=== PATIENT | female | born 1935 | race African-American/Black ===

== ENCOUNTER 2017-01-25 13:21 | Inpatient (IN) | payer MEDICARE ==
[2017-01-25 14:05] LABS: Hematocrit 45 % (35-47); Hemoglobin 14.3 g/dl (12.0-16.0); Mean Corpuscular HGB Conc 32 g/dl (31-36); Mean Corpuscular Hemoglobin 29 pg (27-31); Mean Corpuscular Volume 92 fL (80-97); Mean Platelet Volume 10 um3 (7.4-10.4); Red Cell Distribution Width 17 % (10.5-15); White Blood Count 5.5 10^3/ul (3.5-10.8)
[2017-01-25 14:07] LABS: Add Diff/Slide Review? Slide Review Added; Comments Flag Yes
[2017-01-25 14:33] LABS: Troponin I 0.03 ng/mL (<0.04)
[2017-01-25 14:42] LABS: Albumin 3.3 g/dL (3.2-5.2); BUN/Creatinine Ratio 32.6 (8-20); C Reactive Protein 17.41 mg/L (< 5.00); Calcium 8.9 mg/dL (8.6-10.3); EGFR African American 78.7 (>60); EGFR Non-African American 61.2 (>60); Potassium 4.2 mmol/L (3.5-5.0); Total Bilirubin 0.4 mg/dL (0.2-1.0); Total Protein 7.3 g/dL (6.4-8.9)
--- NOTE | 2017-01-25 18:02 | RAD ---
INDICATION: Right elbow injury COMPARISON: March 06, 2015 TECHNIQUE: AP, lateral, and oblique views were obtained. The examination is mildly limited due to positioning. FINDINGS: There is underlying osteopenia. There is no acute bony change. There is a healed distal humeral fracture. There is osteoarthritic change with sclerosis and bony hypertrophy about the articulating surfaces. There is no definite effusion. IMPRESSION: OLD, HEALED, TRANSCONDYLAR HUMERAL FRACTURE. OSTEOARTHRITIS. NO ACUTE FINDINGS
[2017-01-25] MEDS ORDERED: Insulin LISPRO* 1 UNITS UNIT SUBCUT ONE (18:04)
[2017-01-25] MEDS ORDERED: NS 0.9% 1000 ML* 1,000 ML IV ONE (18:05)
[2017-01-25] MEDS ORDERED: Insulin GLARGINE(*) 1 UNITS UNIT SUBCUT ONE (18:05)
--- NOTE | 2017-01-25 18:09 | ED ---
Rita Lai Edward, scribed for Zainab Javier MD on 01/25/17 at 1725 . HPI Diabetic - HPI Summary HPI Summary: 81 y/o female with Type I DM presents to ED c/o high blood sugar. Pt's blood glucose was 570 at triage. Patient denies diarrhea and vomiting. She states she may have missed a couple of doses of her medication but is unsure. Pt also fell yesterday and now has L elbow pain. PMHx DM type 1. - History Of Current Complaint Chief Complaint: EDDiabeticProb Hx Obtained From: Patient Onset/Duration: Sudden Onset, Still Present Timing: Constant - Allergies/Home Medications Allergies/Adverse Reactions: Allergies Allergy/AdvReac Type Severity Reaction Status Date / Time Aspirin Allergy Intermediate Bleeding Verified 05/29/16 10:03 Hydroxychloroquine Allergy Intermediate Rash Verified 05/29/16 10:03 Latex Allergy Mild Rash Verified 05/29/16 10:03 Amitriptyline Allergy Unknown Unknown Verified 05/29/16 10:03 Reaction Details Penicillins Allergy Unknown Unknown Verified 05/29/16 10:03 Reaction Details PMH/Surg Hx/FS Hx/Imm Hx Previously Healthy: No Endocrine/Hematology History: Reports: Hx Diabetes - TYPE 1 Denies: Hx Anemia Cardiovascular History: Reports: Hx Hypertension, Other Cardiovascular Problems/ Disorders - MYXOMA HEART Denies: Hx Pacemaker/ICD Respiratory History: Reports: Hx Chronic Obstructive Pulmonary Disease (COPD), Other Respiratory Problems/Disorders - COPD GI History: Denies: Hx Jaundice Musculoskeletal History: Reports: Hx Arthritis - RA, Other Musculoskeletal History - OSTEOPOROSIS Sensory History: Reports: Hx Cataracts - BILATERAL, Hx Contacts or Glasses - GLASSES Denies: Hx Hearing Aid Opthamlomology History: Reports: Hx Cataracts - BILATERAL, Hx Contacts or Glasses - GLASSES Neurological History: Reports: Hx Migraine - OCCASIONAL Denies: Hx Headaches Psychiatric History: Denies: Hx Panic Disorder - Cancer History Hx Chemotherapy: No Hx Radiation Therapy: No - Surgical History Surgery Procedure, Year, and Place: Left hip surgery 09/2011, unknown date. cataracts , right hip hemiarthroplasty 2013 Hx Anesthesia Reactions: No - Immunization History Date of Tetanus Vaccine: Unknown Infectious Disease History: Denies: Traveled Outside the [place] in Last 30 Days - Social History Lives: Alone Alcohol Use: None Hx Substance Use: No Substance Use Type: Reports: None Hx Tobacco Use: No Smoking Status (MU): Former Smoker Type: Cigarettes Amount Used/How Often: 1 PPD Have You Smoked in the Last Year: No Review of Systems Constitutional: Negative Eyes: Negative ENT: Negative Cardiovascular: Negative Respiratory: Negative Gastrointestinal: Negative Negative: Vomiting, Diarrhea, Nausea Genitourinary: Negative Positive: Arthralgia - L elbow pain Skin: Negative Neurological: Negative Psychological: Normal All Other Systems Reviewed And Are Negative: Yes Physical Exam Triage Information Reviewed: Yes Vital Signs On Initial Exam: Initial Vitals Temp Pulse Resp BP Pulse Ox 99.6 F 103 18 142/81 95 01/25/17 13:22 01/25/17 13:22 01/25/17 13:22 01/25/17 13:22 01/25/17 13:22 Vital Signs Reviewed: Yes Appearance: Positive: Well-Appearing, No Pain Distress Skin: Positive: Warm, Skin Color Reflects Adequate Perfusion, Dry Eyes: Positive: EOMI, MARINA ENT: Positive: Pharynx normal, TMs normal Neck: Positive: Supple, Nontender Respiratory/Lung Sounds: Positive: Clear to Auscultation, Breath Sounds Present. Negative: Rales, Rhonchi, Wheezes Cardiovascular: Positive: RRR. Negative: Murmur, Rub, Other - No gallop Abdomen Description: Positive: Nontender, Soft. Negative: Distended, Guarding, Other: - No rebound Bowel Sounds: Positive: Present Musculoskeletal: Positive: Strength/ROM Intact, Pain @ - L elbow. Negative: Edema Left, Edema Right Neurological: Positive: Sensory/Motor Intact, Alert, Oriented to Person Place, Time, CN Intact II-III Psychiatric: Positive: Affect/Mood Appropriate Diagnostics - Vital Signs Vital Signs Temp Pulse Resp BP Pulse Ox 01/25/17 13:22 99.6 F 103 18 142/81 95 - Laboratory Lab Results: Lab Results 01/25/17 01/25/17 Range/Units 13:48 13:48 WBC 5.5 (3.5-10.8) 10^3/ul RBC 4.90 (4.0-5.4) 10^6/ul Hgb 14.3 (12.0-16.0) g/dl Hct 45 (35-47) % MCV 92 (80-97) fL MCH 29 (27-31) pg MCHC 32 (31-36) g/dl RDW 17 H (10.5-15) % Plt Count 167 (150-450) 10^3/ul MPV 10 (7.4-10.4) um3 Neut % (Auto) 69.5 (38-83) % Lymph % (Auto) 19.9 L (25-47) % Angelina % (Auto) 7.2 (1-9) % Eos % (Auto) 2.8 (0-6) % Baso % (Auto) 0.6 (0-2) % Absolute Neuts (auto) 3.9 (1.5-7.7) 10^3/ul Absolute Lymphs (auto) 1.1 (1.0-4.8) 10^3/ul Absolute Monos (auto) 0.4 (0-0.8) 10^3/ul Absolute Eos (auto) 0.2 (0-0.6) 10^3/ul Absolute Basos (auto) 0 (0-0.2) 10^3/ul Absolute Nucleated RBC 0.01 10^3/ul Nucleated RBC % 0.2 Sodium 132 L (133-145) mmol/L Potassium 4.2 (3.5-5.0) mmol/L Chloride 103 (101-111) mmol/L Carbon Dioxide 22 (22-32) mmol/L Anion Gap 7 (2-11) mmol/L BUN 29 H (6-24) mg/dL Creatinine 0.89 (0.51-0.95) mg/dL Est GFR ( Amer) 78.7 (>60) Est GFR (Non-Af Amer) 61.2 (>60) BUN/Creatinine Ratio 32.6 H (8-20) Glucose 571 H* (70-100) mg/dL Calcium 8.9 (8.6-10.3) mg/dL Total Bilirubin 0.40 (0.2-1.0) mg/dL AST 15 (13-39) U/L ALT 12 (7-52) U/L Alkaline Phosphatase 59 (34-104) U/L Troponin I 0.03 (<0.04) ng/mL C-Reactive Protein 17.41 H (< 5.00) mg/L Total Protein 7.3 (6.4-8.9) g/dL Albumin 3.3 (3.2-5.2) g/dL Globulin 4.0 (2-4) g/dL Albumin/Globulin Ratio 0.8 L (1-3) Result Diagrams: 01/25/17 13:48 01/25/17 13:48 Lab Statement: Any lab studies that have been ordered have been reviewed, and results considered in the medical decision making process. - Radiology ELBOW XR Xray Interpretation: No Acute Changes - OLD, HEALED, TRANSCONDYLAR HUMERAL FRACTURE. OSTEOARTHRITIS. NO ACUTE FINDINGS Radiology Interpretation Completed By: Radiologist Diabetic Course/Dx - Course Course Of Treatment: 81 yo female with high blood sugars, admitted to hospitalists - Diagnoses Provider Diagnoses: Type 1 diabetes mellitus, uncontrolled, Elbow contusion Discharge - Discharge Plan Condition: Stable Disposition: HOME The documentation as recorded by the Rita rodriguez Edward accurately reflects the service I personally performed and the decisions made by , Zainab Javier MD.
[2017-01-25] MEDS ORDERED: NS 0.9% 1000 ML* 1,000 ML IV SCH ×2 (18:15→20:00)
[2017-01-25] MEDS ORDERED: Dextrose 50% Syringe 50 ML* 25 GM/50 ML SYRINGE IV PUSH PRN (19:58)
[2017-01-25] MEDS ORDERED: Naproxen TAB* 250 MG PO PRN (20:08)
--- NOTE | 2017-01-25 20:50 | RAD ---
INDICATION: Fall. Intracranial injury. COMPARISON: September 15, 2014 TECHNIQUE: Noncontrast axial source images were acquired from the skull base to the vertex. FINDINGS: Ventricles/sulci: There is advanced cortical atrophy with compensatory dilatation of the CSF spaces. Brain parenchyma: There is extensive periventricular and subcortical white matter change compatible with chronic ischemia. Intracranial hemorrhage:None. Extra-axial spaces: There are no abnormal extra axial fluid collections or evidence of extra-axial mass. Calvarium: There is no calvarial fracture or other calvarial abnormality. Scalp: There is no evidence of scalp or extracalvarial soft tissue abnormality. Paranasal sinuses/mastoid: The paranasal sinuses and mastoid air cells are clear. Other: None. IMPRESSION: ADVANCED CORTICAL ATROPHY AND CHRONIC MICROVASCULAR ISCHEMIC CHANGE. NO ACUTE FINDINGS
[2017-01-25] MEDS: Propranolol TAB* 20 MG PO SCH (22:14)
[2017-01-25] MEDS: Heparin VIAL(*) 5000 UNITS/ML VIAL (FIVE THOUSAND) SUBCUT SCH (22:16)
[2017-01-26] MEDS: Heparin VIAL(*) 5000 UNITS/ML VIAL (FIVE THOUSAND) SUBCUT SCH ×3 (05:37→21:12)
--- NOTE | 2017-01-26 08:13 | HP ---
CC: Dr. Bates * HISTORY AND PHYSICAL: DATE OF ADMISSION: 01/25/17 PRIMARY CARE PHYSICIAN: Dr. Bates. CHIEF COMPLAINT: Status post fall and high sugar. HISTORY OF PRESENT ILLNESS: Patient is a 81-year-old female with history of insulin-dependent diabetes and rheumatoid arthritis, who has had problems with recent weight loss and had been evaluated by Dr. Bates for that. She presents to the hospital with her sister. Patient lives alone and she ambulates with a cane. Yesterday, she called her sister when she was lying on the floor after a fall and could not get up. She hit her right elbow. She also stated that she hit her head, but she did not lose consciousness. She stated that when she was waking she felt of a sudden dizzy and she fell down. She denies any chest pain or shortness of breath. She came in to the ED today for evaluation of right elbow that felt "sore" after the fall. She also noted that she did not take her insulin last night and no insulin today in the morning and she took her dose at 11 a.m. just before she presented to the emergency department. In the emergency department, her sugars were initially reported as 571, but without any intervention several hours later, her glucose was noted at 183 and currently is 165 at the time of admission. Patient also had slight of lactic acid at 2.3. She is hyponatremia and appears dehydrated. She is going to be placed on overnight observation with diagnosis of hyperglycemia. PAST MEDICAL HISTORY: 1. Insulin-dependent diabetes. 2. History of benign breast mass resection. 3. History of "impairment cognitive function." 4. History of rheumatoid arthritis mostly in bilateral hands. 5. History of COPD and pulmonary fibrosis, idiopathic. Patient is on oxygen at 3 L at night only. 6. Hypertension. 7. History of fracture of the left hip. 8. Hypercholesterolemia. 9. History of migraines. MEDICATIONS AT HOME: Include: 1. Lantus insulin 6 units b.i.d. and insulin lispro with sliding scale with meals. 2. Patient also uses Ditropan 5 mg daily. 3. Propranolol 20 mg b.i.d. 4. Vitamin D2, 50,000 units weekly. 5. Oyster shell calcium 500 mg b.i.d. 6. Fioricet one tablet every 4 hours p.r.n. 7. Megace 40 mg daily. 8. Prednisone 3 mg daily. 9. Amlodipine 5 mg daily. 10. Potassium chloride 20 mEq daily. 11. Naproxen 500 mg b.i.d. p.r.n. ALLERGIES: Include ASPIRIN causes "bleeding"; HYDROXYCHLOROQUINE causes rash; LATEX, rash; AMITRIPTYLINE and PENICILLIN are also on patient's allergy list. FAMILY HISTORY: Positive for mother with history of colon cancer, who at age of 84 and father with history of "groin aneurysm" who in his 70s secondary to that. SOCIAL HISTORY: Patient has history of 50-pack year smoking, currently does not smoke anymore. She denies any alcohol or drug use. She lives by herself. Her sister, Lana Sanchez, is her surrogate. Patient ambulates with a cane. REVIEW OF SYSTEMS: Please see history of present illness. In addition to the above mentioned, the patient complains of right elbow pain. She stated that she had history of fracture of the right elbow in the past that is healed. She has no problems with range of motion. She did state that she hit her head yesterday when she fell. She denies any chest pain. She states that she usually does get short of breath with minimal exertion and that is chronic due to pulmonary fibrosis and COPD. Patient denies chest pain. Patient has history of chronic bilateral lower extremity edema that is worse when she is standing for a prolonged period of times. Her appetite had been very poor, and the patient's sister is very concern in regards to that. She is to wear oxygen at night at 3 L, but had been refusing in the past. All the remaining 14 systems were reviewed with the patient and patient's sister and were otherwise negative. PHYSICAL EXAMINATION GENERAL: This is a very pleasant 81-year-old female who is in no acute distress. The patient is alert, awake, oriented x3. Rather is a poor historian. VITAL SIGNS: Blood pressure of 165/98, heart rate of 75 and regular, respiratory rate 16, oxygen saturation 91% on room air, temperature 97.7. HEENT: Head, atraumatic, normocephalic. Eyes: Pupils equal and reactive to light and accommodation. Oropharynx clear. Mucosa dry. NECK: Supple. No JVD, no bruit bilaterally. RESPIRATORY: Clear to auscultation bilaterally. CARDIOVASCULAR: Regular rate and rhythm. No murmur. ABDOMEN: Soft, nontender. Bowel sounds present in all 4 quadrants. Slightly distended and tympanitic to percussion. EXTREMITIES: There is +1 pitting pedal edema. Pulses are +2 bilaterally. There is no clubbing or cyanosis. NEUROLOGIC: Speech clear. Cranial nerves II through XII grossly intact. Motor strength is 5/5 bilaterally. On evaluation of the extremities, the patient has right elbow slight contusion and edema, but no problems with range of motion. LABORATORY DATA AND STUDIES: Obtained in the ED are as below: Elbow x-ray on the right side obtained at admission, impression: "Old healed transcondylar humeral fracture and osteoarthritis. No acute findings". CT of brain is pending at the time of dictation. Laboratory values: Sodium of 132, potassium 4.2, chloride 103, carbon dioxide 22, BUN 29, creatinine 0.89. Liver function tests were unremarkable. C- reactive protein of 17, glucose of 571. CBC: White blood cell count of 5.5, hemoglobin of 14.3, hematocrit of 45, and platelets of 167. Patient's urinalysis is pending at the time of dictation. ASSESSMENT AND PLAN: 1. Mariajose Palacios is a 81-year-old female with history of diabetes type 1, insulin controlled but appears brittle, who presented to the hospital after a fall. Patient appears to have a fall, noncompliant with her medications. Apparently, she forgot to take her insulin in the recent past and she has not been taking it routinely since her fall yesterday. It appears that her sugars improved with one dose of her insulin Lantus at 6 units that she administered at home prior to her arrival to the ED. At this point, I will continue her Lantus insulin at 6 units twice a day with insulin lispro sliding scale. 2. Fall. Patient appears mildly dehydrated. I will place the patient on gentle intravenous hydration with normal saline at 75 mL an hour having in mind that the patient's total body weight is 98 pounds. I will also obtain physical therapy, occupational therapy evaluation for safety of patient's discharge home. Patient is going to be placed on observation. 3. In regards to patient's rheumatoid arthritis, patient is going to be continued on prednisone and her remaining medications as previously prescribed at home. 4. For deep venous thrombosis prophylaxis, patient is going to be placed on heparin subcutaneously. 5. Patient's code status is full and her surrogate is her sister, Lana. TIME SPENT: Approximately 70 minutes were spent on admission of this patient, more than half that time was spent [id number] with the patient doing the interview, physical exam. [id number]/CPS #: [id number] MTDD
--- NOTE | 2017-01-26 08:51 | PN ---
Subjective - Subjective Reason for Note: Progress Note History: I reviewed her presentation with the patient, and Dr. Hubbard's H and P. 2 days ago - sister Janet Sanchez she was there in the morning. She called Janet - was on the floor and helped her up. Gave her something to eat. Cleaned her up - incontinent of urine. She was sitting in a chair watching TV when she left. Went back y'day morning - had sat in that chair all night - as though she was afraid to get up/fall. She wouldn't get out of the chair. Gave her b' fast - hungry. Nephew lifted her to her feet to stand up to get her ready to go to the hospital. her right arm was hurting and slightly swollen. FS machine didn't work - battery were low. Had to belt picker new batteries. FS 400s. She took her insulin - she had not taken her lantus. She has been more confused - states she takes her lantus usually. She was hyperglycemic at the hospital. Her sister is becoming more and more concerned - she has become incontinent of urine. Her sister states the walker/cane was not near her when she fell - doesn't use them at home. SH: She lives independently in her home - but is precarious. Her sister sees her on a daily basis - in the mornings. Most of the times she has already taken her insulin. She will fix her breakfast. Main hazards - walking. She is unsteady - refuses O2 most of the time. Worry about falling - has a walker and cane. She uses her walker at night to go to bed. This morning she has pain in her right elbow. She is hungry and has no other pain. She has no other focal symptoms. Active Problems: Active Problems Breast cancer, left (Acute) C50.912 DVT prophylaxis (Acute 09/15/14) [id number] Fall (Acute) Fracture of femoral neck, right (Acute 09/15/14) S72.001A Full code status (Acute 09/15/14) Z78.9 Hyperglycemia (Acute) R73.9 Weight loss (Acute) Chronic obstructive lung disease (Chronic) J44.9 Essential hypertension (Chronic) I10 Fibrosis of lung (Chronic) J84.10 History of fracture of left hip (Chronic) Z87.81 History of right hip hemiarthroplasty (Chronic) Z96.641 Hypercholesteremia (Chronic) E78.0 Migraine (Chronic) G43.909 Osteoporosis (Chronic) M81.0 Rheumatoid arthritis (Chronic) M06.9 Type 1 diabetes mellitus, uncontrolled (Chronic) E10.65 Current Medications: Current Medications Acetaminophen/Butalbital/Caffeine (Fioricet Tab*) 1 tab PO Q4HR PRN PRN Reason: MIGRAINE HEADACHE Amlodipine Besylate (Norvasc Tab*) 5 mg PO DAILY [facility] Dextrose (D50w Syringe 50 Ml*) 12.5 gm IV PUSH .FOR FS < 60 - SS PRN PRN Reason: FS < 60 Heparin Sodium (Porcine) (Heparin Vial(*)) 5,000 units SUBCUT Q8HR [facility] Last Admin: 01/26/17 05:37 Dose: 5,000 units Sodium Chloride (Ns 0.9% 1000 Ml*) 1,000 mls @ 75 mls/hr IV PER RATE [facility] Last Admin: 01/25/17 21:21 Dose: 75 mls/hr Insulin Glargine (Lantus(*)) 6 units SUBCUT BID [facility] Insulin Human Lispro (Humalog*) 0 units SUBCUT AC LAM PRN Reason: Protocol Megestrol Acetate (Megace Susp*) 40 mg PO DAILY [facility] Naproxen (Naprosyn Tab*) 250 mg PO Q8H PRN PRN Reason: PAIN Oxybutynin Chloride (Ditropan Xl Tab*) 5 mg PO DAILY [facility] Potassium Chloride (Klor Con Er Tab*) 20 meq PO DAILY WITH MEAL [facility] Prednisone (Deltasone Tab*) 3 mg PO DAILY [facility] Propranolol HCl (Inderal Tab*) 20 mg PO BID [facility] Last Admin: 01/25/17 22:14 Dose: 20 mg Home Medications: Home Medications Medication Instructions Recorded Confirmed Type Propranolol TAB* [Inderal TAB*] 20 mg PO BID 09/26/12 01/25/17 History amLODIPine TAB* [Norvasc 5 mg TAB*] 5 mg PO DAILY 04/03/14 01/25/17 History Lrrqxnathk-Ajjhvmwxhrkmp-Lthde 1 tab PO Q4HR PRN MDD 6 tabs 04/23/14 01/25/17 History [Butalbital/Acetaminophen/ 50-325-40 mg] Ergocalciferol [Vitamin D2] 50,000 unit PO WEEKLY 04/23/14 01/25/17 History Oyster Shell [Oyster Shell Calcium] 500 mg PO BID 04/23/14 01/25/17 History predniSONE TAB* [Deltasone TAB*] 3 mg PO DAILY 04/23/14 01/25/17 History Insulin Lispro [Humalog Kwikpen] 2 unit SUBCUT BID 01/25/17 01/25/17 History Megestrol SUSP* [Megace SUSP*] 40 mg PO DAILY 01/25/17 01/25/17 History Naproxen [Naproxen 500 mg] 500 mg PO BID PRN 01/25/17 01/25/17 History Oxybutynin XL TAB* [Ditropan Xl 5 mg PO DAILY 01/25/17 01/25/17 History TAB*] Potassium Chlor TAB* [Klor Con ER 20 meq PO DAILY WITH MEAL 01/25/17 01/25/17 History TAB*] Allergies: Allergies Allergy/AdvReac Type Severity Reaction Status Date / Time Aspirin Allergy Intermediate Bleeding Verified 01/25/17 19:44 Hydroxychloroquine Allergy Intermediate Rash Verified 01/25/17 19:44 Latex Allergy Mild Rash Verified 01/25/17 19:44 Amitriptyline Allergy Unknown Unknown Verified 01/25/17 19:44 Reaction Details Penicillins Allergy Unknown Unknown Verified 01/25/17 19:44 Reaction Details Objective - Vital Signs Vital Signs: Vital Signs 01/25/17 01/25/17 01/25/17 19:11 20:09 20:36 Temperature 97.7 F 99.2 F 98.1 F Pulse Rate 75 105 Respiratory 16 20 Rate Blood Pressure 165/98 140/72 (mmHg) O2 Sat by Pulse 91 94 Oximetry 01/25/17 01/26/17 01/26/17 23:22 03:28 07:21 Temperature 98.5 F 98.8 F Pulse Rate 105 93 91 Respiratory 16 15 18 Rate Blood Pressure 154/100 153/94 141/97 (mmHg) O2 Sat by Pulse 86 100 Oximetry - Intake and Output Intake and Output: Intake & Output 01/23/17 01/24/17 01/25/17 01/26/17 11:59 11:59 11:59 11:59 Intake Total 860 Balance 860 Weight 86 lb 9.6 oz Intake: IV Fluids 660 NS (0.9%) 660 Oral 200 Other: Estimated Void Large # Bowel Movements 0 # Voids 2 Intake and Output Start: 01/25/17 19: 13 Freq: DAILY@0600,1400,2200 Status: Active Document 01/26/17 03:49 [id number] (Rec: 01/26/17 03:49 [id number]) - Physical Exam General Physical Exam Comment: She is frail and very thin. Right elbow has no deformity and full ROM General: No Cyanosis, No Anemia, No Jaundice, No Clubbing Skin: Normal: Rash Lungs and Chest: Yes: Chest Expansion Full, Chest Expansion Symetrica, Percussion Note Resonant, Vessicular Breath Sounds. No: Crackles, Wheezes Heart Rate and Rhythm: Regular JVP: Not Elevated Additional Cardiovascular: Yes: Normal Heart Sounds. No: [place] Beat not Displaced - She has a prominent apex beat/Left ventricular heave, Heart Murmur, Pedal Edema Abdominal Exam: Yes: Soft, Bowel Sounds Present. No: Distention, Abdominal Mass , Abdominal Tenderness - Extremities Cranial Nerves II-XII Intact: Yes Limbs: Normal Tone, Normal Coordination, Abnormal Power - generally weak - not focal - Neuro Orientation: A/O x3 Speech: Normal Results - Results Lab Results: Laboratory Results - last 24 hr 01/25/17 01/25/17 18:48 18:52 POC Glucose (mg/dL) 183 H 165 H Radiology Results: Patient Name: MARIAJOSE MAURICIO Medical Record#: [id number] Ordering Physician: Lupe Hubbard MD Acct.#: [id number] : 1935 Age: 81 Sex: F Location: [address] [place] [address] - MEDICAL Exam Date: 01/25/172009 ADM Status: ADM Micheal Order Information: CT BRAIN WO Accession Number: [id number] CPT: 62072 INDICATION: Fall. Intracranial injury. COMPARISON: September 15, 2014 TECHNIQUE: Noncontrast axial source images were acquired from the skull base to the vertex. FINDINGS: Ventricles/sulci: There is advanced cortical atrophy with compensatory dilatation of the CSF spaces. Brain parenchyma: There is extensive periventricular and subcortical white matter change compatible with chronic ischemia. Intracranial hemorrhage:None. Extra-axial spaces: There are no abnormal extra axial fluid collections or evidence of extra-axial mass. Calvarium: There is no calvarial fracture or other calvarial abnormality. Scalp: There is no evidence of scalp or extracalvarial soft tissue abnormality. Paranasal sinuses/mastoid: The paranasal sinuses and mastoid air cells are clear. Other: None. IMPRESSION: ADVANCED CORTICAL ATROPHY AND CHRONIC MICROVASCULAR ISCHEMIC CHANGE. NO ACUTE FINDINGS <Electronically signed by Damian Lewis MD in OV> 01/25/172046 Dictated By: Damian Lewis MD Dictated Date/Time: 01/25/172046 Transcribed Date/Time: 01/25/172042 Copy to: CC:Toni Bates MD; Lupe Hubbard MD Imaging - [facility] Imaging [facility] [address] 1 of Patient Name: MARIAJOSE MAURICIO Medical Record#: [id number] Ordering Physician: Zainab Javier MD Acct.#: [id number] : 1935 Age: 81 Sex: F Location: EMERGENCY DEPARTMENT Exam Date: 01/25/171712 ADM Status: REG ER Order Information: ELBOW RIGHT 3+ VWS Accession Number: [id number] CPT: 30160 INDICATION: Right elbow injury COMPARISON: March 06, 2015 TECHNIQUE: AP, lateral, and oblique views were obtained. The examination is mildly limited due to positioning. FINDINGS: There is underlying osteopenia. There is no acute bony change. There is a healed distal humeral fracture. There is osteoarthritic change with sclerosis and bony hypertrophy about the articulating surfaces. There is no definite effusion. IMPRESSION: OLD, HEALED, TRANSCONDYLAR HUMERAL FRACTURE. OSTEOARTHRITIS. NO ACUTE FINDINGS <Electronically signed by Damian Lewis MD in OV> 01/25/171758 Dictated By: Damian Lewis MD Dictated Date/Time: 01/25/171758 Transcribed Date/Time: 01/25/171755 Copy to: CC:Toni Bates MD; [facility]; Zainab Javier MD Imaging - [facility] Imaging - [facility] Imaging - [facility] [address] [place], [place] [id number] [place] [id number] [place] [id number] ph [phone] ph [phone] ph [phone]) 1 of 1 Assessment - Problem List Assessment: Patient Problems Breast cancer, left (Acute) DVT prophylaxis (Acute 09/15/14) Fall (Acute) Fracture of femoral neck, right (Acute 09/15/14) Full code status (Acute 09/15/14) Hyperglycemia (Acute) Weight loss (Acute) Chronic obstructive lung disease (Chronic) Essential hypertension (Chronic) Fibrosis of lung (Chronic) History of fracture of left hip (Chronic) History of right hip hemiarthroplasty (Chronic) Hypercholesteremia (Chronic) Migraine (Chronic) Osteoporosis (Chronic) Rheumatoid arthritis (Chronic) Type 1 diabetes mellitus, uncontrolled (Chronic) Myxoma of heart (Chronic) Plan: Fall (Acute) Mariajose Mauricio doesn't remember why she fell. She is unsteady and weak. She doesn't use her cane/walker at home and often is not wearing her O2. She injured her right elbow - but she has a normal range of motion and no fracture on radiology. She is frail and her home situation is precarious at the best of times - something her family acknowledges. However, she is fiercely independent. She is able to stand independently from bed walk with a cane this morning with an RN on one side and myself on the other. She looks weak. I see no acute cause for this fall aside from her weakness, refusal to use walker/ cane and history of multiple previous falls over the past few years. It is possible she has had another small CVA - but she shows no focal abnormalities. She is losing weight and is likely failing to thrive. We checked a CT scan abdo /pelvis - this was a limited study as she didn't complete the oral contrast - but there were no signs of any malignancy. I discussed the management plan with the patient, sister and land planner: we will have an OT/PT consultation. If they feel she is safe for discharge, she can go home and we will continue outpatient evaluation. If she is unsafe, we will consider rehabilitation and I will look further at underlying cause for her weight loss - though out of control T1D is quite likely. Breast cancer, left (Acute) No evidence of any further spread DVT prophylaxis (Acute 09/15/14) ongoing Fracture of femoral neck, right (Acute 09/15/14) Hyperglycemia (Acute) This came under rapid control with usual insulin Weight loss (Acute) Her weight is dropping rapidly - on 01/12/2017 she was 95 lbs in my office. She was clothed, and in the hospital she was likely in a gown. However, she has continued weigh loss. I will consider metabolic, endocrine and neoplastic processes. However, most likely she is not coping with living independently Chronic obstructive lung disease (Chronic) I will check a CXR Essential hypertension (Chronic) Running a little high Fibrosis of lung (Chronic) secondary diagnosis History of fracture of left hip (Chronic) History of right hip hemiarthroplasty (Chronic) Hypercholesteremia (Chronic) secondary diagnosis Migraine (Chronic) secondary diagnosis Osteoporosis (Chronic) High risk of significant fractures Rheumatoid arthritis (Chronic) secondary diagnnosis Type 1 diabetes mellitus, uncontrolled (Chronic) major problem with compliance and highly labile diabetes I discussed the above with the patient and she agrees with the plan.
[2017-01-26] MEDS ORDERED: MEGESTROL 40 MG/ML PO SCH (09:00)
[2017-01-26] MEDS: Propranolol TAB* 20 MG PO SCH ×2 (09:36→21:12)
[2017-01-26] MEDS: predniSONE TAB* 1 MG PO SCH (09:36)
[2017-01-26] MEDS: Insulin LISPRO* 1 UNITS UNIT SUBCUT SCH ×3 (09:36→17:26)
[2017-01-26] MEDS: amLODIPine TAB* 5 MG PO SCH (09:36)
[2017-01-26] MEDS: Potassium Chlor TAB* 10 MEQ TAB.ER PO SCH (09:36)
[2017-01-26] MEDS: Oxybutynin XL TAB* 5 MG PO SCH (09:36)
[2017-01-26] MEDS: Insulin GLARGINE(*) 1 UNITS UNIT SUBCUT SCH ×2 (09:37→21:12)
--- NOTE | 2017-01-26 10:47 | RAD ---
INDICATION: Weight loss. COMPARISON: Comparison is made with prior chest x-ray studies from November 10, 2012 and March 02, 2014. TECHNIQUE: Dual-energy PA and lateral views of the chest were obtained. FINDINGS: The heart is within normal limits in size. There is prominence of the central pulmonary vessels suggesting the possibility of pulmonary artery hypertension which appears unchanged. The interstitial markings are increased which are most prominent at the lung bases and have progressed slightly from the prior exam most consistent with chronic interstitial lung disease. No focal infiltrate is seen. No pleural effusion is present. IMPRESSION: FINDINGS MOST CONSISTENT WITH CHRONIC INTERSTITIAL LUNG DISEASE, NO EVIDENCE FOR ACUTE FINDING.
[2017-01-27] MEDS: Heparin VIAL(*) 5000 UNITS/ML VIAL (FIVE THOUSAND) SUBCUT SCH ×3 (05:32→22:34)
[2017-01-27 05:57] LABS: Hematocrit 40 % (35-47); Hemoglobin 12.8 g/dl (12.0-16.0); Mean Corpuscular HGB Conc 32 g/dl (31-36); Mean Corpuscular Hemoglobin 30 pg (27-31); Mean Corpuscular Volume 94 fL (80-97); Mean Platelet Volume 10 um3 (7.4-10.4); Red Blood Count 4.28 10^6/ul (4.0-5.4); Red Cell Distribution Width 17 % (10.5-15); White Blood Count 4.8 10^3/ul (3.5-10.8)
[2017-01-27 06:14] LABS: BUN/Creatinine Ratio 21.9 (8-20); C Reactive Protein 19.71 mg/L (< 5.00); Calcium 8.3 mg/dL (8.6-10.3); EGFR African American 115.1 (>60); EGFR Non-African American 89.5 (>60); Potassium 3.6 mmol/L (3.5-5.0)
--- NOTE | 2017-01-27 08:51 | PN ---
Subjective - Subjective Reason for Note: Progress Note History: She continues to have pain in her right elbow. I have reviewed the PT report - recommends skilled rehab. She has no insight into why she is losing weight. She states sometimes she is hungry, but likely doesn't eat enough. She is hyperglycemic in the hospital on her usual insulin. She is fully oriented x 3 and aware of why she is in the hospital. She denies any new focal symptoms. Active Problems: Active Problems Fall (Acute) Hyperglycemia (Acute) R73.9 Injury of right elbow (Acute) S59.901A Weight loss (Acute) Chronic obstructive lung disease (Chronic) J44.9 DVT prophylaxis (Chronic 09/15/14) [id number] Essential hypertension (Chronic) I10 Fibrosis of lung (Chronic) J84.10 Fracture of femoral neck, right (Chronic 09/15/14) S72.001A Full code status (Chronic 09/15/14) Z78.9 History of fracture of left hip (Chronic) Z87.81 History of right hip hemiarthroplasty (Chronic) Z96.641 Hypercholesteremia (Chronic) E78.0 Migraine (Chronic) G43.909 Osteoporosis (Chronic) M81.0 Rheumatoid arthritis (Chronic) M06.9 Type 1 diabetes mellitus, uncontrolled (Chronic) E10.65 Current Medications: Current Medications Acetaminophen/Butalbital/Caffeine (Fioricet Tab*) 1 tab PO Q4HR PRN PRN Reason: MIGRAINE HEADACHE Amlodipine Besylate (Norvasc Tab*) 5 mg PO DAILY [facility] Last Admin: 01/26/17 09:36 Dose: 5 mg Dextrose (D50w Syringe 50 Ml*) 12.5 gm IV PUSH .FOR FS < 60 - SS PRN PRN Reason: FS < 60 Heparin Sodium (Porcine) (Heparin Vial(*)) 5,000 units SUBCUT Q8HR [facility] Last Admin: 01/27/17 05:32 Dose: 5,000 units Insulin Glargine (Lantus(*)) 6 units SUBCUT BID [facility] Last Admin: 01/26/17 21:12 Dose: 6 units Insulin Human Lispro (Humalog*) 0 units SUBCUT AC [facility] PRN Reason: Protocol Last Admin: 01/26/17 17:26 Dose: 3 units Megestrol Acetate (Megace Susp*) 40 mg PO DAILY [facility] Naproxen (Naprosyn Tab*) 250 mg PO Q8H PRN PRN Reason: PAIN Oxybutynin Chloride (Ditropan Xl Tab*) 5 mg PO DAILY [facility] Last Admin: 01/26/17 09:36 Dose: 5 mg Potassium Chloride (Klor Con Er Tab*) 20 meq PO DAILY WITH MEAL [facility] Last Admin: 01/26/17 09:36 Dose: 20 meq Prednisone (Deltasone Tab*) 3 mg PO DAILY [facility] Last Admin: 01/26/17 09:36 Dose: 3 mg Propranolol HCl (Inderal Tab*) 20 mg PO BID [facility] Last Admin: 01/26/17 21:12 Dose: 20 mg Home Medications: Home Medications Medication Instructions Recorded Confirmed Type Propranolol TAB* [Inderal TAB*] 20 mg PO BID 09/26/12 01/25/17 History amLODIPine TAB* [Norvasc 5 mg TAB*] 5 mg PO DAILY 04/03/14 01/25/17 History Hsenxvrcvk-Odghgdxthxhbc-Moscq 1 tab PO Q4HR PRN MDD 6 tabs 04/23/14 01/25/17 History [Butalbital/Acetaminophen/ 50-325-40 mg] Ergocalciferol [Vitamin D2] 50,000 unit PO WEEKLY 04/23/14 01/25/17 History Oyster Shell [Oyster Shell Calcium] 500 mg PO BID 04/23/14 01/25/17 History predniSONE TAB* [Deltasone TAB*] 3 mg PO DAILY 04/23/14 01/25/17 History Insulin Lispro [Humalog Kwikpen] 2 unit SUBCUT BID 01/25/17 01/25/17 History Megestrol SUSP* [Megace SUSP*] 40 mg PO DAILY 01/25/17 01/25/17 History Naproxen [Naproxen 500 mg] 500 mg PO BID PRN 01/25/17 01/25/17 History Oxybutynin XL TAB* [Ditropan Xl 5 mg PO DAILY 01/25/17 01/25/17 History TAB*] Potassium Chlor TAB* [Klor Con ER 20 meq PO DAILY WITH MEAL 01/25/17 01/25/17 History TAB*] Allergies: Allergies Allergy/AdvReac Type Severity Reaction Status Date / Time Aspirin Allergy Intermediate Bleeding Verified 01/25/17 19:44 Hydroxychloroquine Allergy Intermediate Rash Verified 01/25/17 19:44 Latex Allergy Mild Rash Verified 01/25/17 19:44 Amitriptyline Allergy Unknown Unknown Verified 01/25/17 19:44 Reaction Details Penicillins Allergy Unknown Unknown Verified 01/25/17 19:44 Reaction Details Objective - Vital Signs Vital Signs: Vital Signs 01/26/17 01/26/17 01/26/17 15:18 19:30 20:23 Temperature 98.5 F 97.4 F Pulse Rate 78 71 Respiratory 24 18 Rate Blood Pressure 143/88 141/77 (mmHg) O2 Sat by Pulse 100 94 92 Oximetry 01/26/17 01/26/17 01/27/17 20:47 23:17 05:24 Temperature 98.6 F 97.8 F Pulse Rate 71 68 Respiratory 12 16 16 Rate Blood Pressure 151/85 163/93 (mmHg) O2 Sat by Pulse 96 100 Oximetry - Intake and Output Intake and Output: Intake & Output 01/24/17 01/25/17 01/26/17 01/27/17 11:59 11:59 11:59 11:59 Intake Total 1430 Balance 1430 Intake: Oral 1430 Other: Estimated Void Large # Bowel Movements 0 # Voids 1 ADLs: Meal Record Start: 01/25/17 19: 13 Freq: DAILY@0900,1400,1800 Status: Active Document 01/26/17 09:00 [id number] (Rec: 01/26/17 13:53 [id number] MED-C11) Document 01/26/17 13:53 [id number] (Rec: 01/26/17 13:53 [id number] MED-C11) Document 01/26/17 18:00 [id number] (Rec: 01/26/17 19:06 [id number] MED-C11) ADLs: Meal Record Start: 01/26/17 15: 52 Freq: DAILY@0900,1400,1800 Status: Inactive Created 01/26/17 15:52 [id number] (Rec: 01/26/17 15:52 [id number] MED-M06) Intake and Output Start: 01/25/17 19: 13 Freq: DAILY@0600,1400,2200 Status: Active Document 01/26/17 03:49 [id number] (Rec: 01/26/17 03:49 [id number] MEDL-C01) Document 01/26/17 14:00 [id number] (Rec: 01/26/17 14:58 [id number] MED-C11) Document 01/26/17 22:00 [id number] (Rec: 01/26/17 22:10 [id number] MED-C11) Document 01/26/17 23:49 [id number] (Rec: 01/26/17 23:49 [id number] MEDL-C01) Document 01/27/17 06:00 [id number] (Rec: 01/27/17 06:42 [id number] MED-C09) Intake and Output Start: 01/26/17 15: 52 Freq: DAILY@0600,1400,2200 Status: Inactive Created 01/26/17 15:52 [id number] (Rec: 01/26/17 15:52 [id number] MED-M06) - Physical Exam General Physical Exam Comment: Signs of advanced rheumatoid arthritis. Cachectic General: No Cyanosis, No Anemia, No Jaundice, No Clubbing Heart Rate and Rhythm: Normal JVP: Not Elevated Additional Cardiovascular: Yes: [place] Beat not Displaced - prominent, Normal Heart Sounds, Present Pedal Pulse. No: Heart Murmur, Pedal Edema Breast: Normal Abdominal Exam: Yes: Soft, Bowel Sounds Present. No: Distention, Abdominal Mass , Hepatomegaly, Abdominal Tenderness - Extremities Cranial Nerves II-XII Intact: Yes Limbs: Normal Power, Normal Tone, Normal Coordination - Neuro Orientation: Person Psychiatric: Depressed Speech: Normal Results - Results Lab Results: Laboratory Results - last 24 hr 01/26/17 01/26/17 01/27/17 16:26 17:25 05:29 WBC 4.8 RBC 4.28 Hgb 12.8 Hct 40 MCV 94 MCH 30 MCHC 32 RDW 17 H Plt Count 142 L MPV 10 Neut % (Auto) 38.3 Lymph % (Auto) 48.2 H [place] % (Auto) 9.8 H Eos % (Auto) 2.9 Baso % (Auto) 0.8 Absolute Neuts (auto) 1.8 Absolute Lymphs (auto) 2.3 Absolute Monos (auto) 0.5 Absolute Eos (auto) 0.1 Absolute Basos (auto) 0 Absolute Nucleated RBC 0.01 Nucleated RBC % 0.2 Sodium Potassium Chloride Carbon Dioxide Anion Gap BUN Creatinine Est GFR ( Amer) Est GFR (Non-Af Amer) BUN/Creatinine Ratio Glucose POC Glucose (mg/dL) 259 H Calcium C-Reactive Protein Cortisol 6.05 01/27/17 01/27/17 05:29 07:52 WBC RBC Hgb Hct MCV MCH MCHC RDW Plt Count MPV Neut % (Auto) Lymph % (Auto) [place] % (Auto) Eos % (Auto) Baso % (Auto) Absolute Neuts (auto) Absolute Lymphs (auto) Absolute Monos (auto) Absolute Eos (auto) Absolute Basos (auto) Absolute Nucleated RBC Nucleated RBC % Sodium 136 Potassium 3.6 Chloride 108 Carbon Dioxide 22 Anion Gap 6 BUN 14 Creatinine 0.64 Est GFR ( Amer) 115.1 Est GFR (Non-Af Amer) 89.5 BUN/Creatinine Ratio 21.9 H Glucose 317 H POC Glucose (mg/dL) 335 H Calcium 8.3 L C-Reactive Protein 19.71 H Cortisol Assessment - Problem List Assessment: Patient Problems Fall (Acute) Hyperglycemia (Acute) Injury of right elbow (Acute) Weight loss (Acute) Chronic obstructive lung disease (Chronic) DVT prophylaxis (Chronic 09/15/14) Essential hypertension (Chronic) Fibrosis of lung (Chronic) Fracture of femoral neck, right (Chronic 09/15/14) Full code status (Chronic 09/15/14) History of fracture of left hip (Chronic) History of right hip hemiarthroplasty (Chronic) Hypercholesteremia (Chronic) Migraine (Chronic) Osteoporosis (Chronic) Rheumatoid arthritis (Chronic) Type 1 diabetes mellitus, uncontrolled (Chronic) Plan: Fall (Acute) I reviewed the PT assessment - she would benefit frHyperglycemia ( Acute) Injury of right elbow (Acute) This remains tender Weight loss (Acute) She doesn't understand this and wants it investigated. I asked her about having an oncology referral, she agrees with this. I am also checking an MRI brain. I will have psychiatry see her to rule out a vegetative depression. I think she has capacity, but I want them to comment on this Chronic obstructive lung disease (Chronic) ongoing DVT prophylaxis (Chronic 09/15/14) Essential hypertension (Chronic) stable Fibrosis of lung (Chronic) Dr. Hernandez may check a CT scan of her chest Full code status (Chronic 09/15/14) I reviewed this - she wants to be full code History of fracture of left hip (Chronic) History of right hip hemiarthroplasty (Chronic) Hypercholesteremia (Chronic) ongoing Migraine (Chronic) secondary diagnosis Osteoporosis (Chronic) risk factor Rheumatoid arthritis (Chronic) ongoing Type 1 diabetes mellitus, uncontrolled (Chronic) Certainly, her chronic hyperglycemia could cause weight loss. I have increased her lantus insulin and have introduced carbohydrate counting. She has labile/brittle control and I want to avoid hypoglycemia. I discussed with her code status - she wishes to be full code. She would like to find out why she is losing weight and would like to be able to return to her home. I will therefore investigate further the failure to thrive. I will review my office notes about a mention of myxoma - I do not remember the basis for this.
[2017-01-27] MEDS: predniSONE TAB* 1 MG PO SCH (08:55)
[2017-01-27] MEDS: Potassium Chlor TAB* 10 MEQ TAB.ER PO SCH (08:55)
[2017-01-27] MEDS: amLODIPine TAB* 5 MG PO SCH (08:55)
[2017-01-27] MEDS: Insulin GLARGINE(*) 1 UNITS UNIT SUBCUT SCH (08:56)
[2017-01-27] MEDS ORDERED: Dextrose 50% Syringe 50 ML* 25 GM/50 ML SYRINGE IV PUSH PRN (08:56)
[2017-01-27] MEDS: Insulin LISPRO* 1 UNITS UNIT SUBCUT SCH ×5 (08:57→17:39)
[2017-01-27] MEDS: MEGESTROL 40 MG/ML PO SCH (09:01)
[2017-01-27] MEDS: Oxybutynin XL TAB* 5 MG PO SCH (09:05)
[2017-01-27] MEDS: Propranolol TAB* 20 MG PO SCH ×2 (09:05→22:34)
--- NOTE | 2017-01-27 11:01 | CONSULT ---
Consultation - Reason for Consultation Reason for Consultation: failure to thrive and weight loss Ordering Provider: Toni Bates Chief Complaint: fall History of Present Illness: 81 yo F w poorly controlled type 1 diabetes, rheumatoid arthritis and idiopathic pulmonary fibrosis admitted after an unwitnessed fall with unexplained weight loss and failure to thrive. Mariajose is a bit of a vague historian but reports that her baseline weight is around 108. Over an undefined period of time she has last 20 pounds, currently at 86 pounds. She reports that she has a good appetite and access to food and eats 2-3 meals per day. She denies early satiety or anorexia. She denies nausea or vomiting. She does have long standing constipation. She denies any increase in her baseline SOB and in fact admits to being noncompliant with her oxygen therapy. She denies any back pain, but does report right elbow pain after falling at home. She has no recollection of why she fell but denies being dizzy. She does not think she lost consciousness. She lives alone and her sister found her the next day and brought her in. She denies headaches, blurred vision or diplopia. She denies any known lymphadenopathy. She had a breast biopsy in May of last year for milky left nipple discharge, but it was benign. She denies rashes. She has rheumatoid arthritis in her hands but denies any exacerbation of this. She had a noncontrast scan of her abdomen in November, which was limited by lack of contrast. It did revealed marked pulmonary fibrosis and question of gastroparesis. Her labs are relatively unremarkable with the exception of a long standing protein gap. I do not see prior HIV or hepatitis testing. She did have an elevation of IgA in the past but no SPEP done. She had an echocardiogram in 2014 which showed some dilitation of the right atrium with possibility of a mass not being ruled out. She had a repeat echocardiogram this am. She was recently started on megace by Dr. Bates in attempts to improve her appetite and intake. Allergies/Medications Medication: Acetaminophen/Butalbital/Caffeine (Fioricet Tab*) 1 tab PO Q4HR PRN PRN Reason: MIGRAINE HEADACHE Amlodipine Besylate (Norvasc Tab*) 5 mg PO DAILY [facility] Last Admin: 01/27/17 08:55 Dose: 5 mg Dextrose (D50w Syringe 50 Ml*) 12.5 gm IV PUSH .FOR FS < 60 - SS PRN PRN Reason: FS < 60 Heparin Sodium (Porcine) (Heparin Vial(*)) 5,000 units SUBCUT Q8HR [facility] [place] Last Admin: 01/27/17 05:32 Dose: 5,000 units Insulin Glargine (Lantus(*)) 8 units SUBCUT BID [facility] [place] Insulin Human Lispro (Humalog*) 0 units SUBCUT AC [facility] [place] PRN Reason: Protocol Last Admin: 01/27/17 08:57 Dose: 4 units Insulin Human Lispro (Humalog*) 0 units SUBCUT AC [facility] [place] PRN Reason: Protocol Megestrol Acetate (Megace Susp*) 40 mg PO DAILY [facility] [place] Last Admin: 01/27/17 09:01 Dose: 40 mg Naproxen (Naprosyn Tab*) 250 mg PO Q8H PRN PRN Reason: PAIN Oxybutynin Chloride (Ditropan Xl Tab*) 5 mg PO DAILY [facility] [place] Last Admin: 01/27/17 09:05 Dose: 5 mg Potassium Chloride (Klor Con Er Tab*) 20 meq PO DAILY WITH MEAL [facility] [place] Last Admin: 01/27/17 08:55 Dose: 20 meq Prednisone (Deltasone Tab*) 3 mg PO DAILY [facility] [place] Last Admin: 01/27/17 08:55 Dose: 3 mg Propranolol HCl (Inderal Tab*) 20 mg PO BID [facility] [place] Last Admin: 01/27/17 09:05 Dose: 20 mg Allergies/Adverse Reactions: Allergies Allergy/AdvReac Type Severity Reaction Status Date / Time Aspirin Allergy Intermediate Bleeding Verified 01/25/17 19:44 Hydroxychloroquine Allergy Intermediate Rash Verified 01/25/17 19:44 Latex Allergy Mild Rash Verified 01/25/17 19:44 Amitriptyline Allergy Unknown Unknown Verified 01/25/17 19:44 Reaction Details Penicillins Allergy Unknown Unknown Verified 01/25/17 19:44 Reaction Details History - Past Medical History Other History: hyperlipidemia. breast biopsy, surgical. HTN. idiopathic pulmonary fibrosis. poorly controlled insulin dependant diabetes. rheumatoid arthritis. left hip ORIF - Family History Other Family History: mother colon CA in her 80s - Social History Other Social History: lives independantly, sister involved in care. smoked 50 pk yr but quit in the past. no etoh Review of Systems - Review of Systems General Comments: weight loss, fatigue, right elbow pain, baseline SOB. otherwise negative ROS Physical Exam - Physical Exam Physical Examination: Vital Signs Temp Pulse Resp BP Pulse Ox 98.7 F 69 18 156/79 98 01/27/17 07:24 01/27/17 07:24 01/27/17 07:24 01/27/17 07:24 01/27/17 07:24 frail elderly female lying flat in bed in NAD perr eomi op moist fine crackles S1 s2 nl soft nt +Bs trace le edema small, mobile, soft left axillary LN (6mm) A+0 x 3, grossly nonfocal neuro exam but did not ambulate right elbow: small amount of edema and escoriation Results - Lab Results Lab Results: 01/26/17 01/26/17 01/27/17 16:26 17:25 05:29 WBC 4.8 RBC 4.28 Hgb 12.8 Hct 40 MCV 94 MCH 30 MCHC 32 RDW 17 H Plt Count 142 L MPV 10 Neut % (Auto) 38.3 Lymph % (Auto) 48.2 H [place] % (Auto) 9.8 H Eos % (Auto) 2.9 Baso % (Auto) 0.8 Absolute Neuts (auto) 1.8 Absolute Lymphs (auto) 2.3 Absolute Monos (auto) 0.5 Absolute Eos (auto) 0.1 Absolute Basos (auto) 0 Absolute Nucleated RBC 0.01 Nucleated RBC % 0.2 Sodium Potassium Chloride Carbon Dioxide Anion Gap BUN Creatinine Est GFR ( Amer) Est GFR (Non-Af Amer) BUN/Creatinine Ratio Glucose POC Glucose (mg/dL) 259 H Calcium C-Reactive Protein Cortisol 6.05 01/27/17 01/27/17 05:29 07:52 WBC RBC Hgb Hct MCV MCH MCHC RDW Plt Count MPV Neut % (Auto) Lymph % (Auto) [place] % (Auto) Eos % (Auto) Baso % (Auto) Absolute Neuts (auto) Absolute Lymphs (auto) Absolute Monos (auto) Absolute Eos (auto) Absolute Basos (auto) Absolute Nucleated RBC Nucleated RBC % Sodium 136 Potassium 3.6 Chloride 108 Carbon Dioxide 22 Anion Gap 6 BUN 14 Creatinine 0.64 Est GFR ( Amer) 115.1 Est GFR (Non-Af Amer) 89.5 BUN/Creatinine Ratio 21.9 H Glucose 317 H POC Glucose (mg/dL) 335 H Calcium 8.3 L C-Reactive Protein 19.71 H Cortisol Laboratory Tests 01/25/17 13:48 AST 15 ALT 12 Alkaline Phosphatase 59 Total Protein 7.3 Albumin 3.3 Assessment and Plan Impression: 81 yo F w poorly controlled diabetes, marked idiopathic pulmonary fibrosis, COPD presenting with unexplained 20 lb weight loss and failure to thrive. Her laboratory evaluation is relatively unremarkable with the exception of an elevated protein gap, which might very well be explained by her rheumatoid arthritis and a polyclonal gammopathy. I do think it is reasonable with her long standing tobacco use history, to get a CT of her chest, and would repeat contrast enhanced imaging of her abdomen at that time. She has a very small left axillary node that felt benign on exam, but special attention will be give on the CT. I would also like to check hepatitis C, HIV, and a serum protein electrophoresis. I will follow up on her echocardiogram later today. Her failure to thrive might very well be related to her multiple underlying comorbidities. If this work up is unrevealing she may need more of an assisted living situation to observe caloric intake. Thank you for this consult and we will continue to follow with you.
[2017-01-27] MEDS ORDERED: Iodixanol* (CONTRAST) 320 MG/ML 100 ML SDV IV ONE (11:05)
[2017-01-27] MEDS ORDERED: Insulin LISPRO* 1 UNITS UNIT SUBCUT SCH (11:30)
--- NOTE | 2017-01-27 12:44 | RAD ---
Indication: Fell and hit head a few days ago. Generalized weakness. Failure to thrive. Comparison: January 25, 2017 CT brain. April 25, 2014 MRI brain. Technique: MeFeediaa 1.5 Erin LV618O with GEM suite. MRI brain without contrast. Report: Diffusion series is negative for acute or subacute ischemia. On the susceptibility series there are small foci of artifact consistent with hemosiderin deposition including at the LEFT inferior cerebellar hemisphere and the RIGHT cerebral hemisphere including the parietal lobe white matter, thalamus, and basal ganglia. The supratentorial foci of hemosiderin deposition are new compared with the 2014 exam. Moderate prominence of the cerebral sulci and mild prominence of the cerebellar fissures reflecting atrophy. Proportional enlargement of the ventricles. Chronic finding of extensive symmetric increased signal in the periventricular and subcortical white matter of the cerebral hemispheres most consistent with chronic small vessel ischemic disease. Negative for mass effect. No suspicious interval or extra-axial lesion evident. Preserved major intracranial flow-voids. Unremarkable orbital contents. No suspicious calvarial or skull base lesion evident. Clear paranasal sinuses and mastoid air spaces. Unremarkable scalp. IMPRESSION: 1. Involutional change and stigmata of chronic small vessel ischemic disease similar to the 2014 exam. 2. 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 3. No evidence for acute or subacute ischemia. 4. Negative for mass effect.
--- NOTE | 2017-01-27 13:58 | ECHO ---
Patient: ADEOLA MAURICIO [facility] Rec#: [id number] : 1935 Date: 01/27/2017 Age: 81y Height: 157.48 cm / 62.0 in Weight: 39.01 kg / 86.0 lbs Sex: F BSA: 1.34 Room#: 416 Admit Date#: 01/26/2017 Type: Inpatient Referring: Toni Bates MD Reading: Shalini Martinez MD Legal Office Administrator: Zeina LuuRDCS,RDMS Transthoracic Echocardiogram Indication: Right atrial mass BP: 156/79 HR: 81 Rhythm: NSR Findings History: DM, COPD, pulmonary fibrosis, HTN, former smoker Technical Comments: The study quality is good. Completed 1115 Left Ventricle: The left ventricular chamber size is decreased. Moderate concentric left ventricular hypertrophy is observed. There is a prominent septal knuckle. The estimated ejection fraction is 60-65%. There is septal flattening of the interventricular septum consistent with right ventricular volume or pressure overload. Abnormal left ventricular diastolic filling is observed, consistent with impaired relaxation. Left Atrium: The left atrium is mildly dilated. Right Ventricle: The right ventricular cavity size is normal. The right ventricular global systolic function is mildly to moderately reduced. Right Atrium: The right atrial cavity size is normal. A prominent eustachian valve is noted in the right atrium. Aortic Valve: The aortic valve is trileaflet. The aortic valve leaflets are mildly thickened. Mild aortic leaflet calcification is visualized. There is a trace of aortic regurgitation. There is no evidence of aortic stenosis. Mitral Valve: The mitral valve leaflets appear normal. There is a trace of mitral regurgitation. There is no evidence of mitral stenosis. Tricuspid Valve: The tricuspid valve leaflets are normal. There is moderate tricuspid regurgitation. There is evidence of severe pulmonary hypertension. Pulmonic Valve: The pulmonic valve appears normal. There is mild to moderate pulmonic regurgitation. Pericardium: There is a small pericardial effusion. Aorta: The aortic root appears normal. The aortic arch is not well visualized. Pulmonary Artery: The main pulmonary artery appears normal. Venous: The inferior vena cava appears normal in size. There is a greater than 50% respiratory change in the inferior vena cava dimension. Conclusions Moderate concentric left ventricular hypertrophy is observed. The estimated ejection fraction is 60-65%. Abnormal left ventricular diastolic filling is observed, consistent with impaired relaxation. There is septal flattening of the interventricular septum consistent with right ventricular volume or pressure overload, otherwise normal wall motion. The right ventricular global systolic function is mildly to moderately reduced. A linear "shelf" noted in the RA conistant with persistant eustachian valve. I don't appreciate any pathalogical mass/abnormality. There is a trace of aortic regurgitation with calcific aortic valve sclerosis. There is a trace of mitral regurgitation. There is moderate tricuspid regurgitation, medial jet. There is evidence of severe pulmonary hypertension: 69 mmHg. There is mild to moderate pulmonic regurgitation, closer to moderate. There is a small pericardial effusion, most prominant posteriorly, no evidence of filling compromise. Compared with prior echo of 09/16/14, no appreciation of myxoma seen at that time, LVEF has increased, previously 40-45%, AI is stable, the degree of MR has improved previously mild to moderate, TR stable to improved, previously moderate to severe, PA pressure previously 79 mmHg. Measurements Name Value Normal Range RVIDd (AP) 2D 2.6 cm (0.9 - 2.6) RVDdMajor (2D) 4.3 cm (2.2 - 4.4) RAd ISD 4CH 4.7 cm (3.4 - 4.9) RA (A4C)W 4.3 cm (2.9 - 4.6) IVSd (2D) 1.5 cm (0.6 - 1) LVPWd (2D) 1.3 cm (0.6 - 1) LVIDd (2D) 3.4 cm (3.6 - 5.4) LVIDs (2D) 2 cm - LV FS (2D) 42 % (25 - 45) Aortic Annulus 2 cm (1.4 - 2.6) Ao root diameter (2D) 2.9 cm (2.1 - 3.5) Ascending Ao 2.7 cm (2.1 - 3.4) LA dimension (AP) 2D 2.3 cm (2.3 - 3.8) LAd ISD 4CH 5 cm (2.9 - 5.3) LA ISD 4CH W 4.2 cm (2.5 - 4.5) Name Value Normal Range LA ESV SP 4CH (A/L) 52.65 ml - LA ESV SP 2CH (A/L) 27.89 ml - LA ESV BP (A/L) 38.48 ml - LA ESV BP (A/L) index 29 ml/m2 - LA ESV SP 4CH (MOD) 46.93 ml - LA ESV SP 2CH (MOD) 27.4 ml - Name Value Normal Range MV E-wave Vmax 0.7 m/sec - MV deceleration time 219 msec - MV A-wave Vmax 0.9 m/sec - MV E:A ratio 0.8 ratio - LV septal e' Vmax 0.04 m/sec - LV lateral e' Vmax 0.04 m/sec - LV E:e' septal ratio 17.5 ratio - LV E:e' lateral ratio 17.5 ratio - Name Value Normal Range AV Vmax 1.4 m/sec - AV VTI 28 cm - AV peak gradient 8 mmHg - AV mean gradient 3.9 mmHg - LVOT Vmax 1.1 m/sec - LVOT VTI 23.5 cm - LVOT peak gradient 5 mmHg - LVOT mean gradient 2.6 mmHg - Name Value Normal Range TR Vmax 3.9 m/sec - TR peak gradient 61 mmHg - RAP 8 mmHg - RVSP 69 mmHg - IVC diameter 2.1 cm - Name Value Normal Range PV Vmax 1.1 m/sec - PV peak gradient 5 mmHg -
--- NOTE | 2017-01-27 16:48 | RAD ---
INDICATION: Weight loss. Cough. COMPARISON: CT chest/abdomen/pelvis December 14, 2016 TECHNIQUE: Axial source images were obtained from the thoracic inlet to the symphysis pubis. Intravenous contrast was not given due to lack of IV access. The patient was not able to drink an adequate amount of oral contrast Coronal and sagittal reconstructed images were acquired. CHEST FINDINGS: Neck/thyroid: No gross mass of the visualized neck. Chest wall: There are no acute abnormalities of the bony thorax or chest wall. There is no supraclavicular, infraclavicular, or axillary lymphadenopathy. Lungs : Extensive emphysema with basilar interstitial fibrosis. No definitive nodules. Cardiomediastinal structures: The heart is normal in size. There is no pericardial effusion. There is no evidence of aortic aneurysm or dissection. There are aortic intimal calcifications The pulmonary vessels appear normal. There is no mediastinal or hilar adenopathy. The esophagus appears normal. Pleura : There are no pleural-based masses or effusions. ABDOMINAL/PELVIC FINDINGS: Liver: No focal hepatic findings on noncontrast imaging. Gallbladder: No calcified gallstones. Spleen: No mass on noncontrast imaging. Pancreas: Evaluation of pancreas is very limited due to technical factors includes the lack of adjacent oral contrast opacification, a posterior fat planes, and no intravenous contrast. Adrenal glands: No adrenal mass is appreciated. Kidneys: No mass on noncontrast evaluation. No hydronephrosis or nephrolithiasis. Adenopathy: No gross adenopathy. Moderate limitations due to technical factors. Fluid collections: There are no free or localized fluid collections. Vessels:There are advanced atherosclerotic changes of the aorta. There is no focal aneurysm. The IVC is unremarkable GI tract: Limited oral contrast opacification. No obstruction. Moderate retained stool. Possible mucosal thickening of the gastric mucosa. Consider upper endoscopy. Pelvic organs: Not adequately evaluated due to beam hardening artifact from right hip arthroplasty and postoperative changes left hip. Note is made of calcified uterine leiomyomas. Bladder: Not adequately evaluated due to beam hardening artifact from hip surgeries. Abdominal and pelvic soft tissues: Small amount of subcutaneous edema. Osseous structures: There are no acute osseous findings. There is right hip arthroplasty and there is a [place] screw in the left hip. IMPRESSION: 1. Limited study due to a paucity of fat planes, lack of intravenous contrast, and scant oral contrast. 2. Advanced emphysematous change with basilar interstitial fibrosis 3. Possible gastric mucosal thickening. Consider upper endoscopy. 4. Advanced atherosclerotic changes. 5. Right hip arthroplasty. [place] screw left hip
[2017-01-27] MEDS ORDERED: Insulin GLARGINE(*) 1 UNITS UNIT SUBCUT SCH (21:00)
[2017-01-28] MEDS: Heparin VIAL(*) 5000 UNITS/ML VIAL (FIVE THOUSAND) SUBCUT SCH ×3 (07:15→22:43)
--- NOTE | 2017-01-28 08:22 | PN ---
Subjective - Subjective Reason for Note: Progress Note History: She has no new symptoms this morning aside from being fed up with venipunctures. Her T1D remains poorly controlled - I am titrating up her basal insulin, wary of her strong tendency towards hypoglycemia. I am also aware that once independent, it is not clear how compliant she is with her insulin therapy. She states she is hungry this morning. Active Problems: Active Problems Fall (Acute) Hyperglycemia (Acute) R73.9 Injury of right elbow (Acute) S59.901A Weight loss (Acute) Chronic obstructive lung disease (Chronic) J44.9 DVT prophylaxis (Chronic 09/15/14) [id number] Essential hypertension (Chronic) I10 Fibrosis of lung (Chronic) J84.10 Fracture of femoral neck, right (Chronic 09/15/14) S72.001A Full code status (Chronic 09/15/14) Z78.9 History of fracture of left hip (Chronic) Z87.81 History of right hip hemiarthroplasty (Chronic) Z96.641 Hypercholesteremia (Chronic) E78.0 Migraine (Chronic) G43.909 Osteoporosis (Chronic) M81.0 Rheumatoid arthritis (Chronic) M06.9 Type 1 diabetes mellitus, uncontrolled (Chronic) E10.65 Current Medications: Current Medications Acetaminophen/Butalbital/Caffeine (Fioricet Tab*) 1 tab PO Q4HR PRN PRN Reason: MIGRAINE HEADACHE Amlodipine Besylate (Norvasc Tab*) 5 mg PO DAILY FORMERLY [facility], [facility]1983 Last Admin: 01/27/17 08:55 Dose: 5 mg Dextrose (D50w Syringe 50 Ml*) 12.5 gm IV PUSH .FOR FS < 60 - SS PRN PRN Reason: FS < 60 Heparin Sodium (Porcine) (Heparin Vial(*)) 5,000 units SUBCUT Q8HR FOR[facility], 1928–1983 Last Admin: 01/28/17 07:15 Dose: 5,000 units Insulin Glargine (Lantus(*)) 8 units SUBCUT BID FOR[facility], [facility]–1983 Last Admin: 01/27/17 22:34 Dose: 8 units Insulin Human Lispro (Humalog*) 0 units SUBCUT AC [facility], [facility]–1983 PRN Reason: Protocol Last Admin: 01/27/17 17:39 Dose: 4 units Insulin Human Lispro (Humalog*) 0 units SUBCUT AC [facility], [facility]1983 PRN Reason: Protocol Last Admin: 01/27/17 17:39 Dose: 4 unit Megestrol Acetate (Megace Susp*) 40 mg PO DAILY FOR[facility], [facility] Last Admin: 01/27/17 09:01 Dose: 40 mg Naproxen (Naprosyn Tab*) 250 mg PO Q8H PRN PRN Reason: PAIN Oxybutynin Chloride (Ditropan Xl Tab*) 5 mg PO DAILY FOR[facility], [facility] Last Admin: 01/27/17 09:05 Dose: 5 mg Potassium Chloride (Klor Con Er Tab*) 20 meq PO DAILY WITH MEAL FOR[facility], [facility] Last Admin: 01/27/17 08:55 Dose: 20 meq Prednisone (Deltasone Tab*) 3 mg PO DAILY [facility] Last Admin: 01/27/17 08:55 Dose: 3 mg Propranolol HCl (Inderal Tab*) 20 mg PO BID [facility] Last Admin: 01/27/17 22:34 Dose: 20 mg Home Medications: Home Medications Medication Instructions Recorded Confirmed Type Propranolol TAB* [Inderal TAB*] 20 mg PO BID 09/26/12 01/25/17 History amLODIPine TAB* [Norvasc 5 mg TAB*] 5 mg PO DAILY 04/03/14 01/25/17 History Qkxawjmang-Qroitotaldrhm-Exjjy 1 tab PO Q4HR PRN MDD 6 tabs 04/23/14 01/25/17 History [Butalbital/Acetaminophen/ 50-325-40 mg] Ergocalciferol [Vitamin D2] 50,000 unit PO WEEKLY 04/23/14 01/25/17 History Oyster Shell [Oyster Shell Calcium] 500 mg PO BID 04/23/14 01/25/17 History predniSONE TAB* [Deltasone TAB*] 3 mg PO DAILY 04/23/14 01/25/17 History Insulin Lispro [Humalog Kwikpen] 2 unit SUBCUT BID 01/25/17 01/25/17 History Megestrol SUSP* [Megace SUSP*] 40 mg PO DAILY 01/25/17 01/25/17 History Naproxen [Naproxen 500 mg] 500 mg PO BID PRN 01/25/17 01/25/17 History Oxybutynin XL TAB* [Ditropan Xl 5 mg PO DAILY 01/25/17 01/25/17 History TAB*] Potassium Chlor TAB* [Klor Con ER 20 meq PO DAILY WITH MEAL 01/25/17 01/25/17 History TAB*] Allergies: Allergies Allergy/AdvReac Type Severity Reaction Status Date / Time Aspirin Allergy Intermediate Bleeding Verified 01/25/17 19:44 Hydroxychloroquine Allergy Intermediate Rash Verified 01/25/17 19:44 Latex Allergy Mild Rash Verified 01/25/17 19:44 Amitriptyline Allergy Unknown Unknown Verified 01/25/17 19:44 Reaction Details Penicillins Allergy Unknown Unknown Verified 01/25/17 19:44 Reaction Details Objective - Vital Signs Vital Signs: Vital Signs 01/27/17 01/27/17 01/27/17 15:12 15:15 19:33 Temperature 98.7 F 97.7 F Pulse Rate 65 91 Respiratory 18 18 Rate Blood Pressure 143/77 138/84 (mmHg) O2 Sat by Pulse 97 84 Oximetry 01/27/17 01/27/17 01/28/17 22:35 23:35 01:52 Temperature 98.4 F Pulse Rate 62 Respiratory 16 20 Rate Blood Pressure 150/79 (mmHg) O2 Sat by Pulse 92 96 Oximetry 01/28/17 01/28/17 01/28/17 03:41 07:24 07:33 Temperature 98.4 F 98.8 F Pulse Rate 78 72 Respiratory 20 16 16 Rate Blood Pressure 148/79 150/89 (mmHg) O2 Sat by Pulse 95 98 Oximetry - Intake and Output Intake and Output: Intake & Output 01/25/17 01/26/17 01/27/17 01/28/17 11:59 11:59 11:59 11:59 Intake Total 1550 1080 Output Total 0 Balance 1550 1080 Weight 86 lb Intake: Oral 1550 1080 Output: Urine 0 Other: Estimated Void Large Large # Bowel Movements 0 0 # Voids 1 1 ADLs: Meal Record Start: 01/25/17 19: 13 Freq: DAILY@0900,1400,1800 Status: Active Document 01/26/17 09:00 [id number] (Rec: 01/26/17 13:53 [id number] MED-C11) Document 01/26/17 13:53 [id number] (Rec: 01/26/17 13:53 [id number] MED-C11) Document 01/26/17 18:00 [id number] (Rec: 01/26/17 19:06 [id number] MED-C11) Document 01/27/17 09:00 [id number] (Rec: 01/27/17 10:28 [id number] MED-C09) Document 01/27/17 13:58 [id number] (Rec: 01/27/17 14:03 [id number] MED-C09) Document 01/27/17 18:00 [id number] (Rec: 01/27/17 20:16 [id number] MED-C11) ADLs: Meal Record Start: 01/26/17 15: 52 Freq: DAILY@0900,1400,1800 Status: Inactive Created 01/26/17 15:52 [id number] (Rec: 01/26/17 15:52 [id number] MED-M06) Intake and Output Start: 01/25/17 19: 13 Freq: DAILY@0600,1400,2200 Status: Active Document 01/26/17 03:49 [id number] (Rec: 01/26/17 03:49 [id number] MEDL-C01) Document 01/26/17 14:00 [id number] (Rec: 01/26/17 14:58 [id number] MED-C11) Document 01/26/17 22:00 [id number] (Rec: 01/26/17 22:10 [id number] MED-C11) Document 01/26/17 23:49 [id number] (Rec: 01/26/17 23:49 [id number] MEDL-C01) Document 01/27/17 06:00 [id number] (Rec: 01/27/17 06:42 [id number] MED-C09) Document 01/27/17 13:58 [id number] (Rec: 01/27/17 14:03 [id number] MED-C09) Document 01/27/17 16:33 [id number] (Rec: 01/27/17 16:33 [id number] MED-C11) Document 01/27/17 22:00 [id number] (Rec: 01/27/17 22:39 GLH6109 MED-C09) Document 01/28/17 03:44 [id number] (Rec: 01/28/17 03:45 [id number] MED-C42) Document 01/28/17 06:00 [id number] (Rec: 01/28/17 06:08 [id number] MED-C42) Intake and Output Start: 01/26/17 15: 52 Freq: DAILY@0600,1400,2200 Status: Inactive Created 01/26/17 15:52 [id number] (Rec: 01/26/17 15:52 [id number] MED-M06) - Physical Exam General: No Cyanosis, No Anemia, No Jaundice, No Clubbing Lungs and Chest: Yes: Chest Expansion Full, Chest Expansion Symetrica, Percussion Note Resonant, Vessicular Breath Sounds, Crackles - basal dry crackles. No: Wheezes, Respiratory Distress Heart Rate and Rhythm: Regular JVP: Not Elevated Additional Cardiovascular: Yes: Normal Heart Sounds. No: Heart Murmur, Pedal Edema Abdominal Exam: Yes: Soft, Bowel Sounds Present. No: Distention, Abdominal Mass , Abdominal Tenderness Results - Results Lab Results: Laboratory Results - last 24 hr 01/27/17 01/27/17 01/27/17 12:20 13:30 16:58 POC Glucose (mg/dL) 109 H 327 H Prealbumin 12 L 01/27/17 01/28/17 22:21 07:25 POC Glucose (mg/dL) 290 H 306 H Prealbumin Radiology Results: Patient Name: ADEOLA MAURICIO Medical Record#: [id number] Ordering Physician: Katrin Hernandez MD Acct.#: [id number] : 1935 Age: 81 Sex: F Location: [address] [place] [address] - MEDICAL Exam Date: 01/27/17 1038 ADM Status: ADM IN Order Information: CT CHEST/ABD/ PEL W/O Accession Number: [id number] CPT: 13557 INDICATION: Weight loss. Cough. COMPARISON: CT chest/abdomen/pelvis December 14, 2016 TECHNIQUE: Axial source images were obtained from the thoracic inlet to the symphysis pubis. Intravenous contrast was not given due to lack of IV access. The patient was not able to drink an adequate amount of oral contrast Coronal and sagittal reconstructed images were acquired. CHEST FINDINGS: Neck/thyroid: No gross mass of the visualized neck. Chest wall: There are no acute abnormalities of the bony thorax or chest wall. There is no supraclavicular, infraclavicular, or axillary lymphadenopathy. Lungs : Extensive emphysema with basilar interstitial fibrosis. No definitive nodules. Cardiomediastinal structures: The heart is normal in size. There is no pericardial effusion. There is no evidence of aortic aneurysm or dissection. There are aortic intimal calcifications The pulmonary vessels appear normal. There is no mediastinal or hilar adenopathy. The esophagus appears normal. Pleura : There are no pleural-based masses or effusions. ABDOMINAL/PELVIC FINDINGS: Liver: No focal hepatic findings on noncontrast imaging. Gallbladder: No calcified gallstones. Spleen: No mass on noncontrast imaging. Pancreas: Evaluation of pancreas is very limited due to technical factors includes the lack of adjacent oral contrast opacification, a posterior fat planes, and no intravenous contrast. Adrenal glands: No adrenal mass is appreciated. Kidneys: No mass on noncontrast evaluation. No hydronephrosis or nephrolithiasis. Adenopathy: No gross adenopathy. Moderate limitations due to technical factors. Fluid collections: There are no free or localized fluid collections. Vessels:There are advanced atherosclerotic changes of the aorta. There is no focal aneurysm. The IVC is unremarkable GI tract: Limited oral contrast opacification. No obstruction. Moderate retained stool. Possible mucosal thickening of the gastric mucosa. Consider upper endoscopy. Pelvic organs: Not adequately evaluated due to beam hardening artifact from right hip arthroplasty and postoperative changes left hip. Note is made of calcified uterine 1 of 2 [facility] Patient Name:ADEOLA MAURICIO MR: [id number] : 1935 leiomyomas. Bladder: Not adequately evaluated due to beam hardening artifact from hip surgeries. Abdominal and pelvic soft tissues: Small amount of subcutaneous edema. Osseous structures: There are no acute osseous findings. There is right hip arthroplasty and there is a [place]campo screw in the left hip. IMPRESSION: 1. Limited study due to a paucity of fat planes, lack of intravenous contrast, and scant oral contrast. 2. Advanced emphysematous change with basilar interstitial fibrosis 3. Possible gastric mucosal thickening. Consider upper endoscopy. 4. Advanced atherosclerotic changes. 5. Right hip arthroplasty. [place] screw left hip <Electronically signed by Damian Lewis MD in [place]> 01/27/17 1645 Dictated By: Damian Lewis MD Dictated Date/Time: 01/27/17 1645 Transcribed Date/Time: 01/27/17 1633 Copy to: CC:Toni Bates MD; Jerry Arevalo MD; Katrin Hernandez MD; Lupe Hubbard MD Imaging - [facility] Imaging - [facility] Imaging - [facility] [address] [address] [place] [address] [place] [address] ph ([phone]) ph ([phone]) ph ([phone]) Patient Name: ADEOLA MAURICIO Medical Record#: [id number] Ordering Physician: Toni Bates MD Acct.#: [id number] : 1935 Age: 81 Sex: F Location: [address] [place] [address] Exam Date: 01/27/17845 ADM Status: ADM IN Order Information: MRI BRAIN W/O Accession Number: [id number] CPT: 16358 Indication: Fell and hit head a few days ago. Generalized weakness. Failure to thrive. Comparison: January 25, 2017 CT brain. April 25, 2014 MRI brain. Technique: Ombitrona 1.5 Erin [id number] with GEM suite. MRI brain without contrast. Report: Diffusion series is negative for acute or subacute ischemia. On the susceptibility series there are small foci of artifact consistent with hemosiderin deposition including at the LEFT inferior cerebellar hemisphere and the RIGHT cerebral hemisphere including the parietal lobe white matter, thalamus, and basal ganglia. The supratentorial foci of hemosiderin deposition are new compared with the 2013 exam. Moderate prominence of the cerebral sulci and mild prominence of the cerebellar fissures reflecting atrophy. Proportional enlargement of the ventricles. Chronic finding of extensive symmetric increased signal in the periventricular and subcortical white matter of the cerebral hemispheres most consistent with chronic small vessel ischemic disease. Negative for mass effect. No suspicious interval or extra-axial lesion evident. Preserved major intracranial flow-voids. Unremarkable orbital contents. No suspicious calvarial or skull base lesion evident. Clear paranasal sinuses and mastoid air spaces. Unremarkable scalp. IMPRESSION: 1. Involutional change and stigmata of chronic small vessel ischemic disease similar to the 2013 exam. 2. 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 3. No evidence for acute or subacute ischemia. 4. Negative for mass effect. <Electronically signed by Bo Thomas MD in OV> 01/27/17 1241 Dictated By: Bo Thomas MD Dictated Date/Time: 01/27/17 1241 Transcribed Date/Time: 01/27/17 1231 Copy to: CC:Toni Bates MD; Jerry Arevalo MD; Katrin Hernandez MD; Lupe Hubbard MD 1 of 2 Other Results/Reports: Transthoracic echocardiogram Conclusion Moderate concentric left ventricular hypertrophy is observed. The estimated ejection fraction is 60-65%. Abnormal left ventricular diastolic filling is observed, consistent with impaired relaxation. There is septal flattening of the interventricular septum consistent with right ventricular volume or pressure overload, otherwise normal wall motion. The right ventricular global systolic function is mildly to moderately reduced. A linear "shelf" noted in the RA conistant with persistant eustachian valve. I don't appreciate any pathalogical mass/abnormality. There is a trace of aortic regurgitation with calcific aortic valve sclerosis. There is a trace of mitral regurgitation. There is moderate tricuspid regurgitation, medial jet. There is evidence of severe pulmonary hypertension: 69 mmHg. Assessment - Problem List Assessment: Patient Problems Fall (Acute) Hyperglycemia (Acute) Injury of right elbow (Acute) Weight loss (Acute) Chronic obstructive lung disease (Chronic) DVT prophylaxis (Chronic 09/15/14) Essential hypertension (Chronic) Fibrosis of lung (Chronic) Fracture of femoral neck, right (Chronic 09/15/14) Full code status (Chronic 09/15/14) History of fracture of left hip (Chronic) History of right hip hemiarthroplasty (Chronic) Hypercholesteremia (Chronic) Migraine (Chronic) Osteoporosis (Chronic) Rheumatoid arthritis (Chronic) Type 1 diabetes mellitus, uncontrolled (Chronic) Plan: Fall (Acute) I reviewed OT and PT reports - both suggest acute/subacute rehab Type 1 diabetes mellitus, uncontrolled (Chronic)/Hyperglycemia (Acute) Her T1D is not yet under sufficient control - I will continue to edge up her lantus insulin as there is a high risk of significant hypoglycemia. I would prefer to see her glucose levels in the mid 100s, but not lower Injury of right elbow (Acute) This remains sore Weight loss (Acute) This is her main comorbidity at present and it has created muscle wasting and weakness. I spoke with Dr. Katrin Hernandez in person and reviewed her detailed oncology appraisal. Thus far no evidence of occult neoplasm. Her transthoracic echocardiogram shows no right atrial pathology ( suggested in 08/2014 study). Her brain MRI, CT scan chest, abdo and pelvis are negative for malignancy. Chronic obstructive lung disease (Chronic) ongoing DVT prophylaxis (Chronic 09/15/14) Essential hypertension (Chronic) secondary diagnosis Fibrosis of lung (Chronic) secondary diagnosis Fracture of femoral neck, right (Chronic 09/15/14) Full code status (Chronic 09/15/14) History of fracture of left hip (Chronic) History of right hip hemiarthroplasty (Chronic) Hypercholesteremia (Chronic) secondary diagnosis Migraine (Chronic) secondary diagnosis Osteoporosis (Chronic) secondary diagnosis Rheumatoid arthritis (Chronic) secondary diagnosis I am awaiting a psychiatry consultation as the patient appears to have a lack of executive function and is being passive - albeit with reactive protests. She is oriented x 3, but there appears to be a lack of engagement in her situation and no curiosity/insight into her situation. Being unable to state the cause of her weight loss is peculiar - she states at times she is hungry. However, it is unclear if she has just failed to cope independently at home and is in denial, or whether there is a subcortical demential driving the above if we rule out malignant and metabolic factors as being the primary drivers. Her diabetes management certainly has reflected a lack of agency on her part. I think she require rehabilitation - I will ask for a PMRU consultation. Otherwise, she will require subacute rehab at a SNF, I have doubts as to whether with this she will be safe to return home. I discussed the above with her sister Janet.
[2017-01-28] MEDS: Oxybutynin XL TAB* 5 MG PO SCH (09:18)
[2017-01-28] MEDS: predniSONE TAB* 1 MG PO SCH (09:18)
[2017-01-28] MEDS: Butalb/Acetamin/Caff TAB* 1 TAB PO PRN ×2 (09:19→13:24)
[2017-01-28] MEDS: Propranolol TAB* 20 MG PO SCH ×2 (09:19→22:47)
[2017-01-28] MEDS: amLODIPine TAB* 5 MG PO SCH (09:19)
[2017-01-28] MEDS: MEGESTROL 40 MG/ML PO SCH (09:20)
[2017-01-28] MEDS: Insulin GLARGINE(*) 1 UNITS UNIT SUBCUT SCH ×2 (09:23→22:46)
[2017-01-28] MEDS: Insulin LISPRO* 1 UNITS UNIT SUBCUT SCH ×6 (09:24→17:51)
[2017-01-28] MEDS: Potassium Chlor TAB* 10 MEQ TAB.ER PO SCH (09:26)
[2017-01-28 17:18] LABS: Albumin 2.8 g/dL (3.4-4.7); Gamma Globulin 1.9 g/dL (0.6-1.6); Total Protein(PEP) 7.1 g/dL (6.3 - 7.9)
[2017-01-29] MEDS: Heparin VIAL(*) 5000 UNITS/ML VIAL (FIVE THOUSAND) SUBCUT SCH ×3 (06:41→22:24)
--- NOTE | 2017-01-29 08:26 | PN ---
Subjective - Subjective Reason for Note: Progress Note History: She had a headache/migraine yesterday that has resolved. She states she is hungry. The nutritional assessment states she is eating 80% of her meals. I note her FS are high at meal times - but this morning her FS was 184 mg/dl. She denies pain and states her right elbow is recovering. She continues to have little insight into her weight loss or her current situation, although she is oriented on formal questioning and responds appropriately. Active Problems: Active Problems Fall (Acute) Hyperglycemia (Acute) R73.9 Injury of right elbow (Acute) S59.901A Weight loss (Acute) Chronic obstructive lung disease (Chronic) J44.9 DVT prophylaxis (Chronic 09/15/14) [id number] Essential hypertension (Chronic) I10 Fibrosis of lung (Chronic) J84.10 Fracture of femoral neck, right (Chronic 09/15/14) S72.001A Full code status (Chronic 09/15/14) Z78.9 History of fracture of left hip (Chronic) Z87.81 History of right hip hemiarthroplasty (Chronic) Z96.641 Hypercholesteremia (Chronic) E78.0 Migraine (Chronic) G43.909 Osteoporosis (Chronic) M81.0 Rheumatoid arthritis (Chronic) M06.9 Type 1 diabetes mellitus, uncontrolled (Chronic) E10.65 Current Medications: Current Medications Acetaminophen/Butalbital/Caffeine (Fioricet Tab*) 1 tab PO Q4HR PRN PRN Reason: MIGRAINE HEADACHE Last Admin: 01/28/17 13:24 Dose: 1 tab Amlodipine Besylate (Norvasc Tab*) 5 mg PO DAILY [facility] Last Admin: 01/28/17 09:19 Dose: 5 mg Dextrose (D50w Syringe 50 Ml*) 12.5 gm IV PUSH .FOR FS < 60 - SS PRN PRN Reason: FS < 60 Heparin Sodium (Porcine) (Heparin Vial(*)) 5,000 units SUBCUT Q8HR [facility] Last Admin: 01/29/17 06:41 Dose: 5,000 units Insulin Glargine (Lantus(*)) 10 units SUBCUT BID [facility] Last Admin: 01/28/17 22:46 Dose: 10 units Insulin Human Lispro (Humalog*) 0 units SUBCUT AC [facility] PRN Reason: Protocol Last Admin: 01/28/17 16:59 Dose: Not Given Insulin Human Lispro (Humalog*) 0 units SUBCUT AC [facility] PRN Reason: Protocol Last Admin: 01/28/17 17:51 Dose: 4 unit Megestrol Acetate (Megace Susp*) 40 mg PO DAILY [facility] Last Admin: 01/28/17 09:20 Dose: 40 mg Naproxen (Naprosyn Tab*) 250 mg PO Q8H PRN PRN Reason: PAIN Oxybutynin Chloride (Ditropan Xl Tab*) 5 mg PO DAILY [facility] Last Admin: 01/28/17 09:18 Dose: 5 mg Potassium Chloride (Klor Con Er Tab*) 20 meq PO DAILY WITH MEAL [facility] Last Admin: 01/28/17 09:26 Dose: 20 meq Prednisone (Deltasone Tab*) 3 mg PO DAILY [facility] Last Admin: 01/28/17 09:18 Dose: 3 mg Propranolol HCl (Inderal Tab*) 20 mg PO BID [facility] Last Admin: 01/28/17 22:47 Dose: 20 mg Home Medications: Home Medications Medication Instructions Recorded Confirmed Type Propranolol TAB* [Inderal TAB*] 20 mg PO BID 09/26/12 01/25/17 History amLODIPine TAB* [Norvasc 5 mg TAB*] 5 mg PO DAILY 04/03/14 01/25/17 History Nqdccwzjqs-Diccfinaeablf-Cdqgj 1 tab PO Q4HR PRN MDD 6 tabs 04/23/14 01/25/17 History [Butalbital/Acetaminophen/ 50-325-40 mg] Ergocalciferol [Vitamin D2] 50,000 unit PO WEEKLY 04/23/14 01/25/17 History Oyster Shell [Oyster Shell Calcium] 500 mg PO BID 04/23/14 01/25/17 History predniSONE TAB* [Deltasone TAB*] 3 mg PO DAILY 04/23/14 01/25/17 History Insulin Lispro [Humalog Kwikpen] 2 unit SUBCUT BID 01/25/17 01/25/17 History Megestrol SUSP* [Megace SUSP*] 40 mg PO DAILY 01/25/17 01/25/17 History Naproxen [Naproxen 500 mg] 500 mg PO BID PRN 01/25/17 01/25/17 History Oxybutynin XL TAB* [Ditropan Xl 5 mg PO DAILY 01/25/17 01/25/17 History TAB*] Potassium Chlor TAB* [Klor Con ER 20 meq PO DAILY WITH MEAL 01/25/17 01/25/17 History TAB*] Allergies: Allergies Allergy/AdvReac Type Severity Reaction Status Date / Time Aspirin Allergy Intermediate Bleeding Verified 01/25/17 19:44 Hydroxychloroquine Allergy Intermediate Rash Verified 01/25/17 19:44 Latex Allergy Mild Rash Verified 01/25/17 19:44 Amitriptyline Allergy Unknown Unknown Verified 01/25/17 19:44 Reaction Details Penicillins Allergy Unknown Unknown Verified 01/25/17 19:44 Reaction Details Objective - Vital Signs Vital Signs: Vital Signs 01/28/17 01/28/17 01/28/17 09:19 11:19 13:24 Temperature Pulse Rate Respiratory 16 16 16 Rate Blood Pressure (mmHg) O2 Sat by Pulse Oximetry 01/28/17 01/28/17 01/28/17 15:24 16:22 20:00 Temperature 98.4 F Pulse Rate 81 Respiratory 16 22 18 Rate Blood Pressure 123/75 (mmHg) O2 Sat by Pulse 96 Oximetry 01/28/17 01/28/17 01/29/17 20:02 23:23 03:44 Temperature 98.7 F 98.1 F 98.5 F Pulse Rate 75 63 66 Respiratory 23 20 20 Rate Blood Pressure 150/79 147/77 147/100 (mmHg) O2 Sat by Pulse 99 96 99 Oximetry 01/29/17 01/29/17 07:35 07:39 Temperature 98.9 F Pulse Rate 82 Respiratory 22 18 Rate Blood Pressure 135/77 (mmHg) O2 Sat by Pulse 99 Oximetry - Intake and Output Intake and Output: Intake & Output 01/26/17 01/27/17 01/28/17 01/29/17 11:59 11:59 11:59 11:59 Intake Total 1550 1080 1120 Output Total 0 0 Balance 1550 1080 1120 Weight 86 lb Intake: Oral 1550 1080 1120 Output: Urine 0 0 Other: Estimated Void Large Large Medium # Bowel Movements 0 0 0 # Voids 1 1 2 ADLs: Meal Record Start: 01/25/17 19: 13 Freq: DAILY@0900,1400,1800 Status: Active Document 01/26/17 09:00 [id number] (Rec: 01/26/17 13:53 [id number] MED-C11) Document 01/26/17 13:53 [id number] (Rec: 01/26/17 13:53 [id number] MED-C11) Document 01/26/17 18:00 [id number] (Rec: 01/26/17 19:06 [id number] MED-C11) Document 01/27/17 09:00 [id number] (Rec: 01/27/17 10:28 [id number] MED-C09) Document 01/27/17 13:58 [id number] (Rec: 01/27/17 14:03 [id number] MED-C09) Document 01/27/17 18:00 [id number] (Rec: 01/27/17 20:16 [id number] MED-C11) Document 01/28/17 14:00 [id number] (Rec: 01/28/17 14:08 [id number] MED-C09) Document 01/28/17 18:00 [id number] (Rec: 01/28/17 18:07 [id number] MED-M05) ADLs: Meal Record Start: 01/26/17 15: 52 Freq: DAILY@0900,1400,1800 Status: Inactive Created 01/26/17 15:52 [id number] (Rec: 01/26/17 15:52 [id number] MED-M06) Intake and Output Start: 01/25/17 19: 13 Freq: DAILY@0600,1400,2200 Status: Active Document 01/26/17 03:49 [id number] (Rec: 01/26/17 03:49 [id number] MEDL-C01) Document 01/26/17 14:00 [id number] (Rec: 01/26/17 14:58 [id number] MED-C11) Document 01/26/17 22:00 [id number] (Rec: 01/26/17 22:10 [id number] MED-C11) Document 01/26/17 23:49 [id number] (Rec: 01/26/17 23:49 [id number] MEDL-C01) Document 01/27/17 06:00 [id number] (Rec: 01/27/17 06:42 [id number] MED-C09) Document 01/27/17 13:58 [id number] (Rec: 01/27/17 14:03 [id number] MED-C09) Document 01/27/17 16:33 [id number] (Rec: 01/27/17 16:33 [id number] MED-C11) Document 01/27/17 22:00 [id number] (Rec: 01/27/17 22:39 [id number] MED-C09) Document 01/28/17 03:44 [id number] (Rec: 01/28/17 03:45 [id number] MED-C42) Document 01/28/17 06:00 [id number] (Rec: 01/28/17 06:08 [id number] MED-C42) Document 01/28/17 14:00 [id number] (Rec: 01/28/17 14:08 [id number] MED-C09) Document 01/28/17 22:00 [id number] (Rec: 01/28/17 23:07 [id number] MED-C04) Document 01/29/17 06:00 [id number] (Rec: 01/29/17 06:24 [id number] MED-C42) Intake and Output Start: 01/26/17 15: 52 Freq: DAILY@0600,1400,2200 Status: Inactive Created 01/26/17 15:52 [id number] (Rec: 01/26/17 15:52 [id number] MED-M06) - Physical Exam General: No Cyanosis, No Anemia, No Jaundice, No Clubbing Lungs and Chest: Yes: Chest Expansion Full, Chest Expansion Symetrica, Percussion Note Resonant, Vessicular Breath Sounds, Crackles. No: Wheezes Heart Rate and Rhythm: Regular Additional Cardiovascular: Yes: Normal Heart Sounds. No: Heart Murmur, Pedal Edema Abdominal Exam: Yes: Soft, Bowel Sounds Present. No: Abdominal Mass, Abdominal Tenderness Results - Results Lab Results: Laboratory Results - last 24 hr 01/27/17 01/27/17 01/28/17 13:30 13:30 12:24 POC Glucose (mg/dL) 352 H Total Protein (PEP) 7.1 Albumin (PEP) 2.8 L Albumin/Globulin (PEP) 0.64 Jocct-5-Bmezrtgwr 0.3 Pqzvq-0-Ffbgqtxlz 1.1 H Euci-1-Avlckgvw 1.1 Gamma Globulins 1.9 H PEP Impression See comment Hepatitis C Antibody Nonreactive HIV 1&2 Antibody Nonreactive 01/28/17 01/28/1701/29/17 16:51 22:41 07:29 POC Glucose (mg/dL) 144 H 319 H 184 H Total Protein (PEP) Albumin (PEP) Albumin/Globulin (PEP) Mghee-5-Zhjmnwgmr Pgrxb-8-Tdkvcmrqq Zgex-8-Chwfukrk Gamma Globulins PEP Impression Hepatitis C Antibody HIV 1&2 Antibody Assessment - Problem List Assessment: Patient Problems Fall (Acute) Hyperglycemia (Acute) Injury of right elbow (Acute) Weight loss (Acute) Chronic obstructive lung disease (Chronic) DVT prophylaxis (Chronic 09/15/14) Essential hypertension (Chronic) Fibrosis of lung (Chronic) Fracture of femoral neck, right (Chronic 09/15/14) Full code status (Chronic 09/15/14) History of fracture of left hip (Chronic) History of right hip hemiarthroplasty (Chronic) Hypercholesteremia (Chronic) Migraine (Chronic) Osteoporosis (Chronic) Rheumatoid arthritis (Chronic) Type 1 diabetes mellitus, uncontrolled (Chronic) Plan: Fall (Acute) Type 1 diabetes mellitus, uncontrolled (Chronic)Hyperglycemia (Acute) She has labile glycemic control at the best of times. I am trying to avoid hypoglycemia but too rapid correction. Her fasting glucose this morning is closer to target at 184 mg/dl. Each other morning it has been > 300 mg/dl. I will increase this to 12 units twice daily. I will adjust her prandial insulin to 12 units bid. I will increase her sensitivity factor/correction bolus first , prior to increasing her ins:carb ratio. Injury of right elbow (Acute) Recovering Weight loss (Acute) This remains a puzzle. I think that oncological causes are less likely. Metabolic concerns are important (uncontrolled T1D), however are insufficient to explain this. The steroid dose also doesn't full explain this weight loss - it should also stimulate appetite. I want to have a psychogeriatric consultation to rule out either a subcortical dementing process (I think she has a loss of executive function), or a vegetative depression. I requested this consult 2 days ago. I will directly call the psychiatrist. She may benefit from mirtazapine (both as an antidepressant and an appetite stimulant). Chronic obstructive lung disease (Chronic) She doesn't wear her O2 at home DVT prophylaxis (Chronic 09/15/14) Essential hypertension (Chronic) on target - continue current Rx Fibrosis of lung (Chronic) secondary diagnosis Fracture of femoral neck, right (Chronic 09/15/14) Full code status (Chronic 09/15/14) History of fracture of left hip (Chronic) History of right hip hemiarthroplasty (Chronic) Hypercholesteremia (Chronic) secondary diagnosis Migraine (Chronic) She had a headache y'day Osteoporosis (Chronic) secondary diagnosis Rheumatoid arthritis (Chronic) secondary diagnosis I spoke both with the patient and her sister Janet. I explained we have not completed the evaluation for weight loss, nor obtained reasonable control of her diabetes yet. She has been turned down by [facility] - or at least her insurances has declined acute inpatient rehab. I will decide tomorrow on the basis of the psychiatric consultation about a safe discharge plan.
[2017-01-29] MEDS: Oxybutynin XL TAB* 5 MG PO SCH (09:35)
[2017-01-29] MEDS: Propranolol TAB* 20 MG PO SCH ×2 (09:35→22:24)
[2017-01-29] MEDS: predniSONE TAB* 1 MG PO SCH (09:35)
[2017-01-29] MEDS: MEGESTROL 40 MG/ML PO SCH (09:36)
[2017-01-29] MEDS: Potassium Chlor TAB* 10 MEQ TAB.ER PO SCH (09:36)
[2017-01-29] MEDS: amLODIPine TAB* 5 MG PO SCH (09:36)
[2017-01-29] MEDS: Insulin GLARGINE(*) 1 UNITS UNIT SUBCUT SCH ×2 (09:38→22:22)
[2017-01-29] MEDS: Insulin LISPRO* 1 UNITS UNIT SUBCUT SCH ×8 (09:38→18:00)
[2017-01-29] MEDS: Butalb/Acetamin/Caff TAB* 1 TAB PO PRN (09:42)
[2017-01-29] MEDS ORDERED: Insulin LISPRO* 1 UNITS UNIT SUBCUT ONE ×2 (22:08→22:17)
--- NOTE | 2017-01-30 00:56 | CONS ---
CONSULTATION REPORT: DATE OF ADMISSION: 01/25/17 DATE OF CONSULT/DICTATION: 01/29/17 ATTENDING PHYSICIAN: Dr. Toni Bates CONSULTING PHYSICIAN: Dr. Jerry Arevalo REASON FOR CONSULT: Question of depression, capacity to make informed medical decisions and potential for neurocognitive disorder. SUBJECTIVE HISTORY: Psychiatry is asked to see this charming 81-year-old -[place] female with no prior psychiatric illness, who was admitted to the medical service following a fall in her home, who also presents with comorbid high blood glucose and mysterious recent 20-pound weight loss of unknown origin. This clinician has been unable to reach Dr. Bates to clarify the consult question, but it is my understanding through intermediate contact that the primary team is concerned that the patient may have some type of undiagnosed major depressive disorder, which could be contributing to her lack of appetite. Further concern of the primary team is whether she has the capacity to make informed medical decisions such as the decision to choose or decline placement in a penitentiary facility. Further consideration would be whether the patient meets criteria for neurocognitive disorder. Regarding the question of depression, the patient is asked to describe her mood. She is open with this observer that she feels slightly irritable and informs me that the reason for her being so is that I have turned down volume on her television program and interrupted her dinner. I offer to come back at a later time, but she declines this, inviting me to sit down, and is mostly cooperative from that point on. She denies depressed mood and when I asked her about specific major depressive symptoms, she denies most of these as well including difficulty sleeping, anhedonia, guilt, lethargy, concentration problems, or psychomotor retardation. She does admit that her appetite prior to coming to the hospital was problematic, although she indicates that both her son and Dr. Bates are perhaps overly concerned with this. She does tell me that the medication she is receiving on the inpatient service has appeared to increase her appetite. The patient is cooperative with the administration of a Folstein's Mini-Mental State Exam, which she completes without difficulty. She demonstrates fairly good recall as well as remote memory, talking about various politicians and famous historical persons from recent and remote [place] history. I also broached the topic of her safety at home, she does acknowledge that there is a risk for further falls. She indicates that she would not only be willing, but would actually welcome a home health aide and she feels that placement in a penitentiary facility would not be in her best interest. PAST PSYCHIATRIC HISTORY: Largely noncontributory. The patient denies any past treatment for mental illness. She has never been on psychiatric medication nor been psychiatrically hospitalized. She denies any prior history of suicide attempts, violence, or traumatic brain injury. PAST SUBSTANCE ABUSE HISTORY: The patient denies being a smoker or abusing alcohol or illicit drugs. She has a 65-zhox-bpxh smoking history, but has since quit. MEDICAL HISTORY: Significant for insulin-dependent diabetes, history of benign breast mass resection, history of rheumatoid arthritis, history of COPD, pulmonary fibrosis, hypertension, history of fracture of left hip, hypercholesterolemia, history of migraines. MEDICATIONS AT HOME: Prior to admission include: 1. Lantus insulin 6 units b.i.d. and insulin lispro with sliding scale with meals. 2. Ditropan 5 mg daily. 3. Propranolol 20 mg p.o. b.i.d. 4. Vitamin D2 50,000 units weekly. 5. Oyster shell calcium 500 mg p.o. b.i.d. 6. Fioricet 1 tablet every 4 hours as a p.r.n. for migraine headache. 7. Megace 40 mg p.o. q. daily. 8. Prednisone 3 mg p.o. q. daily. 9. Amlodipine 5 mg p.o. q. daily. 10. Potassium chloride 20 mEq p.o. q. daily. 11. Naproxen 500 mg p.o. b.i.d. as a p.r.n. for pain. ALLERGIES: Include ASPIRIN, HYDROXYCHLOROQUINE, LATEX, AMITRIPTYLINE, and PENICILLIN. FAMILY HISTORY: Noncontributory for suicides or mental illness. SOCIAL HISTORY: The patient was born and raised here in [place]. She has 1 son , who splits time between [place] and [facility]. She has no grandchildren. She has been twice with both of her husbands . She used to work as a chemical processing supervisor having gone to [employer] at [employer]. She owns her own home and lives alone here in the city of [place]. She enjoys reading and talking with friends during her free time. MENTAL STATUS EXAM: The patient is a petite, undernourished -[place] female, sitting in her chair, eating ice cream and watching the evening news. She is clean and well groomed in a patient gown and she is wearing a bandana around her greying hair. She is calm and cooperative, although somewhat irritable at first. She does establish a rapport with this clinician, inviting me to sit down and making good eye contact. Speech has a normal rate, tone, and volume. Mood appears to be mildly irritable with an otherwise full affect. Thought process is linear and goal directed. Thought content is significant for her desire to be discharged from the hospital to return to her home. She denies suicidal or homicidal ideation. She denies auditory or visual hallucinations. Insight and judgment appear to be intact given her willingness to receive care here in the hospital and her willingness to follow up with treatments as an outpatient. Cognitively, she is awake and alert with what would appear to be a slightly high average intellect by virtue of her vocabulary. 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 Erwinna II: Deferred. ASSESSMENT: Ms. Palacios is a 81-year-old -[place] female with no prior psychiatric history, who was admitted to the hospital following a fall in her own home with comorbid poorly controlled diabetes as well as unexplained weight loss of at least 20 pounds. We have been asked to evaluate first of all whether she meets criteria for a major depressive illness, which she certainly does not at this time. I do see some evidence of irritability, but this may be secondary to issues of pain from her arthritis as well as being in the hospital environment when she clearly would prefer to be at home. I do not think any treatment for depression is warranted at this time. Regarding the issue of dementia, the patient scores 27/30 points on a mini-mental state exam, only losing 1 point for recall and 2 points for attention. This cognitive profile certainly does not justify a diagnosis of a neurocognitive disorder, this leads me to a third question, which pertains to her capacity to make informed medical decisions. She demonstrates a clear understanding of the treatments that Dr. Bates is suggesting and offers her own reasons for declining them. She is cognitively intact and I do believe that she has capacity at this time to make informed decisions for herself. RECOMMENDATIONS TO PRIMARY TEAM: Psychiatry feels that there would be limited justification for the initiation of antidepressant therapy at this time. The patient does have capacity to make informed medical choices and we would not support any involuntary referral to penitentiary care at this time. She is agreeable with home health services and would likely benefit from this. Thank you for allowing us to participate in the care of this very interesting and delightful patient. Psychiatry is signing off, but we can be reached at the [facility] at extension [phone] should any further questions come up in the care of this patient. [id number]/CPS #: [id number] FLORINDA
[2017-01-30 04:08] LABS: Hematocrit 50 % (35-47); Hemoglobin 16.6 g/dl (12.0-16.0); Mean Corpuscular HGB Conc 33 g/dl (31-36); Mean Corpuscular Hemoglobin 30 pg (27-31); Mean Corpuscular Volume 89 fL (80-97); Mean Platelet Volume 8 um3 (7.4-10.4); Red Cell Distribution Width 14 % (10.5-15); White Blood Count 16.8 10^3/ul (3.5-10.8)
[2017-01-30 04:23] LABS: Anion Gap 9 mmol/L (2-11); BUN/Creatinine Ratio 14.7 (8-20); Blood Urea Nitrogen 14 mg/dL (6-24); C Reactive Protein < 1.00 mg/L (< 5.00); CO2 Carbon Dioxide 23 mmol/L (22-32); Calcium 9.1 mg/dL (8.6-10.3); Chloride 104 mmol/L (101-111); EGFR Non-African American 56.7 (>60); Glucose 106 mg/dL (70-100); Sodium 136 mmol/L (133-145)
[2017-01-30] MEDS: Heparin VIAL(*) 5000 UNITS/ML VIAL (FIVE THOUSAND) SUBCUT SCH ×3 (06:22→21:26)
[2017-01-30] MEDS: Insulin LISPRO* 1 UNITS UNIT SUBCUT SCH ×6 (08:21→17:56)
--- NOTE | 2017-01-30 09:09 | PN ---
Subjective - Subjective Reason for Note: Progress Note History: She had a cough last night, but this morning it is not apparent. She has no fevers or sweats. Her appetite is unchanged. There are no new symptoms and she is not aware of any pain. She continues to have labile glycemic control - hyperglycemia last night and low normal glucose this morning. Active Problems: Active Problems Fall (Acute) Hyperglycemia (Acute) R73.9 Injury of right elbow (Acute) S59.901A Weight loss (Acute) Chronic obstructive lung disease (Chronic) J44.9 DVT prophylaxis (Chronic 09/15/14) [id number] Essential hypertension (Chronic) I10 Fibrosis of lung (Chronic) J84.10 Fracture of femoral neck, right (Chronic 09/15/14) S72.001A Full code status (Chronic 09/15/14) Z78.9 History of fracture of left hip (Chronic) Z87.81 History of right hip hemiarthroplasty (Chronic) Z96.641 Hypercholesteremia (Chronic) E78.0 Migraine (Chronic) G43.909 Osteoporosis (Chronic) M81.0 Rheumatoid arthritis (Chronic) M06.9 Type 1 diabetes mellitus, uncontrolled (Chronic) E10.65 Current Medications: Current Medications Acetaminophen/Butalbital/Caffeine (Fioricet Tab*) 1 tab PO Q4HR PRN PRN Reason: MIGRAINE HEADACHE Last Admin: 01/29/17 09:42 Dose: 1 tab Amlodipine Besylate (Norvasc Tab*) 5 mg PO DAILY [facility] Last Admin: 01/29/17 09:36 Dose: 5 mg Dextrose (D50w Syringe 50 Ml*) 12.5 gm IV PUSH .FOR FS < 60 - SS PRN PRN Reason: FS < 60 Heparin Sodium (Porcine) (Heparin Vial(*)) 5,000 units SUBCUT Q8HR [facility] Last Admin: 01/30/17 06:22 Dose: 5,000 units Insulin Glargine (Lantus(*)) 12 units SUBCUT BID [facility] Last Admin: 01/29/17 22:22 Dose: 12 units Insulin Human Lispro (Humalog*) 0 units SUBCUT AC [facility] PRN Reason: Protocol Last Admin: 01/30/17 08:51 Dose: Not Given Insulin Human Lispro (Humalog*) 1 units SUBCUT AC [facility] PRN Reason: Protocol Last Admin: 01/30/17 08:21 Dose: Not Given Megestrol Acetate (Megace Susp*) 40 mg PO DAILY [facility] Last Admin: 01/29/17 09:36 Dose: 40 mg Naproxen (Naprosyn Tab*) 250 mg PO Q8H PRN PRN Reason: PAIN Oxybutynin Chloride (Ditropan Xl Tab*) 5 mg PO DAILY [facility] Last Admin: 01/29/17 09:35 Dose: 5 mg Potassium Chloride (Klor Con Er Tab*) 20 meq PO DAILY WITH MEAL [facility] Last Admin: 01/29/17 09:36 Dose: 20 meq Prednisone (Deltasone Tab*) 3 mg PO DAILY [facility] Last Admin: 01/29/17 09:35 Dose: 3 mg Propranolol HCl (Inderal Tab*) 20 mg PO BID [facility] Last Admin: 01/29/17 22:24 Dose: 20 mg Home Medications: Home Medications Medication Instructions Recorded Confirmed Type Propranolol TAB* [Inderal TAB*] 20 mg PO BID 09/26/12 01/25/17 History amLODIPine TAB* [Norvasc 5 mg TAB*] 5 mg PO DAILY 04/03/14 01/25/17 History Nvnvkwbmcn-Jdkfcxpvjmizd-Xkvta 1 tab PO Q4HR PRN MDD 6 tabs 04/23/14 01/25/17 History [Butalbital/Acetaminophen/ 50-325-40 mg] Ergocalciferol [Vitamin D2] 50,000 unit PO WEEKLY 04/23/14 01/25/17 History Oyster Shell [Oyster Shell Calcium] 500 mg PO BID 04/23/14 01/25/17 History predniSONE TAB* [Deltasone TAB*] 3 mg PO DAILY 04/23/14 01/25/17 History Insulin Lispro [Humalog Kwikpen] 2 unit SUBCUT BID 01/25/17 01/25/17 History Megestrol SUSP* [Megace SUSP*] 40 mg PO DAILY 01/25/17 01/25/17 History Naproxen [Naproxen 500 mg] 500 mg PO BID PRN 01/25/17 01/25/17 History Oxybutynin XL TAB* [Ditropan Xl 5 mg PO DAILY 01/25/17 01/25/17 History TAB*] Potassium Chlor TAB* [Klor Con ER 20 meq PO DAILY WITH MEAL 01/25/17 01/25/17 History TAB*] Allergies: Allergies Allergy/AdvReac Type Severity Reaction Status Date / Time Aspirin Allergy Intermediate Bleeding Verified 01/25/17 19:44 Hydroxychloroquine Allergy Intermediate Rash Verified 01/25/17 19:44 Latex Allergy Mild Rash Verified 01/25/17 19:44 Amitriptyline Allergy Unknown Unknown Verified 01/25/17 19:44 Reaction Details Penicillins Allergy Unknown Unknown Verified 01/25/17 19:44 Reaction Details Objective - Vital Signs Vital Signs: Vital Signs 01/29/17 01/29/17 01/29/17 09:42 11:42 15:34 Temperature 98.1 F Pulse Rate 97 Respiratory 16 16 25 Rate Blood Pressure 105/78 (mmHg) O2 Sat by Pulse 95 Oximetry 01/29/17 01/29/17 01/29/17 20:00 20:03 23:26 Temperature 98.4 F 99.1 F Pulse Rate 79 83 Respiratory 16 23 24 Rate Blood Pressure 141/78 119/77 (mmHg) O2 Sat by Pulse 95 97 Oximetry 01/30/17 03:48 Temperature Pulse Rate 78 Respiratory 20 Rate Blood Pressure 141/75 (mmHg) O2 Sat by Pulse 89 Oximetry - Intake and Output Intake and Output: Intake & Output 01/27/17 01/28/17 01/29/17 01/30/17 11:59 11:59 11:59 11:59 Intake Total 1550 1080 1240 1540 Output Total 0 0 0 Balance 1550 1080 1240 1540 Weight 86 lb 95 lb 12.8 oz Intake: Oral 1550 1080 1240 1540 Output: Urine 0 0 0 Other: Estimated Void Large Large Medium Large # Bowel Movements 0 0 0 0 # Voids 1 1 2 1 ADLs: Meal Record Start: 01/25/17 19: 13 Freq: DAILY@0900,1400,1800 Status: Active Document 01/26/17 09:00 [id number] (Rec: 01/26/17 13:53 [id number] MED-C11) Document 01/26/17 13:53 [id number] (Rec: 01/26/17 13:53 [id number] MED-C11) Document 01/26/17 18:00 [id number] (Rec: 01/26/17 19:06 [id number] MED-C11) Document 01/27/17 09:00 [id number] (Rec: 01/27/17 10:28 [id number] MED-C09) Document 01/27/17 13:58 [id number] (Rec: 01/27/17 14:03 [id number] MED-C09) Document 01/27/17 18:00 [id number] (Rec: 01/27/17 20:16 [id number] MED-C11) Document 01/28/17 14:00 [id number] (Rec: 01/28/17 14:08 [id number] MED-C09) Document 01/28/17 18:00 [id number] (Rec: 01/28/17 18:07 [id number] MED-M05) Document 01/29/17 09:00 [id number] (Rec: 01/29/17 09:43 [id number] MED-C09) Document 01/29/17 13:32 [id number] (Rec: 01/29/17 13:33 [id number] MED-C09) Document 01/29/17 18:00 [id number] (Rec: 01/29/17 22:28 [id number] MED-C04) ADLs: Meal Record Start: 01/26/17 15: 52 Freq: DAILY@0900,1400,1800 Status: Inactive Created 01/26/17 15:52 [id number] (Rec: 01/26/17 15:52 [id number] MED-M06) Intake and Output Start: 01/25/17 19: 13 Freq: DAILY@0600,1400,2200 Status: Active Document 01/26/17 03:49 [id number] (Rec: 01/26/17 03:49 [id number] MEDL-C01) Document 01/26/17 14:00 [id number] (Rec: 01/26/17 14:58 [id number] MED-C11) Document 01/26/17 22:00 [id number] (Rec: 01/26/17 22:10 [id number] MED-C11) Document 01/26/17 23:49 [id number] (Rec: 01/26/17 23:49 [id number] MEDL-C01) Document 01/27/17 06:00 [id number] (Rec: 01/27/17 06:42 [id number] MED-C09) Document 01/27/17 13:58 [id number] (Rec: 01/27/17 14:03 [id number] MED-C09) Document 01/27/17 16:33 [id number] (Rec: 01/27/17 16:33 [id number] MED-C11) Document 01/27/17 22:00 [id number] (Rec: 01/27/17 22:39 [id number] MED-C09) Document 01/28/17 03:44 [id number] (Rec: 01/28/17 03:45 [id number] MED-C42) Document 01/28/17 06:00 [id number] (Rec: 01/28/17 06:08 [id number] MED-C42) Document 01/28/17 14:00 [id number] (Rec: 01/28/17 14:08 [id number] MED-C09) Document 01/28/17 22:00 [id number] (Rec: 01/28/17 23:07 [id number] MED-C04) Document 01/29/17 06:00 [id number] (Rec: 01/29/17 06:24 [id number] MED-C42) Document 01/29/17 13:32 [id number] (Rec: 01/29/17 13:33 [id number] MED-C09) Document 01/29/17 22:00 [id number] (Rec: 01/29/17 22:29 [id number] MED-C04) Document 01/30/17 06:00 [id number] (Rec: 01/30/17 06:33 [id number] MED-C42) Intake and Output Start: 01/26/17 15: 52 Freq: DAILY@0600,1400,2200 Status: Inactive Created 01/26/17 15:52 [id number] (Rec: 01/26/17 15:52 [id number] MED-M06) - Physical Exam General: No Cyanosis, No Anemia, No Jaundice, No Clubbing Lungs and Chest: Yes: Chest Expansion Full, Chest Expansion Symetrica, Percussion Note Resonant, Vessicular Breath Sounds, Crackles - especially left base - chronic crackles. No: Wheezes, Respiratory Distress Heart Rate and Rhythm: Regular JVP: Not Elevated Additional Cardiovascular: Yes: Normal Heart Sounds. No: Heart Murmur, Pedal Edema Abdominal Exam: Yes: Soft, Bowel Sounds Present. No: Distention, Abdominal Mass , Abdominal Tenderness Results - Results Lab Results: Laboratory Results - last 24 hr 01/29/17 01/29/17 01/29/17 11:58 16:48 22:00 WBC RBC Hgb Hct MCV MCH MCHC RDW Plt Count MPV Neut % (Auto) Lymph % (Auto) [place] % (Auto) Eos % (Auto) Baso % (Auto) Absolute Neuts (auto) Absolute Lymphs (auto) Absolute Monos (auto) Absolute Eos (auto) Absolute Basos (auto) Absolute Nucleated RBC Nucleated RBC % Sodium Potassium Chloride Carbon Dioxide Anion Gap BUN Creatinine Est GFR ( Amer) Est GFR (Non-Af Amer) BUN/Creatinine Ratio Glucose POC Glucose (mg/dL) 118 H 167 H 321 H Calcium C-Reactive Protein 01/30/17 01/30/17 01/30/17 03:50 03:50 07:54 WBC 16.8 H RBC 5.60 H Hgb 16.6 H Hct 50 H MCV 89 MCH 30 MCHC 33 RDW 14 Plt Count 224 MPV 8 Neut % (Auto) 81.9 Lymph % (Auto) 12.2 L [place] % (Auto) 4.9 Eos % (Auto) 0.4 Baso % (Auto) 0.6 Absolute Neuts (auto) 13.8 H Absolute Lymphs (auto) 2.0 Absolute Monos (auto) 0.8 Absolute Eos (auto) 0.1 Absolute Basos (auto) 0.1 Absolute Nucleated RBC 0.01 Nucleated RBC % 0 Sodium 136 Potassium 4.0 Chloride 104 Carbon Dioxide 23 Anion Gap 9 BUN 14 Creatinine 0.95 Est GFR ( Amer) 73.0 Est GFR (Non-Af Amer) 56.7 BUN/Creatinine Ratio 14.7 Glucose 106 H POC Glucose (mg/dL) 72 Calcium 9.1 C-Reactive Protein < 1.00 Assessment - Problem List Assessment: Patient Problems Fall (Acute) Hyperglycemia (Acute) Injury of right elbow (Acute) Weight loss (Acute) Chronic obstructive lung disease (Chronic) DVT prophylaxis (Chronic 09/15/14) Essential hypertension (Chronic) Fibrosis of lung (Chronic) Fracture of femoral neck, right (Chronic 09/15/14) Full code status (Chronic 09/15/14) History of fracture of left hip (Chronic) History of right hip hemiarthroplasty (Chronic) Hypercholesteremia (Chronic) Migraine (Chronic) Osteoporosis (Chronic) Rheumatoid arthritis (Chronic) Type 1 diabetes mellitus, uncontrolled (Chronic) Plan: Fall (Acute)Injury of right elbow (Acute)Weight loss (Acute) She had failure to thrive at home. She is doing better in the hospital. I appreciate Dr. Arevalo's consultation - no significant dementia, depression and she has full capacity. Hence, he has not identified any psychiatric cause of her failing to thrive. 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 She agrees to 2 weeks of subacute rehabilitation at a SNF. After that, I have suggested meals on wheels/[employer] Hyperglycemia (Acute) Type 1 diabetes mellitus, uncontrolled (Chronic) she continues to have hyperglycemia post prandially. However, her FS this morning was at the lower end - I am concerned about this and reduce the dose lantus to 11 units Q12. I will increase her coverage to 1 unit for every 40 mg/dl greater than 150 mg/dl Chronic obstructive lung disease (Chronic) She had a cough last night. Her WBC and % neuts are higher this morning, but her CRP is not elevated, suggesting an acute process. She has a low grade fever. I will check a CXR and also a U/A. I will hold antibacterials and repeat labs tomorrow to see if she clears this herself DVT prophylaxis (Chronic 09/15/14) Essential hypertension (Chronic) secondary diagnosis Fibrosis of lung (Chronic) secondary diagnosis Fracture of femoral neck, right (Chronic 09/15/14) Full code status (Chronic 09/15/14) History of fracture of left hip (Chronic) History of right hip hemiarthroplasty (Chronic) Hypercholesteremia (Chronic) secondary diagnosis Migraine (Chronic) secondary diagnosis Osteoporosis (Chronic) secondary diagnosis Rheumatoid arthritis (Chronic) secondary diagnosis I discussed the above with the patient and her sister Janet Sanchez. She is prepared to go on Wednesday for 2 weeks of inpatient rehabilitation. I will discuss with her the possibility of a small dose of mirtazapine to help with her appetite/mood.
[2017-01-30] MEDS ORDERED: Mirtazapine TAB* 15 MG PO PRN (09:11)
[2017-01-30] MEDS: amLODIPine TAB* 5 MG PO SCH (09:30)
[2017-01-30] MEDS: Potassium Chlor TAB* 10 MEQ TAB.ER PO SCH (09:30)
[2017-01-30] MEDS: Insulin GLARGINE(*) 1 UNITS UNIT SUBCUT SCH ×3 (09:30→21:26)
[2017-01-30] MEDS: Oxybutynin XL TAB* 5 MG PO SCH (09:30)
[2017-01-30] MEDS: Propranolol TAB* 20 MG PO SCH ×2 (09:30→21:25)
[2017-01-30] MEDS: predniSONE TAB* 1 MG PO SCH (09:30)
[2017-01-30] MEDS: MEGESTROL 40 MG/ML PO SCH (09:32)
--- NOTE | 2017-01-30 10:40 | RAD ---
INDICATION: Cough, low-grade fever. COMPARISON: January 27, 2017 CT and January 26, 2017 chest radiograph. April 23, 2014 chest radiograph. TECHNIQUE: Sitting AP dual-energy technique and lateral chest views. REPORT: Elevated lung volumes and both diffuse mild prominence of the interstitial markings and patchy rarefaction of the mid to upper lung zone interstitial markings. Mid to lower lung zone interstitial fibrosis with honeycombing based on correlation with CT. Posterior costophrenic angles are obscured due to superimposed metallic components of the wheelchair/chair. No pleural effusions evident. Negative for pneumothorax. Upper normal heart size. Prominent central pulmonary vasculature with peripheral attenuation likely reflecting pulmonary arterial hypertension given advanced pulmonary interstitial disease. IMPRESSION: Advanced chronic obstructive pulmonary disease and emphysema with associated interstitial fibrosis. Stigmata of probable pulmonary arterial hypertension. No superimposed acute cardiopulmonary process evident.
[2017-01-31] MEDS: Heparin VIAL(*) 5000 UNITS/ML VIAL (FIVE THOUSAND) SUBCUT SCH ×3 (05:43→21:13)
[2017-01-31 06:05] LABS: Hematocrit 40 % (35-47); Hemoglobin 13.3 g/dl (12.0-16.0); Mean Corpuscular HGB Conc 33 g/dl (31-36); Mean Corpuscular Hemoglobin 30 pg (27-31); Mean Corpuscular Volume 91 fL (80-97); Mean Platelet Volume 10 um3 (7.4-10.4); Red Blood Count 4.42 10^6/ul (4.0-5.4); Red Cell Distribution Width 17 % (10.5-15); White Blood Count 5.3 10^3/ul (3.5-10.8)
[2017-01-31 06:07] LABS: Add Diff/Slide Review? Slide Review Added; Comments Flag Yes
[2017-01-31 06:28] LABS: BUN/Creatinine Ratio 21.6 (8-20); C Reactive Protein 16.57 mg/L (< 5.00); Calcium 8.6 mg/dL (8.6-10.3); EGFR African American 149.6 (>60); EGFR Non-African American 116.3 (>60); Potassium 3.6 mmol/L (3.5-5.0)
[2017-01-31] MEDS: Insulin LISPRO* 1 UNITS UNIT SUBCUT SCH ×6 (08:25→17:53)
[2017-01-31] MEDS: amLODIPine TAB* 5 MG PO SCH (09:22)
[2017-01-31] MEDS: predniSONE TAB* 1 MG PO SCH (09:22)
[2017-01-31] MEDS: Potassium Chlor TAB* 10 MEQ TAB.ER PO SCH (09:23)
[2017-01-31] MEDS: Oxybutynin XL TAB* 5 MG PO SCH (09:23)
[2017-01-31] MEDS: Propranolol TAB* 20 MG PO SCH ×2 (09:23→21:12)
[2017-01-31] MEDS: Insulin GLARGINE(*) 1 UNITS UNIT SUBCUT SCH (09:43)
--- NOTE | 2017-01-31 09:48 | PN ---
Subjective - Subjective Reason for Note: Progress Note History: She had a hypoglycemic episode this morning and remains symptomatic. She went down to 56 mg/dl and it stayed low from 5:45 to 8:15 (69 mg/dl). I note that I reduced her lantus to 11 units q12 yesterday, but increased her correction bolus. At 20:47 last night her glucose was 314 mg/dl. He received no correction bolus at that time. She is hungry this morning and wants to eat some glucerna Active Problems: Active Problems Fall (Acute) Hyperglycemia (Acute) R73.9 Injury of right elbow (Acute) S59.901A Weight loss (Acute) Chronic obstructive lung disease (Chronic) J44.9 DVT prophylaxis (Chronic 09/15/14) [id number] Essential hypertension (Chronic) I10 Fibrosis of lung (Chronic) J84.10 Fracture of femoral neck, right (Chronic 09/15/14) S72.001A Full code status (Chronic 09/15/14) Z78.9 History of fracture of left hip (Chronic) Z87.81 History of right hip hemiarthroplasty (Chronic) Z96.641 Hypercholesteremia (Chronic) E78.0 Migraine (Chronic) G43.909 Osteoporosis (Chronic) M81.0 Rheumatoid arthritis (Chronic) M06.9 Type 1 diabetes mellitus, uncontrolled (Chronic) E10.65 Current Medications: Current Medications Acetaminophen/Butalbital/Caffeine (Fioricet Tab*) 1 tab PO Q4HR PRN PRN Reason: MIGRAINE HEADACHE Last Admin: 01/29/17 09:42 Dose: 1 tab Amlodipine Besylate (Norvasc Tab*) 5 mg PO DAILY [facility] Last Admin: 01/31/17 09:22 Dose: 5 mg Dextrose (D50w Syringe 50 Ml*) 12.5 gm IV PUSH .FOR FS < 60 - SS PRN PRN Reason: FS < 60 Heparin Sodium (Porcine) (Heparin Vial(*)) 5,000 units SUBCUT Q8HR [facility] Last Admin: 01/31/17 05:43 Dose: 5,000 units Insulin Glargine (Lantus(*)) 11 units SUBCUT BID [facility] Last Admin: 01/30/17 21:26 Dose: 11 units Insulin Human Lispro (Humalog*) 0 units SUBCUT AC [facility] PRN Reason: Protocol Last Admin: 01/31/17 08:55 Dose: Not Given Insulin Human Lispro (Humalog*) 1 units SUBCUT AC [facility] PRN Reason: Protocol Last Admin: 01/31/17 08:25 Dose: Not Given Mirtazapine (Remeron Tab*) 15 mg PO BEDTIME PRN PRN Reason: SLEEP Naproxen (Naprosyn Tab*) 250 mg PO Q8H PRN PRN Reason: PAIN Oxybutynin Chloride (Ditropan Xl Tab*) 5 mg PO DAILY [facility] Last Admin: 01/31/17 09:23 Dose: 5 mg Potassium Chloride (Klor Con Er Tab*) 20 meq PO DAILY WITH MEAL [facility] Last Admin: 01/31/17 09:23 Dose: 20 meq Prednisone (Deltasone Tab*) 3 mg PO DAILY [facility] Last Admin: 01/31/17 09:22 Dose: 3 mg Propranolol HCl (Inderal Tab*) 20 mg PO BID [facility] Last Admin: 01/31/17 09:23 Dose: 20 mg Home Medications: Home Medications Medication Instructions Recorded Confirmed Type Propranolol TAB* [Inderal TAB*] 20 mg PO BID 09/26/12 01/25/17 History amLODIPine TAB* [Norvasc 5 mg TAB*] 5 mg PO DAILY 04/03/14 01/25/17 History Omirbxbdid-Lyzpqxyhalhxf-Vxaui 1 tab PO Q4HR PRN MDD 6 tabs 04/23/14 01/25/17 History [Butalbital/Acetaminophen/ 50-325-40 mg] Ergocalciferol [Vitamin D2] 50,000 unit PO WEEKLY 04/23/14 01/25/17 History Oyster Shell [Oyster Shell Calcium] 500 mg PO BID 04/23/14 01/25/17 History predniSONE TAB* [Deltasone TAB*] 3 mg PO DAILY 04/23/14 01/25/17 History Insulin Lispro [Humalog Kwikpen] 2 unit SUBCUT BID 01/25/17 01/25/17 History Megestrol SUSP* [Megace SUSP*] 40 mg PO DAILY 01/25/17 01/25/17 History Naproxen [Naproxen 500 mg] 500 mg PO BID PRN 01/25/17 01/25/17 History Oxybutynin XL TAB* [Ditropan Xl 5 mg PO DAILY 01/25/17 01/25/17 History TAB*] Potassium Chlor TAB* [Klor Con ER 20 meq PO DAILY WITH MEAL 01/25/17 01/25/17 History TAB*] Allergies: Allergies Allergy/AdvReac Type Severity Reaction Status Date / Time Aspirin Allergy Intermediate Bleeding Verified 01/25/17 19:44 Hydroxychloroquine Allergy Intermediate Rash Verified 01/25/17 19:44 Latex Allergy Mild Rash Verified 01/25/17 19:44 Amitriptyline Allergy Unknown Unknown Verified 01/25/17 19:44 Reaction Details Penicillins Allergy Unknown Unknown Verified 01/25/17 19:44 Reaction Details Objective - Vital Signs Vital Signs: Vital Signs 01/30/17 01/30/17 01/30/17 11:49 15:47 20:00 Temperature 98.1 F 98.4 F 97.5 F Pulse Rate 67 81 91 Respiratory 17 24 20 Rate Blood Pressure 134/85 151/76 143/96 (mmHg) O2 Sat by Pulse 99 100 97 Oximetry 01/30/17 01/31/17 01/31/17 23:40 01:17 05:44 Temperature 98.5 F 98.7 F Pulse Rate 80 101 Respiratory 16 16 Rate Blood Pressure 145/87 168/106 (mmHg) O2 Sat by Pulse 99 97 95 Oximetry 01/31/17 01/31/17 01/31/17 05:51 07:22 08:11 Temperature Pulse Rate 82 76 Respiratory 16 18 Rate Blood Pressure 155/82 155/86 (mmHg) O2 Sat by Pulse 99 Oximetry - Intake and Output Intake and Output: Intake & Output 01/28/17 01/29/17 01/30/17 01/31/17 11:59 11:59 11:59 11:59 Intake Total 1080 1240 1660 1270 Output Total 0 0 0 Balance 1080 1240 1660 1270 Weight 95 lb 12.8 oz Intake: Oral 1080 1240 1660 1270 Output: Urine 0 0 0 Other: Estimated Void Large Medium Large Large # Bowel Movements 0 0 0 0 # Voids 1 2 1 1 ADLs: Meal Record Start: 01/25/17 19: 13 Freq: DAILY@0900,1400,1800 Status: Active Document 01/26/17 09:00 [id number] (Rec: 01/26/17 13:53 [id number] MED-C11) Document 01/26/17 13:53 [id number] (Rec: 01/26/17 13:53 [id number] MED-C11) Document 01/26/17 18:00 [id number] (Rec: 01/26/17 19:06 [id number] MED-C11) Document 01/27/17 09:00 [id number] (Rec: 01/27/17 10:28 [id number] MED-C09) Document 01/27/17 13:58 [id number] (Rec: 01/27/17 14:03 [id number] MED-C09) Document 01/27/17 18:00 [id number] (Rec: 01/27/17 20:16 [id number] MED-C11) Document 01/28/17 14:00 [id number] (Rec: 01/28/17 14:08 [id number] MED-C09) Document 01/28/17 18:00 DMG1154 (Rec: 01/28/17 18:07 [id number] MED-M05) Document 01/29/17 09:00 JWP1540 (Rec: 01/29/17 09:43 [id number] MED-C09) Document 01/29/17 13:32 WGP1045 (Rec: 01/29/17 13:33 [id number] MED-C09) Document 01/29/17 18:00 KLH1591 (Rec: 01/29/17 22:28 [id number] MED-C04) Document 01/30/17 09:00 [id number] (Rec: 01/30/17 09:56 [id number] MED-M05) Document 01/30/17 14:00 [id number] (Rec: 01/30/17 15:24 [id number] MED-C11) Document 01/30/17 18:00 GSY6201 (Rec: 01/30/17 18:10 [id number] MED-C09) Document 01/31/17 09:00 [id number] (Rec: 01/31/17 09:25 [id number] MED-C09) ADLs: Meal Record Start: 01/26/17 15: 52 Freq: DAILY@0900,1400,1800 Status: Inactive Created 01/26/17 15:52 [id number] (Rec: 01/26/17 15:52 [id number] MED-M06) Intake and Output Start: 01/25/17 19: 13 Freq: DAILY@0600,1400,2200 Status: Active Document 01/26/17 03:49 [id number] (Rec: 01/26/17 03:49 [id number] MEDL-C01) Document 01/26/17 14:00 QBG8888 (Rec: 01/26/17 14:58 [id number] MED-C11) Document 01/26/17 22:00 BVZ1618 (Rec: 01/26/17 22:10 [id number] MED-C11) Document 01/26/17 23:49 QVQ0204 (Rec: 01/26/17 23:49 [id number] MEDL-C01) Document 01/27/17 06:00 PUN1474 (Rec: 01/27/17 06:42 CUH1010 MED-C09) Document 01/27/17 13:58 [id number] (Rec: 01/27/17 14:03 IGR9323 MED-C09) Document 01/27/17 16:33 [id number] (Rec: 01/27/17 16:33 [id number] MED-C11) Document 01/27/17 22:00 JZX5165 (Rec: 01/27/17 22:39 [id number] MED-C09) Document 01/28/17 03:44 [id number] (Rec: 01/28/17 03:45 [id number] MED-C42) Document 01/28/17 06:00 [id number] (Rec: 01/28/17 06:08 QGP0365 MED-C42) Document 01/28/17 14:00 KPF7416 (Rec: 01/28/17 14:08 [id number] MED-C09) Document 01/28/17 22:00 XQC9660 (Rec: 01/28/17 23:07 FDO1213 MED-C04) Document 01/29/17 06:00 VSN9656 (Rec: 01/29/17 06:24 [id number] MED-C42) Document 01/29/17 13:32 VES1535 (Rec: 01/29/17 13:33 HNP9354 MED-C09) Document 01/29/17 22:00 [id number] (Rec: 01/29/17 22:29 [id number] MED-C04) Document 01/30/17 06:00 [id number] (Rec: 01/30/17 06:33 [id number] MED-C42) Document 01/30/17 14:00 ZMZ0763 (Rec: 01/30/17 15:24 UGT0307 MED-C11) Document 01/30/17 22:00 [id number] (Rec: 01/30/17 22:01 [id number] MED-C09) Document 01/31/17 06:00 XYS9458 (Rec: 01/31/17 06:05 VOT8724 MEDL-C01) Intake and Output Start: 01/26/17 15: 52 Freq: DAILY@0600,1400,2200 Status: Inactive Created 01/26/17 15:52 [id number] (Rec: 01/26/17 15:52 [id number] MED-M06) - Physical Exam General: No Cyanosis, No Anemia, No Jaundice, No Clubbing Lungs and Chest: Yes: Chest Expansion Full, Chest Expansion Symetrica, Percussion Note Resonant, Vessicular Breath Sounds. No: Wheezes Heart Rate and Rhythm: Regular JVP: Not Elevated Additional Cardiovascular: Yes: Normal Heart Sounds. No: Heart Murmur, Pedal Edema Results - Results Lab Results: Laboratory Results - last 24 hr 01/30/17 01/30/17 01/30/17 11:49 17:04 20:47 WBC RBC Hgb Hct MCV MCH MCHC RDW Plt Count MPV Neut % (Auto) Lymph % (Auto) [place] % (Auto) Eos % (Auto) Baso % (Auto) Absolute Neuts (auto) Absolute Lymphs (auto) Absolute Monos (auto) Absolute Eos (auto) Absolute Basos (auto) Absolute Nucleated RBC Nucleated RBC % Sodium Potassium Chloride Carbon Dioxide Anion Gap BUN Creatinine Est GFR ( Amer) Est GFR (Non-Af Amer) BUN/Creatinine Ratio Glucose POC Glucose (mg/dL) 208 H 170 H 314 H Calcium C-Reactive Protein 01/31/17 01/31/17 01/31/17 05:51 05:51 08:07 WBC 5.3 RBC 4.42 Hgb 13.3 Hct 40 MCV 91 MCH 30 MCHC 33 RDW 17 H Plt Count 195 MPV 10 Neut % (Auto) 36.5 L Lymph % (Auto) 49.5 H [place] % (Auto) 11.0 H Eos % (Auto) 2.3 Baso % (Auto) 0.7 Absolute Neuts (auto) 1.9 Absolute Lymphs (auto) 2.6 Absolute Monos (auto) 0.6 Absolute Eos (auto) 0.1 Absolute Basos (auto) 0 Absolute Nucleated RBC 0 Nucleated RBC % 0.1 Sodium 137 Potassium 3.6 Chloride 107 Carbon Dioxide 25 Anion Gap 5 BUN 11 Creatinine 0.51 Est GFR ( Amer) 149.6 Est GFR (Non-Af Amer) 116.3 BUN/Creatinine Ratio 21.6 H Glucose 58 L POC Glucose (mg/dL) 56 L Calcium 8.6 C-Reactive Protein 16.57 H 01/31/17 08:21 WBC RBC Hgb Hct MCV MCH MCHC RDW Plt Count MPV Neut % (Auto) Lymph % (Auto) [place] % (Auto) Eos % (Auto) Baso % (Auto) Absolute Neuts (auto) Absolute Lymphs (auto) Absolute Monos (auto) Absolute Eos (auto) Absolute Basos (auto) Absolute Nucleated RBC Nucleated RBC % Sodium Potassium Chloride Carbon Dioxide Anion Gap BUN Creatinine Est GFR ( Amer) Est GFR (Non-Af Amer) BUN/Creatinine Ratio Glucose POC Glucose (mg/dL) 69 L Calcium C-Reactive Protein Assessment - Problem List Assessment: Patient Problems Fall (Acute) Hyperglycemia (Acute) Injury of right elbow (Acute) Weight loss (Acute) Chronic obstructive lung disease (Chronic) DVT prophylaxis (Chronic 09/15/14) Essential hypertension (Chronic) Fibrosis of lung (Chronic) Fracture of femoral neck, right (Chronic 09/15/14) Full code status (Chronic 09/15/14) History of fracture of left hip (Chronic) History of right hip hemiarthroplasty (Chronic) Hypercholesteremia (Chronic) Migraine (Chronic) Osteoporosis (Chronic) Rheumatoid arthritis (Chronic) Type 1 diabetes mellitus, uncontrolled (Chronic) Plan: Fall (Acute) Injury of right elbow (Acute) no further falls - working partly with PT - declines other exercises than walking Weight loss (Acute) I have varied accounts of how much she is eating - she is feeling hungry today Labile Type 1 diabetes mellitus, uncontrolled (Chronic)Hyperglycemia (Acute) She was hyperglycemic before bed and hypoglycemic in the morning. This indicates to me that the lantus insulin is too much. I propose to give it as a single injection in the morning as stop the night time dose to prevent night- time hypoglycemia. She may end up higher in the mornings - however I think this will be simpler and safer to adminster. Chronic obstructive lung disease (Chronic) Her WBC and % neuts are down again today, her CRP is a little higher. Her CXR showed nothing new. I don't know what accounted for the rise yesterday - no sign of acute infection now DVT prophylaxis (Chronic 09/15/14) Essential hypertension (Chronic) stable Fibrosis of lung (Chronic) secondary diagnosis Fracture of femoral neck, right (Chronic 09/15/14) Full code status (Chronic 09/15/14) History of fracture of left hip (Chronic) History of right hip hemiarthroplasty (Chronic) Hypercholesteremia (Chronic) secondary diagnosis Migraine (Chronic) secondary diagnosis Osteoporosis (Chronic) secondary diagnosis Rheumatoid arthritis (Chronic) secondary diagnosis I discussed this with the patient and also spoke with Janet Sanchez on the phone and explained the situation
[2017-01-31] MEDS ORDERED: Insulin GLARGINE(*) 1 UNITS UNIT ONE (10:00)
[2017-01-31] MEDS ORDERED: Insulin GLARGINE(*) 1 UNITS UNIT SUBCUT SCH (10:00)
[2017-02-01] MEDS: Heparin VIAL(*) 5000 UNITS/ML VIAL (FIVE THOUSAND) SUBCUT SCH (05:44)
--- NOTE | 2017-02-01 08:15 | PN ---
Subjective - Subjective Reason for Note: Discharge Note History: She is in no pain and has had no further hypoglycemia. She is accepting the need for a period of assisted care for subacute rehabilitation. She has had a bowel movement. She has developed urinary incontinence and according to the RN she is having difficulty acknowledging this. Active Problems: Active Problems Fall (Acute) Hyperglycemia (Acute) R73.9 Injury of right elbow (Acute) S59.901A Weight loss (Acute) Chronic obstructive lung disease (Chronic) J44.9 DVT prophylaxis (Chronic 09/15/14) [id number] Essential hypertension (Chronic) I10 Fibrosis of lung (Chronic) J84.10 Fracture of femoral neck, right (Chronic 09/15/14) S72.001A Full code status (Chronic 09/15/14) Z78.9 History of fracture of left hip (Chronic) Z87.81 History of right hip hemiarthroplasty (Chronic) Z96.641 Hypercholesteremia (Chronic) E78.0 Migraine (Chronic) G43.909 Osteoporosis (Chronic) M81.0 Rheumatoid arthritis (Chronic) M06.9 Type 1 diabetes mellitus, uncontrolled (Chronic) E10.65 Current Medications: Current Medications Acetaminophen/Butalbital/Caffeine (Fioricet Tab*) 1 tab PO Q4HR PRN PRN Reason: MIGRAINE HEADACHE Last Admin: 01/29/17 09:42 Dose: 1 tab Amlodipine Besylate (Norvasc Tab*) 5 mg PO DAILY [facility] Last Admin: 01/31/17 09:22 Dose: 5 mg Dextrose (D50w Syringe 50 Ml*) 12.5 gm IV PUSH .FOR FS < 60 - SS PRN PRN Reason: FS < 60 Heparin Sodium (Porcine) (Heparin Vial(*)) 5,000 units SUBCUT Q8HR [facility] Last Admin: 02/01/17 05:44 Dose: 5,000 units Insulin Glargine (Lantus(*)) 15 units SUBCUT Q24HR [facility] Insulin Human Lispro (Humalog*) 0 units SUBCUT AC [facility] PRN Reason: Protocol Last Admin: 01/31/17 17:52 Dose: 6 units Insulin Human Lispro (Humalog*) 1 units SUBCUT AC [facility] PRN Reason: Protocol Last Admin: 01/31/17 17:53 Dose: 4 unit Mirtazapine (Remeron Tab*) 15 mg PO BEDTIME PRN PRN Reason: SLEEP Naproxen (Naprosyn Tab*) 250 mg PO Q8H PRN PRN Reason: PAIN Oxybutynin Chloride (Ditropan Xl Tab*) 5 mg PO DAILY [facility] Last Admin: 01/31/17 09:23 Dose: 5 mg Potassium Chloride (Klor Con Er Tab*) 20 meq PO DAILY WITH MEAL [facility] Last Admin: 01/31/17 09:23 Dose: 20 meq Prednisone (Deltasone Tab*) 3 mg PO DAILY [facility] Last Admin: 01/31/17 09:22 Dose: 3 mg Propranolol HCl (Inderal Tab*) 20 mg PO BID [facility] Last Admin: 01/31/17 21:12 Dose: 20 mg Home Medications: Home Medications Medication Instructions Recorded Confirmed Type Propranolol TAB* [Inderal TAB*] 20 mg PO BID 09/26/12 01/25/17 History amLODIPine TAB* [Norvasc 5 mg TAB*] 5 mg PO DAILY 04/03/14 01/25/17 History Efzhrzoizc-Woyppwwbbcdom-Rugmz 1 tab PO Q4HR PRN MDD 6 tabs 04/23/14 01/25/17 History [Butalbital/Acetaminophen/ 50-325-40 mg] Ergocalciferol [Vitamin D2] 50,000 unit PO WEEKLY 04/23/14 01/25/17 History Oyster Shell [Oyster Shell Calcium] 500 mg PO BID 04/23/14 01/25/17 History predniSONE TAB* [Deltasone TAB*] 3 mg PO DAILY 04/23/14 01/25/17 History Insulin Lispro [Humalog Kwikpen] 2 unit SUBCUT BID 01/25/17 01/25/17 History Megestrol SUSP* [Megace SUSP*] 40 mg PO DAILY 01/25/17 01/25/17 History Naproxen [Naproxen 500 mg] 500 mg PO BID PRN 01/25/17 01/25/17 History Oxybutynin XL TAB* [Ditropan Xl 5 mg PO DAILY 01/25/17 01/25/17 History TAB*] Potassium Chlor TAB* [Klor Con ER 20 meq PO DAILY WITH MEAL 01/25/17 01/25/17 History TAB*] Allergies: Allergies Allergy/AdvReac Type Severity Reaction Status Date / Time Aspirin Allergy Intermediate Bleeding Verified 01/25/17 19:44 Hydroxychloroquine Allergy Intermediate Rash Verified 01/25/17 19:44 Latex Allergy Mild Rash Verified 01/25/17 19:44 Amitriptyline Allergy Unknown Unknown Verified 01/25/17 19:44 Reaction Details Penicillins Allergy Unknown Unknown Verified 01/25/17 19:44 Reaction Details Objective - Vital Signs Vital Signs: Vital Signs 01/31/17 01/31/17 01/31/17 08:11 11:15 15:13 Temperature 97.7 F Pulse Rate 64 87 Respiratory 18 16 20 Rate Blood Pressure 154/80 146/85 (mmHg) O2 Sat by Pulse 100 97 Oximetry 01/31/17 01/31/17 01/31/17 19:40 20:00 23:31 Temperature 97.5 F 98.8 F Pulse Rate 98 77 Respiratory 18 22 16 Rate Blood Pressure 130/81 147/78 (mmHg) O2 Sat by Pulse 100 97 Oximetry 02/01/17 03:00 Temperature 98.8 F Pulse Rate 67 Respiratory 16 Rate Blood Pressure 149/82 (mmHg) O2 Sat by Pulse 91 Oximetry - Intake and Output Intake and Output: Intake & Output 01/29/17 01/30/17 01/31/17 02/01/17 11:59 11:59 11:59 11:59 Intake Total 1240 1660 1270 120 Output Total 0 0 200 Balance 1240 1660 1070 120 Weight 95 lb 12.8 oz Intake: Oral 1240 1660 1270 120 Output: Urine 0 0 200 Other: Estimated Void Medium Large Large Large # Bowel Movements 0 0 1 0 Estimated Stool Amount Medium Large # Voids 2 1 1 1 ADLs: Meal Record Start: 01/25/17 19: 13 Freq: DAILY@0900,1400,1800 Status: Active Document 01/26/17 09:00 [id number] (Rec: 01/26/17 13:53 [id number] MED-C11) Document 01/26/17 13:53 [id number] (Rec: 01/26/17 13:53 [id number] MED-C11) Document 01/26/17 18:00 [id number] (Rec: 01/26/17 19:06 [id number] MED-C11) Document 01/27/17 09:00 [id number] (Rec: 01/27/17 10:28 [id number] MED-C09) Document 01/27/17 13:58 [id number] (Rec: 01/27/17 14:03 [id number] MED-C09) Document 01/27/17 18:00 [id number] (Rec: 01/27/17 20:16 [id number] MED-C11) Document 01/28/17 14:00 [id number] (Rec: 01/28/17 14:08 [id number] MED-C09) Document 01/28/17 18:00 [id number] (Rec: 01/28/17 18:07 [id number] MED-M05) Document 01/29/17 09:00 [id number] (Rec: 01/29/17 09:43 [id number] MED-C09) Document 01/29/17 13:32 [id number] (Rec: 01/29/17 13:33 [id number] MED-C09) Document 01/29/17 18:00 KHH4696 (Rec: 01/29/17 22:28 JWF5046 MED-C04) Document 01/30/17 09:00 VYR7271 (Rec: 01/30/17 09:56 AQP1312 MED-M05) Document 01/30/17 14:00 LPY3223 (Rec: 01/30/17 15:24 WFK3205 MED-C11) Document 01/30/17 18:00 TNW1586 (Rec: 01/30/17 18:10 PWM2155 MED-C09) Document 01/31/17 09:00 ALI1517 (Rec: 01/31/17 09:25 [id number] MED-C09) Document 01/31/17 18:00 WOZ1898 (Rec: 01/31/17 20:45 [id number] MED-C11) ADLs: Meal Record Start: 01/26/17 15: 52 Freq: DAILY@0900,1400,1800 Status: Inactive Created 01/26/17 15:52 [id number] (Rec: 01/26/17 15:52 [id number] MED-M06) Intake and Output Start: 01/25/17 19: 13 Freq: DAILY@0600,1400,2200 Status: Active Document 01/26/17 03:49 [id number] (Rec: 01/26/17 03:49 [id number] MEDL-C01) Document 01/26/17 14:00 [id number] (Rec: 01/26/17 14:58 KSZ6397 MED-C11) Document 01/26/17 22:00 MBQ3339 (Rec: 01/26/17 22:10 VZX1170 MED-C11) Document 01/26/17 23:49 QZJ4580 (Rec: 01/26/17 23:49 FQI5356 MEDL-C01) Document 01/27/17 06:00 FPS1848 (Rec: 01/27/17 06:42 [id number] MED-C09) Document 01/27/17 13:58 [id number] (Rec: 01/27/17 14:03 HMD5067 MED-C09) Document 01/27/17 16:33 PSR5303 (Rec: 01/27/17 16:33 [id number] MED-C11) Document 01/27/17 22:00 FWR7562 (Rec: 01/27/17 22:39 YQC8367 MED-C09) Document 01/28/17 03:44 [id number] (Rec: 01/28/17 03:45 IUJ3095 MED-C42) Document 01/28/17 06:00 [id number] (Rec: 01/28/17 06:08 [id number] MED-C42) Document 01/28/17 14:00 DLG6153 (Rec: 01/28/17 14:08 [id number] MED-C09) Document 01/28/17 22:00 FVA0232 (Rec: 01/28/17 23:07 [id number] MED-C04) Document 01/29/17 06:00 [id number] (Rec: 01/29/17 06:24 LLK8601 MED-C42) Document 01/29/17 13:32 [id number] (Rec: 01/29/17 13:33 SFZ1005 MED-C09) Document 01/29/17 22:00 ZKQ9647 (Rec: 01/29/17 22:29 [id number] MED-C04) Document 01/30/17 06:00 MCQ9262 (Rec: 01/30/17 06:33 ODB1677 MED-C42) Document 01/30/17 14:00 HIW4627 (Rec: 01/30/17 15:24 CQH0243 MED-C11) Document 01/30/17 22:00 GCH0939 (Rec: 01/30/17 22:01 [id number] MED-C09) Document 01/31/17 06:00 RIO7222 (Rec: 01/31/17 06:05 PZC4136 MEDL-C01) Document 01/31/17 22:00 ECZ1019 (Rec: 01/31/17 22:06 [id number] MED-C11) Document 02/01/17 02:15 [id number] (Rec: 02/01/17 02:16 [id number] MED-C42) Intake and Output Start: 01/26/17 15: 52 Freq: DAILY@0600,1400,2200 Status: Inactive Created 01/26/17 15:52 [id number] (Rec: 01/26/17 15:52 [id number] MED-M06) - Physical Exam General Physical Exam Comment: Marked stigmata of rheumatoid arthritis, thin with muscle wasting General: No Cyanosis, No Jaundice, No Clubbing Lungs and Chest: Yes: Chest Expansion Full, Chest Expansion Symetrica, Percussion Note Resonant, Vessicular Breath Sounds, Crackles. No: Wheezes, Respiratory Distress Heart Rate and Rhythm: Regular JVP: Not Elevated Additional Cardiovascular: Yes: Normal Heart Sounds. No: Heart Murmur, Pedal Edema Abdominal Exam: Yes: Soft, Bowel Sounds Present. No: Distention, Abdominal Tenderness - Extremities Cranial Nerves II-XII Intact: Yes Limbs: Normal Power, Normal Tone - Neuro Orientation: A/O x3 Psychiatric: Depressed Speech: Normal Results - Results Lab Results: Laboratory Results - last 24 hr 01/31/17 01/31/17 01/31/17 08:07 08:21 12:30 Glucose 429 H POC Glucose (mg/dL) 56 L 69 L 01/31/17 01/31/17 02/01/17 16:24 21:12 07:13 Glucose POC Glucose (mg/dL) 387 H 201 H 269 H Assessment - Problem List Assessment: Patient Problems Fall (Acute) Hyperglycemia (Acute) Injury of right elbow (Acute) Weight loss (Acute) Chronic obstructive lung disease (Chronic) DVT prophylaxis (Chronic 09/15/14) Essential hypertension (Chronic) Fibrosis of lung (Chronic) Fracture of femoral neck, right (Chronic 09/15/14) Full code status (Chronic 09/15/14) History of fracture of left hip (Chronic) History of right hip hemiarthroplasty (Chronic) Hypercholesteremia (Chronic) Migraine (Chronic) Osteoporosis (Chronic) Rheumatoid arthritis (Chronic) Type 1 diabetes mellitus, uncontrolled (Chronic) Plan: Fall (Acute) Injury of right elbow (Acute) Weight loss (Acute) This was due to weakness after significant weight loss/failing to thrive at home. We have ruled out common malignancies. Her poor metabolic control of her T1D contributes to her state, but is not the cause. Psychiatry has ruled out dementia and depression. 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 Hyperglycemia (Acute) I have changed to daily lantus injection in the morning to prevent am hypoglycemia Chronic obstructive lung disease (Chronic) secondary diagnosis DVT prophylaxis (Chronic 09/15/14) Essential hypertension (Chronic) secondary diagnosis Fibrosis of lung (Chronic) secondary diagnosis Fracture of femoral neck, right (Chronic 09/15/14) Full code status (Chronic 09/15/14) History of fracture of left hip (Chronic) History of right hip hemiarthroplasty (Chronic) Hypercholesteremia (Chronic) secondary diagnosis Migraine (Chronic) secondary diagnosis Osteoporosis (Chronic) secondary diagnosis Rheumatoid arthritis (Chronic) secondary diagnosis Type 1 diabetes mellitus, uncontrolled (Chronic) see above. I spoke with the patient and discussed the aims of her subacute discharge. I also discussed the nature and rationale for mirtazepine.
[2017-02-01] MEDS ORDERED: Insulin GLARGINE(*) 1 UNITS UNIT SUBCUT SCH (09:00)
[2017-02-01] MEDS: Insulin LISPRO* 1 UNITS UNIT SUBCUT SCH ×2 (09:12→09:17)
[2017-02-01] MEDS: Potassium Chlor TAB* 10 MEQ TAB.ER PO SCH (09:14)
[2017-02-01] MEDS: Oxybutynin XL TAB* 5 MG PO SCH (09:14)
[2017-02-01] MEDS: Propranolol TAB* 20 MG PO SCH (09:14)
[2017-02-01] MEDS: predniSONE TAB* 1 MG PO SCH (09:14)
[2017-02-01] MEDS: amLODIPine TAB* 5 MG PO SCH (09:15)
[2017-02-01] MEDS: Butalb/Acetamin/Caff TAB* 1 TAB PO PRN (09:20)
[2017-02-01 09:28] VITALS: BP 140/80
--- NOTE | 2017-02-01 10:36 | DS ---
CC: [facility] * DISCHARGE SUMMARY: DATE OF ADMISSION: 01/26/17 DATE OF DISCHARGE: 02/01/17 DISCHARGE DIAGNOSES: 1. Fall, injury to right elbow without fracture. 2. Major recent weight loss. 3. Failure to thrive. 4. Comorbidities. Type 1 diabetes, uncontrolled with hyperglycemia and labile glycemic swings. 5. Mild depression/adjustment disorder. 6. 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 7. Urinary incontinence. SECONDARY DIAGNOSES: 1. COPD and pulmonary fibrosis. 2. Essential hypertension. 3. Prior history of fracture of right femoral neck and right hip hemiarthroplasty. 4. Hypercholesterolemia. 5. Migraine headaches which are frequent. 6. Osteoporosis. 7. Rheumatoid arthritis. 8. Uncontrolled type 1 diabetes mellitus. 9. Major weight loss. HISTORY: Mariajose Palacios is a 81-year-old right-handed female. She was living on her own with family support in her own home prior to admission. Her sister, Janet Sanchez, visits her every morning. She has had recent history of major weight loss. Her presentation is documented in detail in Dr. Lupe Hubbard's admitting history and physical. The day before admission on 01/24/17, she fell. She was not using either her walker or her cane at home. She injured her right elbow. She could not get off the floor. Phoned her sister, Janet Sacnhez, who arrived after an hour and a half of her being on the floor. Helped her into her chair. The following morning when Janet arrived, it was apparent she had not left this chair overnight. She had pain in her right elbow and noted that she had not taken her insulin, that her blood sugar was high and sent her to the emergency room. In the emergency room , her glucose was initially 571, lactic acid of 2.3. She looked a bit dry. PHYSICAL EXAMINATION: Vital signs: Blood pressure 165/98. Heart rate 75. Respirations 16. Oxygen saturation 91% on room air. Temperature 97.7. She had 1+ pitting edema of her feet. Cardiovascular system: There were no murmurs. Abdomen: Had bowel movements and was slightly distended. Neurological : Speech clear. Cranial nerves II through XII are intact. Motor strength 5/5 bilaterally. LABORATORY DATA: Elbow x-ray showed "an old healed transcondylar humeral fracture and osteoarthritis, no acute findings". Sodium 132, potassium 4.2, chloride 103, bicarb 22, BUN 29, creatinine 0.89. Normal LFTs. CRP 17. Glucose 571. CBC: White count 5.5. Hemoglobin 14.3, hematocrit 45, platelets 167. ASSESSMENT: 1. Labile diabetic control.. She forgot she had high blood sugar because she had not taken her insulin. 2. Fall. Seemed mildly dehydrated. We felt that she needed gentle rehydration , noted weight loss. 3. Rheumatoid arthritis. We will continue prednisone. INVESTIGATIONS DURING HOSPITALIZATION: Imaging: Brain CT scan; advanced cortical atrophy and chronic microvascular ischemic changes, no acute findings. Chest x- ray; findings consistent with chronic interstitial lung disease, no acute findings. The chest x-ray was repeated 01/30/17 as she had had an episode of coughing on this occasion. COPD was noted with emphysema and associated interstitial fibrosis. Signs of probable pulmonary artery hypertension. No acute disease. 01/27/17, brain MRI, involutional change, stigmata of chronic small vessel ischemic disease. Few additional new foci of hemosiderin in the right cerebral hemisphere compared to 2014 consistent with chronic sequelae of punctate intraaxial hemorrhage. No evidence for acute or subacute ischemia. Negative for mass effect. CT scan of chest, abdomen, and pelvis; limited study. Emphysema in the lung bases. Gastric mucosal thickening. Atherosclerotic change. Right hip arthroplasty. No evidence of any malignancy. Echocardiogram, a transthoracic echocardiogram, 01/27/17, moderate concentric left ventricular hypertrophy, ejection fraction 60-65%, diastolic dysfunction, no evidence of a right atrial mass (one was determined in 2014, however on the study there is no evidence for it). Trace MR, moderate TR. Evidence of severe pulmonary hypertension, mild to moderate pulmonary regurgitation. Otherwise not many significant changes since 2014. LABORATORY INVESTIGATIONS: SPEP was negative. Troponin I was 0.03. Cortisol was 6. CONSULTATIONS: 01/27/17, Dr. Katrin Hernandez for an assessment of occult malignancy and to explain weight loss and failure to thrive. This consultation is part of the electronic medical record. She noted an unexplained 20 pound weight loss and failure to thrive. Unremarkable lab work. Recommended the CT scan of her chest, abdomen, and pelvis; suggested serology. Also recommended hepatitis C and HIV testing, both of which were negative. This was an unrevealing evaluation for failure to thrive. Consultation, Dr. Jerry Arevalo. Three reasons for consultation: 1. To rule out dementia. 2. To rule out depression. 3. To determine capacity. His consultation is part of the electronic medical record. His diagnosis was age- related cognitive decline. Noted a mini-mental state of 27 out of 30. Did not feel she met criteria for depression. HOSPITAL PROGRESS: 1. Type 1 diabetes mellitus. She had labile blood sugars and mild hyperglycemia during her hospital stay. I tried a number of different strategies including increasing her basal insulin which just resulted in hypoglycemia in the mornings, increasing her bolus insulin which was a little more successful. I changed her Lantus insulin to once daily in the morning to prevent sorter/assay tech hypoglycemia. She has been running in the mid 200s on average. This can be improved over time by increasing her prandial insulin more than changing her basal insulin. 2. Failure to thrive, weight loss. She had a thorough investigation. I was unable to find any focal cause for this in that we ruled out both occult malignancy and neurocognitive problems. However, I feel that she has either an adjustment disorder or some degree of depression, and I started her on mirtazapine 15 mg q.h.s. for three purposes; one, to help with depression; two, to stimulate appetite and; three, to help with sleep. 3. Rehabilitation. She was evaluated by OT and PT who felt that she would be a good candidate for skilled subacute rehabilitation. She was cooperative on occasion with walking, but not with other exercises. On the day of discharge, she tells me about her migraine headaches. She had a pronouncement day in the hospital. This was a chronic problem. She has no new focal difficulties. REVIEW OF SYSTEMS: General: No fevers or sweats. She states she is hungry. Respiratory system: No productive cough or hemoptysis. Cardiovascular system: No chest pain, palpitations. Gastrointestinal system: No nausea, vomiting, abdominal pain. She had a bowel movement yesterday. Nervous system: She has a migraine. PHYSICAL EXAMINATION ON DAY OF DISCHARGE: Vital signs: Temperature 98.8. Pulse 67. Respiratory rate 16. Oxygen saturation 95% on 2 liters nasal cannula. Blood pressure 149/82. She looks cachetic. Her weight is given as 95 pounds. I think this is optimistic. She was 86 pounds on admission. She has muscle wasting. She has many signs of advanced rheumatoid arthritis. Cardiovascular system: Her pulse was regular. Heart sounds were normal. Venous pressure was not elevated. She had no pedal edema. No carotid bruits. Respiratory system: Chest expansion is full and symmetrical. Percussion was hyperresonant. Breath sounds were vesicular with rest and rate basilar fibrotic crackles. Abdominal examination: No distention, masses, tenderness, or organomegaly. Bowel sounds present. Nervous system: Alert and oriented. Conjugate eye movements. Cranial nerves II-XII intact and she is moving her arms and her legs. ASSESSMENT AND PLAN: 1. Fall, right elbow injury. She had no fractures. Her right elbow has recovered mostly from this fall. 2. Failure to thrive. Weight loss. She has had a significant weight loss. We have performed a comprehensive search for her weight loss that includes an oncology consultation, imaging of her brain, chest, abdomen, and pelvis, all of which are negative. Investigations otherwise do not come up with a focal cause of a malignancy. It is possible that this is occult and is a driving force. Other possible causes of this weight loss include cardiac cachexia from her severe pulmonary hypertension and right-sided strain, poorly controlled type 1 diabetes, a vegetative depression that was not apparent to Psychiatry, a subcortical dementia with loss of executive function that was not apparent to Psychiatry. She has been evaluated by Nutrition, Physical Therapy, and Occupational Therapy and consultations with the patient and her sister, Janet Sanchez. All agree that she needs a period of subacute rehabilitation. It may be that she is having difficulty adjusting to the notion that she is just unable to cope independently at home anymore with her multiple comorbidities and that she will do very well in a more structured environment. I have started her on mirtazapine 15 mg q.h.s. for three reasons; one, increase her appetite; two, help with sleep; and three, to treat any depression that is present. 3. Type 1 diabetes mellitus. She has had chronic poor control with brittle diabetes. I have adjusted her insulin such that she is now getting her basal insulin as Lantus 15 units q.a.m. She has fingersticks before meals and before bed, but we are not giving her correction at bedtime as that results in hypoglycemia overnight, even if her blood sugar is high before bed. Prandial insulin; she is receiving Lispro insulin 1 unit for every 50 mg/dL over 150 mg plus 1 unit for every 10 grams of carbohydrate. We may need to adjust her prandial insulin upward; however, I am trying to avoid hypoglycemia as that, to my mind, is a much more serious consequence. I would like to see her in the 100 mg/dL range most of the time, but I understand that this may take some time to achieve. 4. COPD, pulmonary hypertension, pulmonary fibrosis. This is a progressive condition. She is no longer smoking. She is dependent on oxygen by nasal cannula. The transthoracic echocardiogram confirms that she has severe pulmonary hypertension. 5. Essential hypertension. This is reasonably managed. 6. History of right hip fracture and right hemiarthroplasty of hip. This is a secondary diagnosis and needs to be taken into account with her rehabilitation. 7. Hypercholesterolemia. 8. A secondary diagnosis; migraine headache. This is chronic and occurs multiple times per week. No change in management. 9. Osteoporosis. This is a significant problem for this patient. We should consider restarting alendronate 70 mg weekly. 10. Rheumatoid arthritis. She takes a small dose of prednisone for this and it has kept her rheumatoid arthritis under control; however, she has multiple joint deformities as a result of this condition that make rehabilitation complex. DISCHARGE MEDICATIONS: 1. Glargine insulin 15 units q.a.m. 2. Lispro insulin 1 unit for every 10 grams of carbohydrate and 1 unit for every 50 mg/dL above 150 mg/dL. 3. Mirtazapine 15 mg q.h.s. 4. Amlodipine 5 mg daily. 5. Propranolol 20 mg daily. 6. Calcium carbonate 500 mg daily. 7. Ergocalciferol 87926 units once weekly. 8. Prednisone 3 mg daily. 9. Butalbital/acetaminophen/caffeine 50/325/40 mg one tablet every 4 hours as needed for migraine. 10. Naproxen 500 mg twice daily as needed for joint pain. 11. Oxybutynin XL 5 mg daily. [id number]/[facility] #: [id number] [facility]
== END 2017-02-01 12:15 | DRG 638 ==
LOC: ED 13:21 → MED 18:07 → OBSVTOIN 01-26 14:11
PROVIDERS: ADMIT Internal Medicine; ATTEND Internal Medicine
DX: E10.65 Type 1 diabetes mellitus with hyperglycemia (principal); E87.1 Hypo-osmolality and hyponatremia; I27.2 Other secondary pulmonary hypertension; Z99.81 Dependence on supplemental oxygen; Z68.1 Body mass index [BMI] 19.9 or less, adult; M06.9 Rheumatoid arthritis, unspecified; R63.4 Abnormal weight loss; E86.0 Dehydration; G31.84 Mild cognitive impairment of uncertain or unknown etiology; J44.9 Chronic obstructive pulmonary disease, unspecified; I10 Essential (primary) hypertension; E78.00 Pure hypercholesterolemia, unspecified; S50.01XA Contusion of right elbow, initial encounter; W18.30XA Fall on same level, unspecified, initial encounter; Y92.009 Unspecified place in unspecified non-institutional (private) residence as the place of occurrence of the external cause; R62.7 Adult failure to thrive; F43.21 Adjustment disorder with depressed mood; R32 Unspecified urinary incontinence; G43.909 Migraine, unspecified, not intractable, without status migrainosus; T38.3X6A Underdosing of insulin and oral hypoglycemic [antidiabetic] drugs, initial encounter; M81.0 Age-related osteoporosis without current pathological fracture; Z79.4 Long term (current) use of insulin; Z79.84 Long term (current) use of oral hypoglycemic drugs; Z79.52 Long term (current) use of systemic steroids; Z79.899 Other long term (current) drug therapy; Z88.0 Allergy status to penicillin; Z88.8 Allergy status to other drugs, medicaments and biological substances; Z88.6 Allergy status to analgesic agent; Z91.040 Latex allergy status; Z80.0 Family history of malignant neoplasm of digestive organs; Z87.891 Personal history of nicotine dependence; Z91.138 Patient's unintentional underdosing of medication regimen for other reason; Z96.641 Presence of right artificial hip joint; Z85.3 Personal history of malignant neoplasm of breast
CPT/HCPCS: 36415; 70450; 70551; 71020; 71250; 74176; 80048; 80053; 82533; 82947; 83605; 84134; 84155; 84165; 84484; 85025; 86140; 86703; 86803; 93306; 94760; 99223; A9270-GY; G0378; J1644

== ENCOUNTER 2018-02-06 21:04 | Emergency (ER) | payer MEDICARE, OTHER ==
--- NOTE | 2018-02-06 22:19 | ED ---
Complex/Multi-Sys Presentation - HPI Summary HPI Summary: This is scribe Everett Khan documenting for attending Linda Jordan MD. A 82 y/o female OBEY presents to ED s/p increased blood glucose. In the ED room , the patient has a pulse of 60 BPM, O2 saturation of 95% and blood pressure of 146/91. As per triage, "Pt was found with BG=20 at home. Pt amnesic to events prior. Pt states she does use insulin bid but does not remember if she took second dose. Pt currently alert and oriented to person and place". According to the patient, she lives at home by herself and she gives herself insulin. The patient is unsure of what happened and doesn't remember. All she remembers is that she was cooking dinner and having "lunch". As per son, he couldn't get ahold of the patient so he came over to the house. The patient does know what she is doing when giving insulin to herself, but he and the patient's sister needs to constantly check up on the patient to make sure she keeps her routine schedule such as eating and checking her blood glucose. As per sister, patient is on an insulin pen and takes 2 kinds of insulin. She does check her blood sugar and when she does the sliding scale and take 2 units of Novalog before she eats. The son and sister normally go down at noon and sometime in the evening, however, they are not able to be there /, so they are constantly on the phone to make sure the patient is alright. If they get no answer on the phone, or the phone is busy for a long time then they zip right over to the patient's house to make sure she is fine. The patient noted that she normally takes her insulin in the morning of 6-8 Novalog, then 10-15 minutes alte she takes Lantis. Then after that she eats her oatmeal, which is right around the time to take lunch which is what she stated she was doing. As per family, the patient did not eat oatmeal as it still was in the microwave. Patient noted that she doesn't use glasses. I, Dr. Jordan personally performed the services described in this documentation as scribed in my presence and it is both accurate and complete. - History Of Current Complaint Chief Complaint: EDGeneral Time Seen by Provider: 02/06/18 22:05 Hx Obtained From: Patient Onset/Duration: Sudden Onset, Lasting Hours Severity Currently: None Location: Negative Character: Unable To Describe Aggravating Factor(s): NOTHING Alleviating Factor(s): NOTHING Associated Signs And Symptoms: Positive: Other - NONE - Allergies/Home Medications Allergies/Adverse Reactions: Allergies Allergy/AdvReac Type Severity Reaction Status Date / Time MS Aspirin [Aspirin] Allergy Intermediate Bleeding Verified 02/06/18 21:16 MS Hydroxychloroquine Allergy Intermediate Rash Verified 02/06/18 21:16 [Hydroxychloroquine] MS Latex [Latex] Allergy Mild Rash Verified 02/06/18 21:16 MS Amitriptyline Allergy Unknown Unknown Verified 02/06/18 21:16 [Amitriptyline] Reaction Details MS Penicillins [Penicillins] Allergy Unknown Unknown Verified 02/06/18 21:16 Reaction Details PMH/Surg Hx/FS Hx/Imm Hx Endocrine/Hematology History: Reports: Hx Diabetes - IDDM Denies: Hx Anemia Cardiovascular History: Reports: Hx Hypertension, Other Cardiovascular Problems/ Disorders - MYXOMA HEART Denies: Hx Pacemaker/ICD Respiratory History: Reports: Hx Chronic Obstructive Pulmonary Disease (COPD) - pt reports 2L at home prn, per chart-pt wears 3L O2 at night), Other Respiratory Problems/Disorders - COPD GI History: Denies: Hx Jaundice History: Denies: Hx Renal Disease Musculoskeletal History: Reports: Hx Arthritis - RA, Other Musculoskeletal History - OSTEOPOROSIS Sensory History: Reports: Hx Cataracts, Hx Contacts or Glasses Denies: Hx Hearing Aid Opthamlomology History: Reports: Hx Cataracts, Hx Contacts or Glasses Neurological History: Reports: Hx Migraine - OCCASIONAL Denies: Hx Headaches Psychiatric History: Denies: Hx Panic Disorder - Cancer History Hx Chemotherapy: No Hx Radiation Therapy: No - Surgical History Surgery Procedure, Year, and Place: Left hip surgery 09/2011, unknown date. cataracts , right hip hemiarthroplasty 2013 Hx Anesthesia Reactions: No - Immunization History Date of Tetanus Vaccine: Unknown Infectious Disease History: No Infectious Disease History: Denies: Traveled Outside the [place] in Last 30 Days - Family History Known Family History: Negative: Blood Disorder - Social History Alcohol Use: None Hx Substance Use: No Substance Use Type: Reports: None Hx Tobacco Use: No Smoking Status (MU): Former Smoker Type: Cigarettes Amount Used/How Often: 1 PPD Have You Smoked in the Last Year: No Review of Systems Negative: Fever Positive: Other - POSITIVE: High blood sugar All Other Systems Reviewed And Are Negative: Yes Physical Exam - Summary Physical Exam Summary: VITAL SIGNS: Reviewed. GENERAL: Patient is a well-developed and nourished female who is lying comfortable in the stretcher. Patient is not in any acute respiratory distress. Normal exam. HEAD AND FACE: No signs of trauma. No ecchymosis, hematomas or skull depressions. No sinus tenderness. EYES: PERRLA, EOMI x 2, No injected conjunctiva, no nystagmus. EARS: Hearing grossly intact. Ear canals and tympanic membranes are within normal limits. MOUTH: Oropharynx within normal limits. NECK: Supple, trachea is midline, no adenopathy, no JVD, no carotid bruit, no c- spine tenderness, neck with full ROM. CHEST: Symmetric, no tenderness at palpation LUNGS: Clear to auscultation bilaterally. No wheezing or crackles. CVS: Regular rate and rhythm, S1 and S2 present, no murmurs or gallops appreciated. ABDOMEN: Soft, non-tender. No signs of distention. No rebound no guarding, and no masses palpated. Bowel sounds are normal. EXTREMITIES: FROM in all major joints, no edema, no cyanosis or clubbing. NEURO: Alert and oriented x 3. No acute neurological deficits. Speech is normal and follows commands. SKIN: Dry and warm Triage Information Reviewed: Yes Vital Signs On Initial Exam: Initial Vitals Temp Pulse Resp BP Pulse Ox 96.1 F 51 15 167/69 97 02/06/18 21:11 02/06/18 21:11 02/06/18 21:11 02/06/18 21:11 02/06/18 21:11 Vital Signs Reviewed: Yes Diagnostics - Vital Signs Vital Signs Temp Pulse Resp BP Pulse Ox 02/06/18 21:11 96.1 F 51 15 167/69 97 - Laboratory Lab Results: Lab Results 02/06/18 Range/Units 21:18 POC Glucose (mg/dL) 131 H (70-100) mg/dL Lab Statement: Any lab studies that have been ordered have been reviewed, and results considered in the medical decision making process. - EKG 2111 Cardiac Rate: Bradycardia - 57 BPM EKG Rhythm: Sinus Bradycardia EKG Interpretation: T-wave inversion of anterior leads, 1st degree AV block. Complex Multi-Symp Course/Dx Course Of Treatment: A 82 y/o female OBEY presents to ED s/p increased blood glucose. No laboratory scans were done. An EKG revealed rate of 57 BPM, T-wave inversion of anterior leads, 1st degree AV block. In the ED course, the patient was given no medications. Patient is to be discharged with a diagnosis of hypoglycemia. Patient is to follow up with PCP in 1-2 days. Patient is agreeable with this plan. - Diagnoses Provider Diagnoses: Hypoglycemia Discharge - Sign-Out/Discharge Documenting (check all that apply): Patient Departure - DISCHARGE - Discharge Plan Condition: Stable Disposition: HOME Patient Education Materials: Hypoglycemia in a Person with Diabetes (ED) Referrals: Toni Bates MD [Primary Care Provider] - 2 Days Additional Instructions: FOLLOW UP WITH PRIMARY CARE IN 1-2 DAYS. RETURN TO ED FOR ANY NEW OR WORSENING SYMPTOMS.
[2018-02-06 23:33] VITALS: BP 175/104
== END 2018-02-07 01:10 | disposition home or self-care (01) ==
LOC: ED 21:04
DX: E10.649 Type 1 diabetes mellitus with hypoglycemia without coma (principal); Z87.891 Personal history of nicotine dependence; I10 Essential (primary) hypertension; Z86.79 Personal history of other diseases of the circulatory system
CPT/HCPCS: 93005; 99283

== ENCOUNTER 2018-07-19 12:38 | Inpatient (IN) | payer MEDICARE ==
[2018-07-19] MEDS ORDERED: NS 0.9% 1000 ML** 1,000 ML IV ONE ×2 (12:47→12:48)
[2018-07-19] MEDS ORDERED: Insulin REGULAR(*) 1 UNITS UNIT IV PUSH ONE (12:49)
--- NOTE | 2018-07-19 12:54 | ED ---
HPI Diabetic - HPI Summary HPI Summary: This patient is a 83 year old female who was brought in by EMS for general malaise and fatigue for the last week. She states her blood glucose began rising yesterday and was in the 300s last evening. She was given 12 units at 1030 this morning with increasing BG after the medications. The patient vomited this morning. She denies pain, CP, injury, sore throat, rhinorrhea, n/d, and urinary sx. She did not drink any water yesterday. EMS reports blood glucose of 400. - History Of Current Complaint Chief Complaint: EDWeakness Time Seen by Provider: 07/19/18 12:42 Hx Obtained From: Patient, Family/Spool Fixer Onset/Duration: Lasting Weeks - 1, Still Present Timing: Constant Severity Initially: Moderate Severity Currently: Moderate Character: Alert Associated Signs & Symptoms: Vomiting - Allergies/Home Medications Allergies/Adverse Reactions: Allergies Allergy/AdvReac Type Severity Reaction Status Date / Time amitriptyline Allergy Unknown Verified 07/19/18 13:39 Reaction Details aspirin Allergy Bleeding Verified 07/19/18 13:39 hydroxychloroquine Allergy Rash Verified 07/19/18 13:39 latex Allergy Rash Verified 07/19/18 13:39 Penicillins Allergy Unknown Verified 07/19/18 13:39 Reaction Details Home Medications: Home Medications Alendronate (NF) [Fosamax (NF)] 70 mg PO WEEKLY 07/19/18 [History Confirmed ] Butalb/Acetamin/Caff TAB* [Fioricet TAB*] 1 tab PO Q4HR PRN 07/19/18 [History Confirmed 07/19/18] Calcium Carbonate [[id number]] 500 mg PO DAILY 07/19/18 [History Confirmed ] Cholecalciferol (Vitamin D3) [Vitamin D3] 1,000 unit PO DAILY 07/19/18 [History Confirmed 07/19/18] Glucagon* [Glucagen*] 1 mg IM ONCE PRN 07/19/18 [History Confirmed 07/19/18] Insulin ASPART (NF) [Novolog (NF)] 2 unit SUBCUT AC MDD 30 unit 07/19/18 [ History Confirmed 07/19/18] Insulin GLARGINE(*) [Lantus(*)] 6 units SUBCUT BID MDD 30 units 07/19/18 [ History Confirmed 07/19/18] Insulin LISPRO* [HumaLOG*] 2 - 12 units SUBCUT AC 07/19/18 [History Confirmed ] LORazepam TAB(*) [Ativan 0.5 MG TAB (*)] 0.5 mg PO Q6H PRN 07/19/18 [History Confirmed 07/19/18] Mirtazapine TAB* [Remeron TAB*] 15 mg PO DAILY 07/19/18 [History Confirmed 07/19] Naproxen TAB* [Naprosyn 250 mg TAB*] 500 mg PO BID PRN 07/19/18 [History Confirmed 07/19/18] Tiotropium CAP.INH* [Spiriva CAP.INH*] 1 cap.inh INH DAILY 07/19/18 [History Confirmed 07/19/18] amLODIPine TAB* [Norvasc 5 mg TAB*] 5 mg PO DAILY 07/19/18 [History Confirmed ] predniSONE TAB* [Deltasone TAB*] 5 mg PO DAILY 07/19/18 [History Confirmed 07/19] PMH/Surg Hx/FS Hx/Imm Hx Endocrine/Hematology History: Reports: Hx Diabetes - IDDM Denies: Hx Anemia Cardiovascular History: Reports: Hx Hypertension, Other Cardiovascular Problems/ Disorders - MYXOMA HEART Denies: Hx Cardiac Arrest, Hx Pacemaker/ICD Respiratory History: Reports: Hx Chronic Obstructive Pulmonary Disease (COPD) - pt reports 2L at home prn, per chart-pt wears 3L O2 at night), Other Respiratory Problems/Disorders - COPD GI History: Denies: Hx Jaundice History: Denies: Hx Renal Disease Musculoskeletal History: Reports: Hx Arthritis - RA, Other Musculoskeletal History - OSTEOPOROSIS Sensory History: Reports: Hx Cataracts, Hx Contacts or Glasses Denies: Hx Hearing Aid Opthamlomology History: Reports: Hx Cataracts, Hx Contacts or Glasses Neurological History: Reports: Hx Migraine - OCCASIONAL Denies: Hx Headaches Psychiatric History: Denies: Hx Panic Disorder - Cancer History Hx Chemotherapy: No Hx Radiation Therapy: No - Surgical History Surgery Procedure, Year, and Place: Left hip surgery 09/2011, unknown date. cataracts , right hip hemiarthroplasty 2013 Hx Anesthesia Reactions: No - Immunization History Date of Tetanus Vaccine: Unknown Infectious Disease History: No Infectious Disease History: Denies: Traveled Outside the [place] in Last 30 Days - Family History Known Family History: Negative: Renal Disease, Blood Disorder - Social History Alcohol Use: None Hx Substance Use: No Substance Use Type: Reports: None Hx Tobacco Use: No Smoking Status (MU): Former Smoker Type: Cigarettes Amount Used/How Often: 1 PPD Have You Smoked in the Last Year: No Review of Systems Positive: Fatigue - and general malaise Negative: Sore Throat, Nasal Discharge Positive: Other - elevated BG . Negative: Chest Pain Positive: Vomiting. Negative: Diarrhea, Nausea Positive: no symptoms reported All Other Systems Reviewed And Are Negative: Yes Physical Exam - Summary Physical Exam Summary: Appearance: chronically ill appearing, mild distress. Skin: warm, dry, reflects adequate perfusion Head/face: normal Eyes: EOMI, MARINA ENT: mucous membranes tacky Neck: supple, non-tender Respiratory: CTA, breath sounds present, tachypneic Cardiovascular: tachy but regular, pulses symmetrical, hyper dynamic Abdomen: non-tender, soft Bowel Sounds: present Musculoskeletal: strength/ROM intact, trace LE edema. RA deformity of the hands. Neuro: normal, sensory motor intact, A&Ox3 Triage Information Reviewed: Yes Vital Signs On Initial Exam: Initial Vitals Temp Pulse Resp BP Pulse Ox 98.3 F 108 20 153/80 100 07/19/18 12:43 07/19/18 12:43 07/19/18 12:43 07/19/18 12:43 07/19/18 12:43 Vital Signs Reviewed: Yes Diagnostics - Vital Signs Vital Signs Temp Pulse Resp BP Pulse Ox 07/19/18 12:43 98.3 F 108 20 153/80 100 - Laboratory Result Diagrams: 07/19/18 13:16 07/19/18 15:18 Lab Statement: Any lab studies that have been ordered have been reviewed, and results considered in the medical decision making process. - EKG 1302 Cardiac Rate: Tachycardia EKG Rhythm: Sinus Tachycardia - at [address] Segment: Non-Specific Summary of EKG Findings: first degree AV block, inferior q waves Diabetic Course/Dx - Course Course Of Treatment: Insulin-dependent diabetic who is dry appearing with very high blood sugars presents with generalized malaise. Troponin is elevated and there is evidence of acidosis, anion gap. Her sugars were modestly elevated after IV fluids and 0.1 mg/kg of insulin bolus. His elected to not place her on insulin drip with the help of the hospitalist. Her potassium is 3.9. We will continue to hydrate her at and close her anion gap. Troponin is elevated this may be inciting cause. Patient is aspirin allergic and so Plavix load was given. She will be admitted to the hospitalist service and is done to in guarded condition. Assessment/Plan: Nurse's notes reviewed - Diagnoses Differential Dx: Acute VT, Diabetic Ketoacidosis, Hyperglycemia, Hyperosmolar State, Pneumonia, Pyelonephritis, Sepsis Provider Diagnoses: DKA (diabetic ketoacidoses), Elevated troponin - Physician Notifications Discussed Care Of Patient With: Lupe Hubbard Time Discussed With Above Provider: 14:53 Instructed by Provider To: Admit As Inpatient - I also discussed the case with Dr. Bates, the patient's PCP. - Critical Care Time Critical Care Time: 30-74 min - 30.CCT is EXCLUSIVE of separately billable procedures. Discharge - Sign-Out/Discharge Documenting (check all that apply): Patient Departure - admitted - Discharge Plan Condition: Guarded Disposition: ADMITTED TO [facility] Referrals: Toni Bates MD [Primary Care Provider] - - Billing Disposition and Condition Condition: GUARDED Disposition: Admitted to [facility] - Attestation Statements Document Initiated by Maryannibraymond: Yes Documenting Scribraymond: Girish Jimenez Provider For Whom Cristina is Documenting (Include Credential): Kevyn Adair MD Scribe Attestation: Girish Lai, scribed for Kevyn Adair MD on 07/19/18 at 1642. Scribe Documentation Reviewed: Yes Provider Attestation: The documentation as recorded by the Girish rodriguez accurately reflects the service I personally performed and the decisions made by , Kevyn Adair MD Status of Scribe Document: Viewed
[2018-07-19 13:30] LABS: Hematocrit 52 % (35-47); Hemoglobin 16.9 g/dl (12.0-16.0); Mean Corpuscular HGB Conc 33 g/dl (31-36); Mean Corpuscular Hemoglobin 32 pg (27-31); Mean Corpuscular Volume 97 fL (80-97); Mean Platelet Volume 10.2 fL (7.4-10.4); Platelet Count 179 10^3/ul (150-450); Red Blood Count 5.35 10^6/ul (4.00-5.40); Red Cell Distribution Width 14 % (10.5-15)
[2018-07-19 13:34] LABS: INR 1.05 (0.77-1.02)
[2018-07-19 13:46] LABS: ALT 26 U/L (7-52); Albumin 4.1 g/dL (3.2-5.2); Albumin/Globulin Ratio 0.9 (1-3); Alkaline Phosphatase 92 U/L (34-104); BUN/Creatinine Ratio 20.9 (8-20); Blood Urea Nitrogen 18 mg/dL (6-24); C Reactive Protein 7.43 mg/L (<8.01); Calcium 9.7 mg/dL (8.6-10.3); Creatine Kinase 110 U/L (10-223); EGFR African American 76.6 (>60); EGFR Non-African American 63.3 (>60); Globulin 4.5 g/dL (2-4); Glucose 310 mg/dL (70-100); Sodium 144 mmol/L (135-145); Total Protein 8.6 g/dL (6.4-8.9)
[2018-07-19 13:51] LABS: CO2 Carbon Dioxide 12 mmol/L (22-32); Chloride 112 mmol/L (101-111); Troponin I 0.06 ng/mL (<0.04)
[2018-07-19 13:59] LABS: ABS Basophils 0 10^3/ul (0-0.2); ABS Eosinophils 0 10^3/ul (0-0.6); ABS Lymphocytes 0.7 10^3/ul (1.0-4.8); ABS Monocytes 0.3 10^3/ul (0-0.8); ABS Neutrophils 2.9 10^3/ul (1.5-7.7); ABS Nucleated RBC 0 10^3/ul; Eosinophil % 0 %; Lymphocyte % 17.9 %; Nucleated Red Blood Cells % 0
[2018-07-19] MEDS ORDERED: Clopidogrel TAB* 300 MG PO ONE (14:00)
[2018-07-19 14:10] LABS: Anion Gap 20 mmol/L (2-11)
[2018-07-19 14:44] LABS: Urine Appearance Cloudy; Urine Bilirubin Negative (Negative); Urine Blood Negative (Negative); Urine Color Yellow; Urine Glucose 3+(>=500 mg/dL) (Negative); Urine Ketones 2+ (Negative); Urine Nitrite Negative (Negative); Urine Protein Negative (Negative); Urine Specific Gravity 1.018 (1.010-1.030); Urine Urobilinogen Negative (Negative)
[2018-07-19 14:56] LABS: Phosphorus 1.9 mg/dL (2.5-5.0)
[2018-07-19] MEDS ORDERED: Propranolol TAB* 10 MG PO ONE (14:56)
[2018-07-19] MEDS ORDERED: amLODIPine TAB* 5 MG PO ONE (14:57)
[2018-07-19 15:47] LABS: BUN/Creatinine Ratio 24.6 (8-20); Blood Urea Nitrogen 17 mg/dL (6-24); CO2 Carbon Dioxide 18 mmol/L (22-32); Calcium 8.8 mg/dL (8.6-10.3); EGFR African American 98.8 (>60); EGFR Non-African American 81.7 (>60); Glucose 205 mg/dL (70-100); Sodium 145 mmol/L (135-145)
[2018-07-19 15:48] LABS: Chloride 115 mmol/L (101-111)
[2018-07-19 15:50] LABS: Anion Gap 12 mmol/L (2-11)
[2018-07-19] MEDS ORDERED: LORazepam TAB(*) 0.5 MG PO PRN (16:21)
[2018-07-19] MEDS ORDERED: Dextrose 50% Syringe 50 ML* 25 GM/50 ML SYRINGE IV PUSH PRN (16:22)
[2018-07-19] MEDS ORDERED: NS 0.9% 1000 ML** 1,000 ML IV SCH (16:30)
[2018-07-19] MEDS ORDERED: Magnesium Hydroxide LIQ* 30 ML UDC PO PRN (16:36)
[2018-07-19] MEDS ORDERED: Naproxen TAB* 250 MG PO PRN (16:38)
[2018-07-19] MEDS ORDERED: hydrALAZINE IV* 20 MG/ML VIAL IV SLOW PU PRN (16:41)
[2018-07-19] MEDS ORDERED: Insulin GLARGINE(*) 1 UNITS UNIT SUBCUT ONE (16:45)
[2018-07-19] MEDS: Insulin LISPRO* 1 UNITS UNIT SUBCUT SCH ×2 (18:34→22:11)
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
[2018-07-19] MEDS ORDERED: Insulin GLARGINE(*) 1 UNITS UNIT SUBCUT SCH (21:00)
[2018-07-19] MEDS: Propranolol TAB* 20 MG PO SCH (21:54)
[2018-07-19] MEDS: Senna TAB PO SCH (21:54)
[2018-07-19] MEDS: Docusate CAP* 100 MG PO SCH (21:54)
[2018-07-19] MEDS: Heparin VIAL(*) 5000 UNITS/ML VIAL (FIVE THOUSAND) SUBCUT SCH (21:56)
[2018-07-20] MEDS: Heparin VIAL(*) 5000 UNITS/ML VIAL (FIVE THOUSAND) SUBCUT SCH ×3 (05:46→21:27)
[2018-07-20 06:49] LABS: Hematocrit 43 % (35-47); Hemoglobin 14.1 g/dl (12.0-16.0); Mean Corpuscular HGB Conc 33 g/dl (31-36); Mean Corpuscular Hemoglobin 31 pg (27-31); Mean Corpuscular Volume 95 fL (80-97); Mean Platelet Volume 10.1 fL (7.4-10.4); Platelet Count 161 10^3/ul (150-450); Red Blood Count 4.51 10^6/ul (4.00-5.40); Red Cell Distribution Width 14 % (10.5-15)
[2018-07-20 07:01] LABS: BUN/Creatinine Ratio 17.2 (8-20); Calcium 8.2 mg/dL (8.6-10.3); EGFR African American 120.7 (>60); EGFR Non-African American 99.8 (>60); Potassium 3.6 mmol/L (3.5-5.0)
[2018-07-20 07:23] LABS: ABS Basophils 0 10^3/ul (0-0.2); ABS Eosinophils 0 10^3/ul (0-0.6); ABS Lymphocytes 1.7 10^3/ul (1.0-4.8); ABS Monocytes 0.5 10^3/ul (0-0.8); ABS Neutrophils 2.8 10^3/ul (1.5-7.7); ABS Nucleated RBC 0 10^3/ul; Lymphocyte % 33.2 %; Nucleated Red Blood Cells % 0.2
[2018-07-20 07:28] LABS: Troponin I 0.1 ng/mL (<0.04)
[2018-07-20] MEDS: Tiotropium CAP.INH* CAP.INH/18 MCG (USE ORDER SET !) INH SCH (08:21)
--- NOTE | 2018-07-20 08:41 | PN ---
Subjective - Subjective Reason for Note: Progress Note History: History from patient, sister and chart. She has been eating very little for 1 week. She vomited up cereal yesterday. She has been eating a little bit, she was drinking until 1 day before admission. She is uncomfortable on her left side - no focal pain. She is really constipated. Janet missed the one day on the winter. She has been confused and slurring her words - started yesterday. No complaints of breathing/chest pain. According to sister has had a cough - she denied this to me. She is losing more weight. She has an aide who comes during the day. Usually eats breakfast, afternoon meals on wheels. She doesn't eat vegetables - meat and potatoes. She has food available - but doesn't prepare her own meals in the evening - only eats very little. She stopped her DEXCOM G6 1 week due to technical malfunctions. Every morning she has had hyperglycemia over 1 week >300 mg/dl. Mariajose tells Janet that she has taken her insulin. She tends to take less than instructed. "Many times I don' t know or trust what she is telling me" Janet tells me. Active Problems: Active Problems Hyperglycemia (Acute) R73.9 Ketoacidosis (Acute) E87.2 Semi-starvation (Acute) T73.0XXA Troponin I above reference range (Acute 09/15/14) R79.89 Weight loss (Acute) Breast cancer, left (Chronic) C50.912 Chronic obstructive lung disease (Chronic) J44.9 DVT prophylaxis (Chronic 09/15/14) [id number] Essential hypertension (Chronic) I10 Fibrosis of lung (Chronic) J84.10 Fracture of femoral neck, right (Chronic 09/15/14) S72.001A Full code status (Chronic 09/15/14) Z78.9 History of fracture of left hip (Chronic) Z87.81 History of right hip hemiarthroplasty (Chronic) Z96.641 Hypercholesteremia (Chronic) E78.0 Migraine (Chronic) G43.909 Osteoporosis (Chronic) M81.0 Rheumatoid arthritis (Chronic) M06.9 Type 1 diabetes mellitus, uncontrolled (Chronic) E10.65 Current Medications: Current Medications Acetaminophen/Butalbital/Caffeine (Fioricet Tab*) 1 tab PO Q4HR PRN PRN Reason: MIGRAINE HEADACHE Device (Tiotropium Inhaler Device*) 1 each INH 0900 ONE Stop: 07/20/18 09:01 Dextrose (D50w Syringe 50 Ml*) 12.5 gm IV PUSH .FOR FS < 60 - SS PRN PRN Reason: FS < 60 Docusate Sodium (Colace Cap*) 100 mg PO BID [facility] Last Admin: 07/19/18 21:54 Dose: 100 mg Heparin Sodium (Porcine) (Heparin Vial(*)) 5,000 units SUBCUT Q8HR [facility] Last Admin: 07/20/18 05:46 Dose: 5,000 units Hydralazine HCl (Apresoline Iv*) 5 mg IV SLOW PU Q6H PRN PRN Reason: HTN Last Admin: 07/19/18 22:30 Dose: 5 mg Sodium Chloride (Ns 0.9% 1000 Ml*) 1,000 mls @ 75 mls/hr IV PER RATE [facility] Last Admin: 07/19/18 21:51 Dose: 75 mls/hr Insulin Glargine (Lantus(*)) 6 units SUBCUT Q24H [facility] Insulin Human Lispro (Humalog*) 0 units SUBCUT ACHS [facility]; Protocol Last Admin: 07/19/18 22:11 Dose: 1 unit Lorazepam (Ativan Tab(*)) 0.5 mg PO Q6H PRN PRN Reason: ANXIETY Magnesium Hydroxide (Milk Of Magnesia Liq*) 30 ml PO Q4H PRN PRN Reason: CONSTIPATION Mirtazapine (Remeron Tab*) 15 mg PO DAILY [facility] Naproxen (Naprosyn Tab*) 500 mg PO BID PRN PRN Reason: PAIN Oxybutynin Chloride (Ditropan Xl Tab*) 5 mg PO DAILY [facility] Prednisone (Deltasone Tab*) 5 mg PO DAILY [facility] Propranolol HCl (Inderal Tab*) 20 mg PO BID [facility] Last Admin: 07/19/18 21:54 Dose: 20 mg Senna (Senokot Tab*) 1 tab PO BID [facility] Last Admin: 07/19/18 21:54 Dose: 1 tab Tiotropium Mobile (Spiriva Cap.Inh*) 1 cap INH DAILY [facility] Last Admin: 07/20/18 08:21 Dose: 1 cap - Review of Systems Pulmonary: Negative: Cough, Sputum, Respiratory Distress Cardiology: Negative: Chest Pain, Shortness of Breath, Palpitations, Swelling of Ankles Gastroenterology: Positive: Anorexia, Constipation Negative: Abdominal Pain, Nausea, Vomiting Genital - Urinary: Negative: Dysuria Neurology: Negative: Headache, Change in Vision Home Medications: Home Medications Medication Instructions Recorded Confirmed Type Propranolol TAB* [Inderal TAB*] 20 mg PO BID 09/26/12 07/19/18 History Oxybutynin XL TAB* [Ditropan Xl 5 mg PO DAILY 01/25/17 07/19/18 History TAB*] Alendronate (NF) [Fosamax (NF)] 70 mg PO WEEKLY 07/19/18 07/19/18 History Butalb/Acetamin/Caff TAB* 1 tab PO Q4HR PRN 07/19/18 07/19/18 History [Fioricet TAB*] Calcium Carbonate [[id number]] 500 mg PO DAILY 07/19/18 07/19/18 History Cholecalciferol (Vitamin D3) 1,000 unit PO DAILY 07/19/18 07/19/18 History [Vitamin D3] Glucagon* [Glucagen*] 1 mg IM ONCE PRN 07/19/18 07/19/18 History Insulin ASPART (NF) [Novolog (NF)] 2 unit SUBCUT AC MDD 30 unit 07/19/18 History Insulin GLARGINE(*) [Lantus(*)] 6 units SUBCUT BID MDD 30 units 07/19/18 History Insulin LISPRO* [HumaLOG*] 2 - 12 units SUBCUT AC 07/19/18 07/19/18 History LORazepam TAB(*) [Ativan 0.5 MG 0.5 mg PO Q6H PRN 07/19/18 07/19/18 History TAB (*)] Mirtazapine TAB* [Remeron TAB*] 15 mg PO DAILY 07/19/18 07/19/18 History Naproxen TAB* [Naprosyn 250 mg 500 mg PO BID PRN 07/19/18 07/19/18 History TAB*] Tiotropium CAP.INH* [Spiriva 1 cap.inh INH DAILY 07/19/18 07/19/18 History CAP.INH*] amLODIPine TAB* [Norvasc 5 mg TAB*] 5 mg PO DAILY 07/19/18 07/19/18 History predniSONE TAB* [Deltasone TAB*] 5 mg PO DAILY 07/19/18 07/19/18 History Allergies: Allergies Allergy/AdvReac Type Severity Reaction Status Date / Time amitriptyline Allergy Unknown Verified 07/19/18 13:39 Reaction Details aspirin Allergy Bleeding Verified 07/19/18 13:39 hydroxychloroquine Allergy Rash Verified 07/19/18 13:39 latex Allergy Rash Verified 07/19/18 13:39 Penicillins Allergy Unknown Verified 07/19/18 13:39 Reaction Details Objective - Vital Signs Vital Signs: Vital Signs 07/19/18 07/19/18 07/19/18 12:42 12:43 12:47 Temperature 98.3 F Pulse Rate 112 108 110 Respiratory 20 Rate Blood Pressure 144/104 153/80 126/87 (mmHg) O2 Sat by Pulse 93 100 94 Oximetry 07/19/18 07/19/18 07/19/18 12:48 12:58 13:00 Temperature Pulse Rate 110 104 103 Respiratory Rate Blood Pressure 154/104 (mmHg) O2 Sat by Pulse 93 96 98 Oximetry 07/19/18 07/19/18 07/19/18 13:17 13:47 14:00 Temperature Pulse Rate 101 Respiratory 18 19 Rate Blood Pressure 159/99 160/93 (mmHg) O2 Sat by Pulse 94 Oximetry 07/19/18 07/19/18 07/19/18 14:17 14:29 14:47 Temperature Pulse Rate Respiratory 20 17 25 Rate Blood Pressure 188/114 161/96 186/119 (mmHg) O2 Sat by Pulse Oximetry 07/19/18 07/19/18 07/19/18 14:49 15:00 15:17 Temperature Pulse Rate 98 Respiratory 25 23 19 Rate Blood Pressure 170/110 171/108 (mmHg) O2 Sat by Pulse 98 Oximetry 07/19/18 07/19/18 07/19/18 15:47 16:00 16:17 Temperature Pulse Rate Respiratory 21 16 22 Rate Blood Pressure 179/121 169/117 (mmHg) O2 Sat by Pulse Oximetry 07/19/18 07/19/18 07/19/18 16:47 17:00 17:17 Temperature Pulse Rate Respiratory 18 18 19 Rate Blood Pressure 156/106 167/104 (mmHg) O2 Sat by Pulse Oximetry 07/19/18 07/19/1819 17:47 18:00 18:17 Temperature Pulse Rate Respiratory 21 18 17 Rate Blood Pressure 172/112 160/98 (mmHg) O2 Sat by Pulse Oximetry 07/19/18 07/19/18 07/19/18 18:47 18:56 19:00 Temperature 98 F Pulse Rate 95 Respiratory 19 16 18 Rate Blood Pressure 169/104 171/108 (mmHg) O2 Sat by Pulse 96 Oximetry 07/19/18 07/19/18 07/19/18 19:17 19:47 20:00 Temperature Pulse Rate 86 86 Respiratory 19 21 17 Rate Blood Pressure 169/103 163/105 (mmHg) O2 Sat by Pulse 100 100 Oximetry 07/19/18 07/19/18 07/19/18 20:07 20:17 20:47 Temperature Pulse Rate 85 90 Respiratory 17 23 25 Rate Blood Pressure 153/106 171/108 167/109 (mmHg) O2 Sat by Pulse 81 Oximetry 07/19/18 07/19/18 07/19/18 21:00 21:45 23:29 Temperature 98.8 F 99.2 F Pulse Rate 90 82 Respiratory 23 18 18 Rate Blood Pressure 174/100 161/101 (mmHg) O2 Sat by Pulse 97 Oximetry 07/20/18 03:45 Temperature Pulse Rate 89 Respiratory 24 Rate Blood Pressure 122/67 (mmHg) O2 Sat by Pulse 100 Oximetry - Intake and Output Intake and Output: Intake & Output 07/17/18 07/18/18 07/19/18 07/20/18 11:59 11:59 11:59 11:59 Intake Total 2555 Balance 2555 Weight 100 lb 8 oz Intake: IV Fluids 2555 NS (0.9%) 555 Oral 0 Other: Estimated Void Medium # Voids 1 ADLs: Meal Record Start: 07/19/18 20: 48 Freq: DAILY@0900,1400,1800 Status: Active Protocol: Created 07/19/18 20:48 System (Rec: 07/19/18 20:48 System [id number]) Intake and Output Start: 07/19/18 12: 44 Freq: Status: Active Protocol: Created 07/19/18 12:44 System (Rec: 07/19/18 12:44 System [id number]) Intake and Output Start: 07/19/18 20: 48 Freq: DAILY@0600,1400,2200 Status: Active Protocol: Created 07/19/18 20:48 System (Rec: 07/19/18 20:48 System MED-C11) Document 07/19/18 22:00 [id number] (Rec: 07/19/18 22:13 [id number] MED-C13) Document 07/20/18 05:23 [id number] (Rec: 07/20/18 05:24 [id number] MED-C13) - Physical Exam General Physical Exam Comment: She is emaciated. She cooperates with her examination. She is hemodynamically stable General: No Cyanosis, No Anemia, No Jaundice, No Clubbing Skin: Normal: Rash Endocrine: No Central Obesity - thin, No Hirsuitism, No Virilism, No Acromegaly , No Vitiligo, No Flushing, No Acanthosis nigricans, No Violaceious striae, No Gary Syndrome, No Buccal pigmenatation Lungs and Chest: Yes: Chest Expansion Full, Chest Expansion Symetrica, Crackles - dry inspiratory crackles both bases, Other - tachypnea. No: Percussion Note Resonant - hyper-resonant, Vessicular Breath Sounds - emphysematous, Wheezes, Respiratory Distress, Use of Accessory Muscles Heart Rate and Rhythm: Tachycardia JVP: Not Elevated Additional Cardiovascular: Yes: Normal Heart Sounds, Heart Murmur - 2/6 REBECCA. No : Kinsey Beat not Displaced - diplaced apex beat - left ventricular heave, Carotid Bruits, Pedal Edema Abdominal Exam: Yes: Soft, Bowel Sounds Present. No: Distention, Abdominal Mass , Abdominal Tenderness - Extremities Cranial Nerves II-XII Intact: Yes Limbs: Normal Coordination, Abnormal Power - Generally weak, poor muscle bulk - Neuro Orientation: Person, Place Speech: Normal Results - Results Lab Results: Laboratory Results - last 24 hr 07/19/18 07/19/18 07/19/18 11:22 13:15 13:16 WBC 4.0 RBC 5.35 Hgb 16.9 H Hct 52 H MCV 97 MCH 32 H MCHC 33 RDW 14 Plt Count 179 MPV 10.2 Neut % (Auto) 74.3 Lymph % (Auto) 17.9 Toombs % (Auto) 7.3 Eos % (Auto) 0 Baso % (Auto) 0.5 Absolute Neuts (auto) 2.9 Absolute Lymphs (auto) 0.7 L Absolute Monos (auto) 0.3 Absolute Eos (auto) 0 Absolute Basos (auto) 0 Absolute Nucleated RBC 0 Nucleated RBC % 0 INR (Anticoag Therapy) 1.05 H VBG pH VBG pCO2 VBG pO2 VBG HCO3 VBG O2 Saturation VBG Base Excess Sodium Potassium Chloride Carbon Dioxide Anion Gap BUN Creatinine Est GFR ( Amer) Est GFR (Non-Af Amer) BUN/Creatinine Ratio Glucose POC Glucose (mg/dL) Lactic Acid Calcium Phosphorus Total Bilirubin AST ALT Alkaline Phosphatase Total Creatine Kinase Troponin I C-Reactive Protein B-Natriuretic Peptide 430 H Total Protein Albumin Globulin Albumin/Globulin Ratio Urine Color Urine Appearance Urine pH Ur Specific [place] Urine Protein Urine Ketones Urine Blood Urine Nitrate Urine Bilirubin Urine Urobilinogen Ur Leukocyte Esterase Urine Glucose 07/19/18 07/19/18 07/19/18 13:16 13:16 13:16 WBC RBC Hgb Hct MCV MCH MCHC RDW Plt Count MPV Neut % (Auto) Lymph % (Auto) [place] % (Auto) Eos % (Auto) Baso % (Auto) Absolute Neuts (auto) Absolute Lymphs (auto) Absolute Monos (auto) Absolute Eos (auto) Absolute Basos (auto) Absolute Nucleated RBC Nucleated RBC % INR (Anticoag Therapy) VBG pH 7.27 L VBG pCO2 32 L VBG pO2 39.0 VBG HCO3 15.5 L VBG O2 Saturation 67.1 L VBG Base Excess -11.0 L Sodium 144 Potassium TNP Chloride 112 H Carbon Dioxide 12 L* Anion Gap 20 H BUN 18 Creatinine 0.86 Est GFR ( Amer) 76.6 Est GFR (Non-Af Amer) 63.3 BUN/Creatinine Ratio 20.9 H Glucose 310 H POC Glucose (mg/dL) Lactic Acid 3.6 H* Calcium 9.7 Phosphorus 1.9 L Total Bilirubin 0.40 AST TNP ALT 26 Alkaline Phosphatase 92 Total Creatine Kinase 110 Troponin I 0.06 H* C-Reactive Protein 7.43 B-Natriuretic Peptide Total Protein 8.6 Albumin 4.1 Globulin 4.5 H Albumin/Globulin Ratio 0.9 L Urine Color Urine Appearance Urine pH Ur Specific [place] Urine Protein Urine Ketones Urine Blood Urine Nitrate Urine Bilirubin Urine Urobilinogen Ur Leukocyte Esterase Urine Glucose 07/19/18 07/19/18 07/19/18 13:16 14:20 14:28 WBC RBC Hgb Hct MCV MCH MCHC RDW Plt Count MPV Neut % (Auto) Lymph % (Auto) [place] % (Auto) Eos % (Auto) Baso % (Auto) Absolute Neuts (auto) Absolute Lymphs (auto) Absolute Monos (auto) Absolute Eos (auto) Absolute Basos (auto) Absolute Nucleated RBC Nucleated RBC % INR (Anticoag Therapy) VBG pH VBG pCO2 VBG pO2 VBG HCO3 VBG O2 Saturation VBG Base Excess Sodium 145 Potassium TNP Chloride 115 H Carbon Dioxide 18 L Anion Gap 12 H BUN 17 Creatinine 0.69 Est GFR ( Amer) 98.8 Est GFR (Non-Af Amer) 81.7 BUN/Creatinine Ratio 24.6 H Glucose 205 H POC Glucose (mg/dL) 295 H Lactic Acid Calcium 8.8 Phosphorus Total Bilirubin AST ALT Alkaline Phosphatase Total Creatine Kinase Troponin I C-Reactive Protein B-Natriuretic Peptide Total Protein Albumin Globulin Albumin/Globulin Ratio Urine Color Yellow Urine Appearance Cloudy Urine pH 5.0 Ur Specific [place] 1.018 Urine Protein Negative Urine Ketones 2+ A Urine Blood Negative Urine Nitrate Negative Urine Bilirubin Negative Urine Urobilinogen Negative Ur Leukocyte Esterase Negative Urine Glucose 3+(>=500 mg/dl) A 07/19/18 07/19/18 07/19/18 14:28 14:45 15:18 WBC RBC Hgb Hct MCV MCH MCHC RDW Plt Count MPV Neut % (Auto) Lymph % (Auto) [place] % (Auto) Eos % (Auto) Baso % (Auto) Absolute Neuts (auto) Absolute Lymphs (auto) Absolute Monos (auto) Absolute Eos (auto) Absolute Basos (auto) Absolute Nucleated RBC Nucleated RBC % INR (Anticoag Therapy) VBG pH VBG pCO2 VBG pO2 VBG HCO3 VBG O2 Saturation VBG Base Excess Sodium Potassium 3.9 Chloride Carbon Dioxide Anion Gap BUN Creatinine Est GFR ( Amer) Est GFR (Non-Af Amer) BUN/Creatinine Ratio Glucose POC Glucose (mg/dL) 222 H Lactic Acid 3.2 H* Calcium Phosphorus Total Bilirubin AST ALT Alkaline Phosphatase Total Creatine Kinase Troponin I C-Reactive Protein B-Natriuretic Peptide Total Protein Albumin Globulin Albumin/Globulin Ratio Urine Color Urine Appearance Urine pH Ur Specific [place] Urine Protein Urine Ketones Urine Blood Urine Nitrate Urine Bilirubin Urine Urobilinogen Ur Leukocyte Esterase Urine Glucose 07/19/18 07/19/18 07/19/18 17:54 22:03 22:05 WBC RBC Hgb Hct MCV MCH MCHC RDW Plt Count MPV Neut % (Auto) Lymph % (Auto) [place] % (Auto) Eos % (Auto) Baso % (Auto) Absolute Neuts (auto) Absolute Lymphs (auto) Absolute Monos (auto) Absolute Eos (auto) Absolute Basos (auto) Absolute Nucleated RBC Nucleated RBC % INR (Anticoag Therapy) VBG pH VBG pCO2 VBG pO2 VBG HCO3 VBG O2 Saturation VBG Base Excess Sodium Potassium Chloride Carbon Dioxide Anion Gap BUN Creatinine Est GFR ( Amer) Est GFR (Non-Af Amer) BUN/Creatinine Ratio Glucose POC Glucose (mg/dL) 139 H 176 H Lactic Acid 1.8 Calcium Phosphorus Total Bilirubin AST ALT Alkaline Phosphatase Total Creatine Kinase Troponin I C-Reactive Protein B-Natriuretic Peptide Total Protein Albumin Globulin Albumin/Globulin Ratio Urine Color Urine Appearance Urine pH Ur Specific [place] Urine Protein Urine Ketones Urine Blood Urine Nitrate Urine Bilirubin Urine Urobilinogen Ur Leukocyte Esterase Urine Glucose 07/19/18 07/20/18 07/20/18 22:05 06:06 06:06 WBC 5.0 RBC 4.51 Hgb 14.1 Hct 43 MCV 95 MCH 31 MCHC 33 RDW 14 Plt Count 161 MPV 10.1 Neut % (Auto) 55.2 Lymph % (Auto) 33.2 [place] % (Auto) 9.8 Eos % (Auto) 1.0 Baso % (Auto) 0.8 Absolute Neuts (auto) 2.8 Absolute Lymphs (auto) 1.7 Absolute Monos (auto) 0.5 Absolute Eos (auto) 0 Absolute Basos (auto) 0 Absolute Nucleated RBC 0 Nucleated RBC % 0.2 INR (Anticoag Therapy) VBG pH VBG pCO2 VBG pO2 VBG HCO3 VBG O2 Saturation VBG Base Excess Sodium 141 Potassium 3.6 Chloride 110 Carbon Dioxide 13 L* Anion Gap 18 H BUN 10 Creatinine 0.58 Est GFR ( Amer) 120.7 Est GFR (Non-Af Amer) 99.8 BUN/Creatinine Ratio 17.2 Glucose 324 H POC Glucose (mg/dL) Lactic Acid Calcium 8.2 L Phosphorus Total Bilirubin AST ALT Alkaline Phosphatase Total Creatine Kinase Troponin I 0.11 H* 0.10 H* C-Reactive Protein B-Natriuretic Peptide Total Protein Albumin Globulin Albumin/Globulin Ratio Urine Color Urine Appearance Urine pH Ur Specific [place] Urine Protein Urine Ketones Urine Blood Urine Nitrate Urine Bilirubin Urine Urobilinogen Ur Leukocyte Esterase Urine Glucose 07/20/18 07:47 WBC RBC Hgb Hct MCV MCH MCHC RDW Plt Count MPV Neut % (Auto) Lymph % (Auto) [place] % (Auto) Eos % (Auto) Baso % (Auto) Absolute Neuts (auto) Absolute Lymphs (auto) Absolute Monos (auto) Absolute Eos (auto) Absolute Basos (auto) Absolute Nucleated RBC Nucleated RBC % INR (Anticoag Therapy) VBG pH VBG pCO2 VBG pO2 VBG HCO3 VBG O2 Saturation VBG Base Excess Sodium Potassium Chloride Carbon Dioxide Anion Gap BUN Creatinine Est GFR ( Amer) Est GFR (Non-Af Amer) BUN/Creatinine Ratio Glucose POC Glucose (mg/dL) 323 H Lactic Acid Calcium Phosphorus Total Bilirubin AST ALT Alkaline Phosphatase Total Creatine Kinase Troponin I C-Reactive Protein B-Natriuretic Peptide Total Protein Albumin Globulin Albumin/Globulin Ratio Urine Color Urine Appearance Urine pH Ur Specific [place] Urine Protein Urine Ketones Urine Blood Urine Nitrate Urine Bilirubin Urine Urobilinogen Ur Leukocyte Esterase Urine Glucose Radiology Results: Patient Name: MARIAJOSE MAURICIO Medical Record#: [id number] Ordering Physician: Kevyn Adair MD Acct.#: [id number] : 1935 Age: 83 Sex: F Location: EMERGENCY DEPARTMENT Exam Date: 07/19/18 ADM Status: REG ER Order Information: CHEST AP PORTABLE Accession Number: [id number] CPT: 76286 Indication: Cough. Weakness. Single frontal view of the chest performed at 1327 hours was reviewed. Comparison is made with previous exam dated January 30, 2017. No mediastinal shift is noted. There is cardiomegaly noted. Chronic interstitial disease is noted in the lung bases worse on the left than on the right. Overall no changes noted since January 30, 2017. IMPRESSION: CARDIOMEGALY WITH CHRONIC INTERSTITIAL DISEASE. <Electronically signed by Mari Cevallos MD in OV> 07/19/18 1347 Dictated By: Mari Cevallos MD Dictated Date/Time: 07/19/18 1347 Transcribed Date/Time: 07/19/18 1331 Copy to: CC:Toni Bates MD; Kevyn Adair MD Imaging - [facility] Imaging - [facility] Imaging - [facility] [address] [place], [place] [id number] [place] [id number] [place] [id number] ph [phone]) ph [phone]) ph ([phone]) EKG Report: EKG 07/20/18 87 sinus rhythm WI 230 QTc 503 QRS axis -73 LVH, first degree heart block, left anterior hemiblock. Assessment - Problem List Assessment: Patient Problems Hyperglycemia (Acute) Ketoacidosis (Acute) Semi-starvation (Acute) Troponin I above reference range (Acute 09/15/14) Weight loss (Acute) Breast cancer, left (Chronic) Chronic obstructive lung disease (Chronic) DVT prophylaxis (Chronic 09/15/14) Essential hypertension (Chronic) Fibrosis of lung (Chronic) Fracture of femoral neck, right (Chronic 09/15/14) Full code status (Chronic 09/15/14) History of fracture of left hip (Chronic) History of right hip hemiarthroplasty (Chronic) Hypercholesteremia (Chronic) Migraine (Chronic) Osteoporosis (Chronic) Rheumatoid arthritis (Chronic) Type 1 diabetes mellitus, uncontrolled (Chronic) Plan: Hyperglycemia (Acute) Ketoacidosis (Acute) Semi-starvation (Acute) She has not eaten or drunk fluid sufficiently on and off for the past week. She is constipated. She denies focal symptoms. She is tired. At present she a metabolic acidosis, most likely due to ketones - predominantly from her uncontrolled T1D (mild DKA), but a contribution from semi-starvation. She is also dehydrated - though her BUN/Cr is normal today. The underlying causes are difficult to identify and are likely multifactorial - Poor diet/dehydration - Failure to thrive - Altered mental status (this apparently only occurred yesterday) - this could be secondary to her acidosis - TN/demand ischemia - she has no symptoms or signs of this - I will check a transthoracic echocardiogram. However, elevated troponin I levels in patients with diabetic DKA are well described in the absence of coronary artery disease - I will rule out hyperthyroidism and adrenal insufficiency and vit B12 deficiency Troponin I above reference range (Acute 09/15/14) see above - could be ischemia , but may be secondary to DKA Weight loss (Acute) I will obtain a formal weight today. On 05/04/2018 in my office she was 93 lbs Breast cancer, left (Chronic) There is no sign of recurrence Chronic obstructive lung disease (Chronic) Fibrosis of lung (Chronic) This doesn't seem exacerbated DVT prophylaxis (Chronic 09/15/14) Essential hypertension (Chronic) She has higher BPs, but has not been fully compliant with her medication. Type 1 diabetes mellitus, uncontrolled (Chronic) She has labile diabetic control and is variably compliant with her medication. This has been especially frustrating to her family. We have used a DEXCOM G6 to give us more information about her glucose levels, but it has not worked for 1 week Secondary diagnoses: Fracture of femoral neck, right (Chronic 09/15/14) Full code status (Chronic 09/15/14) History of fracture of left hip (Chronic) History of right hip hemiarthroplasty (Chronic) Hypercholesteremia (Chronic) Migraine (Chronic) Osteoporosis (Chronic) Rheumatoid arthritis (Chronic) her CRP is not elevated I spoke with her sister Janet and her son Lino. Lino states she has been taking her medication. She has been eating, but not a lot. Subsists on TV dinners/ meals on Wheels (picky and eats intermittently). She has had GI problems - she had gastric distress - bloated and wouldn't put on Dexcom glucometer. She declined quickly overnight. She has had hyperglycemic for several days. I will treat her constipation. I will treat her DKA and have a dietitian see her for her nutrition. I will rule out acute cardiac issues. I will consider imaging her for an occult CVA if she doesn't improve in her mental state.
[2018-07-20] MEDS ORDERED: Spiriva Inhaler DEVICE* 1 EACH DEVICE INH ONE (09:00)
[2018-07-20] MEDS ORDERED: Insulin GLARGINE(*) 1 UNITS UNIT SUBCUT SCH (09:00)
[2018-07-20] MEDS ORDERED: NS 0.9% 1000 ML** 1,000 ML IV SCH (09:05)
[2018-07-20] MEDS ORDERED: Magnesium Hydroxide LIQ* 30 ML UDC PO PRN (09:12)
[2018-07-20] MEDS: Insulin GLARGINE(*) 1 UNITS UNIT SUBCUT SCH (10:34)
[2018-07-20] MEDS: predniSONE TAB* 5 MG PO SCH (10:36)
[2018-07-20] MEDS: Insulin LISPRO* 1 UNITS UNIT SUBCUT SCH ×4 (10:36→22:26)
[2018-07-20] MEDS: Senna TAB PO SCH ×2 (10:36→21:26)
[2018-07-20] MEDS: Docusate CAP* 100 MG PO SCH ×2 (10:36→21:26)
[2018-07-20] MEDS: Mirtazapine TAB* 15 MG PO SCH (10:36)
[2018-07-20] MEDS: Butalb/Acetamin/Caff TAB* 1 TAB PO PRN (10:44)
[2018-07-20] MEDS: Propranolol TAB* 20 MG PO SCH ×2 (10:44→21:26)
[2018-07-20 11:29] LABS: TSH (Thyroid Stimulating Horm) 1.01 mcIU/mL (0.34-5.60)
[2018-07-20 11:30] LABS: Free T4 1.35 ng/dL (0.61-1.12)
[2018-07-20] MEDS: Oxybutynin XL TAB* 5 MG PO SCH (13:45)
--- NOTE | 2018-07-20 16:34 | ECHO ---
Patient: ADEOLA MAURICIO [facility] Rec#: [id number] : 1935 Date: 07/20/2018 Age: 83y Height: 155 cm / 61.0 in Weight: 46 kg / 101.4 lbs Sex: F BSA: 1.42 Room#: [facility] Admit Date#: 07/19/2018 Type: Inpatient Referring: Toni Bates MD Reading: Shalini Martinez MD Surveillance Systems Engineer: Zeina Martino [facility] Transthoracic Echocardiogram Indication: Elevated Troponins BP: 149/83 HR: 85 Rhythm: NSR with PACs Findings History: DM,COPD,pulmonary fibrosis, oxygen dependent,HTN,HLD. Technical Comments: The study quality is good. Completed at 1208. Left Ventricle: The left ventricular chamber size is decreased. Global left ventricular wall motion and contractility are within normal limits. The estimated ejection fraction is 60-65%. D shaped septum c/w RV overload. The assessment of diastolic function is non-diagnostic. Left Atrium: The left atrial cavity size is abnormally small. Right Ventricle: The right ventricle is mildly dilated. The right ventricular global systolic function is mildly to moderately reduced. Right Atrium: The right atrium is mildly dilated. A prominent eustachian valve is noted in the right atrium. Aortic Valve: The aortic valve is trileaflet. The aortic valve leaflets are mildly thickened. Systolic excursion of the aortic valve is normal. There is trace to mild aortic regurgitation. There is no evidence of aortic stenosis. Mitral Valve: The mitral valve leaflets appear normal. There is trace to mild mitral regurgitation. There is no evidence of mitral stenosis. Tricuspid Valve: The tricuspid valve leaflets are normal. There is moderate tricuspid regurgitation. The right ventricular systolic pressure is estimated at 70 mmHg. There is evidence of severe pulmonary hypertension. There is no tricuspid stenosis. Pulmonic Valve: The pulmonic valve appears normal. There is mild pulmonic regurgitation. There is no pulmonic stenosis. Pericardium: The pericardium appears normal. There is a moderate pleural effusion. Aorta: There is no dilatation of the ascending aorta. There is no dilatation of the aortic arch. There is no dilation of the aortic root. Pulmonary Artery: The main pulmonary artery appears normal. Venous: The inferior vena cava is dilated. There is an approximate 50% respiratory change in the inferior vena cava dimension. Conclusions The left ventricular chamber size is decreased. The estimated ejection fraction is 60-65%. D shaped septum c/w RV overload. The right ventricle is mildly dilated. The right ventricular global systolic function is mildly to moderately reduced. There is trace to mild aortic regurgitation. There is trace to mild mitral regurgitation. There is moderate tricuspid regurgitation. There is evidence of severe pulmonary hypertension estimated at 70 mmHg. Compared with prior echo of 01/26/17, no longer see LVH, EF is stable, evidence of RV overload seen on prior study as was RV hypokinesis. PA pressure is stable previously 69 mHg. Valve function appears stable. Measurements Name Value Normal Range RVIDd (AP) 2D 3.5 cm (0.9 - 2.6) RVDdMajor (2D) 4.9 cm (2.2 - 4.4) RAd ISD 4CH 5.5 cm (3.4 - 4.9) RA (A4C)W 4.7 cm (2.9 - 4.6) IVSd (2D) 1 cm (0.6 - 1) LVPWd (2D) 0.9 cm (0.6 - 1) LVIDd (2D) 3 cm (3.6 - 5.4) LVIDs (2D) 2 cm - LV FS (2D) 45 % (25 - 45) Aortic Annulus 1.7 cm (1.4 - 2.6) Ao root diameter (2D) 3.1 cm (2.1 - 3.5) Ascending Ao 2.9 cm (2.1 - 3.4) Aortic arch 3 cm (1.8 - 3.4) LA dimension (AP) 2D 2.1 cm (2.3 - 3.8) LAd ISD 4CH 5 cm (2.9 - 5.3) LA ISD 4CH W 3.4 cm (2.5 - 4.5) Name Value Normal Range LA ESV SP 4CH (A/L) 27 ml - LA ESV SP 2CH (A/L) 24 ml - LA ESV BP (A/L) index 26 ml/m2 - Name Value Normal Range MV E-wave Vmax 0.8 m/sec - MV deceleration time 168 msec - LV septal e' Vmax 0.18 m/sec - LV lateral e' Vmax 0.1 m/sec - LV E:e' septal ratio 4.44 ratio - LV E:e' lateral ratio 8 ratio - Name Value Normal Range AV Vmax 1 m/sec - AV VTI 19.4 cm - AV peak gradient 4 mmHg - AV mean gradient 2 mmHg - LVOT Vmax 0.9 m/sec - LVOT VTI 15 cm - LVOT peak gradient 3 mmHg - LVOT mean gradient 1 mmHg - Name Value Normal Range TR Vmax 4 m/sec - TR peak gradient 62 mmHg - RAP 8 mmHg - RVSP 70 mmHg - IVC diameter 2.5 cm - Name Value Normal Range PV Vmax 1 m/sec - PV peak gradient 4 mmHg -
[2018-07-20] MEDS ORDERED: Insulin LISPRO* 1 UNITS UNIT SUBCUT ONE (22:00)
[2018-07-21] MEDS: Heparin VIAL(*) 5000 UNITS/ML VIAL (FIVE THOUSAND) SUBCUT SCH ×3 (05:31→21:48)
[2018-07-21 06:49] LABS: ABS Basophils 0 10^3/ul (0-0.2); ABS Eosinophils 0.1 10^3/ul (0-0.6); ABS Monocytes 0.5 10^3/ul (0-0.8); ABS Neutrophils 1.8 10^3/ul (1.5-7.7); ABS Nucleated RBC 0 10^3/ul; Eosinophil % 1.8 %; Hematocrit 39 % (35-47); Mean Corpuscular HGB Conc 33 g/dl (31-36); Mean Corpuscular Hemoglobin 31 pg (27-31); Mean Corpuscular Volume 94 fL (80-97); Mean Platelet Volume 9.8 fL (7.4-10.4); Nucleated Red Blood Cells % 0.1; Platelet Count 153 10^3/ul (150-450); Red Blood Count 4.18 10^6/ul (4.00-5.40); Red Cell Distribution Width 14 % (10.5-15); White Blood Count 4.4 10^3/ul (3.5-10.8)
[2018-07-21 07:08] LABS: C Reactive Protein 11.05 mg/L (<8.01); EGFR African American 118.4 (>60); EGFR Non-African American 97.8 (>60)
[2018-07-21] MEDS: Insulin GLARGINE(*) 1 UNITS UNIT SUBCUT SCH (08:21)
[2018-07-21] MEDS: Propranolol TAB* 20 MG PO SCH ×2 (08:21→20:48)
[2018-07-21] MEDS: Insulin LISPRO* 1 UNITS UNIT SUBCUT SCH ×6 (08:21→20:41)
[2018-07-21] MEDS: Docusate CAP* 100 MG PO SCH ×2 (08:22→20:42)
[2018-07-21] MEDS: Oxybutynin XL TAB* 5 MG PO SCH (08:22)
[2018-07-21] MEDS: Mirtazapine TAB* 15 MG PO SCH (08:22)
[2018-07-21] MEDS: Senna TAB PO SCH ×2 (08:22→20:42)
[2018-07-21] MEDS: predniSONE TAB* 5 MG PO SCH (08:22)
[2018-07-21] MEDS: Butalb/Acetamin/Caff TAB* 1 TAB PO PRN (08:22)
[2018-07-21] MEDS: Tiotropium CAP.INH* CAP.INH/18 MCG (USE ORDER SET !) INH SCH (08:28)
--- NOTE | 2018-07-21 08:56 | PN ---
Subjective - Subjective Reason for Note: Progress Note History: She had constipation and this was successfully treated with an enema. She is feeling better today. She slept 6 hours overnight. She denies pain or distress. Active Problems: Active Problems Hyperglycemia (Acute) R73.9 Ketoacidosis (Acute) E87.2 Semi-starvation (Acute) T73.0XXA Troponin I above reference range (Acute 09/15/14) R79.89 Weight loss (Acute) Breast cancer, left (Chronic) C50.912 Chronic obstructive lung disease (Chronic) J44.9 DVT prophylaxis (Chronic 09/15/14) [id number] Essential hypertension (Chronic) I10 Fibrosis of lung (Chronic) J84.10 Fracture of femoral neck, right (Chronic 09/15/14) S72.001A Full code status (Chronic 09/15/14) Z78.9 History of fracture of left hip (Chronic) Z87.81 History of right hip hemiarthroplasty (Chronic) Z96.641 Hypercholesteremia (Chronic) E78.0 Migraine (Chronic) G43.909 Osteoporosis (Chronic) M81.0 Rheumatoid arthritis (Chronic) M06.9 Type 1 diabetes mellitus, uncontrolled (Chronic) E10.65 Current Medications: Current Medications Acetaminophen/Butalbital/Caffeine (Fioricet Tab*) 1 tab PO Q4HR PRN PRN Reason: MIGRAINE HEADACHE Last Admin: 07/21/18 08:22 Dose: 1 tab Dextrose (D50w Syringe 50 Ml*) 12.5 gm IV PUSH .FOR FS < 60 - SS PRN PRN Reason: FS < 60 Docusate Sodium (Colace Cap*) 100 mg PO BID [facility] Last Admin: 07/21/18 08:22 Dose: 100 mg Heparin Sodium (Porcine) (Heparin Vial(*)) 5,000 units SUBCUT Q8HR [facility] Last Admin: 07/21/18 05:31 Dose: 5,000 units Sodium Chloride (Ns 0.9% 1000 Ml*) 1,000 mls @ 75 mls/hr IV PER RATE [facility] Last Admin: 07/21/18 05:33 Dose: 75 mls/hr Insulin Glargine (Lantus(*)) 12 units SUBCUT Q24H [facility] Last Admin: 07/21/18 08:21 Dose: 12 units Insulin Human Lispro (Humalog*) 0 units SUBCUT ACHS [facility]; Protocol Last Admin: 07/21/18 08:21 Dose: 2 unit Lorazepam (Ativan Tab(*)) 0.5 mg PO Q6H PRN PRN Reason: ANXIETY Magnesium Hydroxide (Milk Of Magnesia Liq*) 30 ml PO Q4H PRN PRN Reason: CONSTIPATION Magnesium Hydroxide (Milk Of Magnesia Liq*) 30 ml PO Q2H PRN PRN Reason: CONSTIPATION Mirtazapine (Remeron Tab*) 15 mg PO DAILY [facility] Last Admin: 07/21/18 08:22 Dose: 15 mg Naproxen (Naprosyn Tab*) 500 mg PO BID PRN PRN Reason: PAIN Oxybutynin Chloride (Ditropan Xl Tab*) 5 mg PO DAILY [facility] Last Admin: 07/21/18 08:22 Dose: Not Given Prednisone (Deltasone Tab*) 5 mg PO DAILY [facility] Last Admin: 07/21/18 08:22 Dose: 5 mg Propranolol HCl (Inderal Tab*) 20 mg PO BID [facility] Last Admin: 07/21/18 08:21 Dose: 20 mg Senna (Senokot Tab*) 1 tab PO BID [facility] Last Admin: 07/21/18 08:22 Dose: 1 tab Tiotropium [place] (Spiriva Cap.Inh*) 1 cap INH DAILY [facility] Last Admin: 07/21/18 08:28 Dose: 1 cap Home Medications: Home Medications Medication Instructions Recorded Confirmed Type Propranolol TAB* [Inderal TAB*] 20 mg PO BID 09/26/12 07/19/18 History Oxybutynin XL TAB* [Ditropan Xl 5 mg PO DAILY 01/25/17 07/19/18 History TAB*] Alendronate (NF) [Fosamax (NF)] 70 mg PO WEEKLY 07/19/18 07/19/18 History Butalb/Acetamin/Caff TAB* 1 tab PO Q4HR PRN 07/19/18 07/19/18 History [Fioricet TAB*] Calcium Carbonate [[id number]-Pjt-365] 500 mg PO DAILY 07/19/18 07/19/18 History Cholecalciferol (Vitamin D3) 1,000 unit PO DAILY 07/19/18 07/19/18 History [Vitamin D3] Glucagon* [Glucagen*] 1 mg IM ONCE PRN 07/19/18 07/19/18 History Insulin ASPART (NF) [Novolog (NF)] 2 unit SUBCUT AC MDD 30 unit 07/19/18 History Insulin GLARGINE(*) [Lantus(*)] 6 units SUBCUT BID MDD 30 units 07/19/18 History Insulin LISPRO* [HumaLOG*] 2 - 12 units SUBCUT AC 07/19/18 07/19/18 History LORazepam TAB(*) [Ativan 0.5 MG 0.5 mg PO Q6H PRN 07/19/18 07/19/18 History TAB (*)] Mirtazapine TAB* [Remeron TAB*] 15 mg PO DAILY 07/19/18 07/19/18 History Naproxen TAB* [Naprosyn 250 mg 500 mg PO BID PRN 07/19/18 07/19/18 History TAB*] Tiotropium CAP.INH* [Spiriva 1 cap.inh INH DAILY 07/19/18 07/19/18 History CAP.INH*] amLODIPine TAB* [Norvasc 5 mg TAB*] 5 mg PO DAILY 07/19/18 07/19/18 History predniSONE TAB* [Deltasone TAB*] 5 mg PO DAILY 07/19/18 07/19/18 History Allergies: Allergies Allergy/AdvReac Type Severity Reaction Status Date / Time amitriptyline Allergy Unknown Verified 07/19/18 13:39 Reaction Details aspirin Allergy Bleeding Verified 07/19/18 13:39 hydroxychloroquine Allergy Rash Verified 07/19/18 13:39 latex Allergy Rash Verified 07/19/18 13:39 Penicillins Allergy Unknown Verified 07/19/18 13:39 Reaction Details Objective - Vital Signs Vital Signs: Vital Signs 07/20/18 07/20/18 07/20/18 10:44 11:15 11:51 Temperature 98.9 F Pulse Rate 85 Respiratory 18 20 Rate Blood Pressure 134/79 (mmHg) O2 Sat by Pulse 95 Oximetry 07/20/18 07/20/18 07/20/18 15:42 15:44 19:17 Temperature 97.2 F 99.0 F Pulse Rate 73 81 Respiratory 18 16 16 Rate Blood Pressure 142/83 127/78 (mmHg) O2 Sat by Pulse 99 89 Oximetry 07/20/18 07/20/1807/20/19 19:25 20:00 23:25 Temperature 98.6 F Pulse Rate 78 Respiratory 17 20 Rate Blood Pressure 131/85 (mmHg) O2 Sat by Pulse 95 99 Oximetry 07/21/18 07/21/18 07/21/18 03:23 07:43 08:22 Temperature 98.8 F 99.0 F Pulse Rate 79 71 Respiratory 20 20 18 Rate Blood Pressure 123/95 149/87 (mmHg) O2 Sat by Pulse 96 100 Oximetry 07/21/18 07/21/18 08:23 08:31 Temperature Pulse Rate 64 Respiratory 18 16 Rate Blood Pressure (mmHg) O2 Sat by Pulse 100 Oximetry - Intake and Output Intake and Output: Intake & Output 07/18/18 07/19/18 07/20/18 07/21/18 11:59 11:59 11:59 11:59 Intake Total 2915 2231 Balance 2915 2231 Weight 100 lb 8 oz 100 lb 8 oz Intake: IV Fluids 2555 1411 NS (0.9%) 555 1411 Oral 360 820 Other: Estimated Void Medium Large Date of Last Bowel 07/20/2018 Movement # Bowel Movements 0 Estimated Stool Amount Large # Voids 1 1 ADLs: Meal Record Start: 07/19/18 20: 48 Freq: DAILY@0900,1400,1800 Status: Active Protocol: Created 07/19/18 20:48 System (Rec: 07/19/18 20:48 System MED-C11) Document 07/20/18 09:00 [id number] (Rec: 07/20/18 12:59 [id number] MED-C11) Document 07/20/18 14:00 [id number] (Rec: 07/20/18 14:09 [id number] MED-C09) Document 07/20/18 18:00 [id number] (Rec: 07/20/18 19:53 [id number] MED-C05) Intake and Output Start: 07/19/18 12: 44 Freq: Status: Active Protocol: Created 07/19/18 12:44 System (Rec: 07/19/18 12:44 System ED-C26) Intake and Output Start: 07/19/18 20: 48 Freq: DAILY@0600,1400,2200 Status: Active Protocol: Created 07/19/18 20:48 System (Rec: 07/19/18 20:48 System MED-C11) Document 07/19/18 22:00 [id number] (Rec: 07/19/18 22:13 [id number] MED-C13) Document 07/20/18 05:23 [id number] (Rec: 07/20/18 05:24 [id number] MED-C13) Document 07/20/18 14:00 [id number] (Rec: 07/20/18 14:09 [id number] MED-C09) Document 07/20/18 22:00 [id number] (Rec: 07/20/18 22:59 [id number] MED-C09) Document 07/21/18 06:00 [id number] (Rec: 07/21/18 06:03 [id number] MED-C11) - Physical Exam General: No Cyanosis, No Anemia, No Jaundice, No Lymphadenopathy, No Clubbing Lungs and Chest: Yes: Chest Expansion Full, Chest Expansion Symetrica, Crackles. No: Percussion Note Resonant - hyper-resonant, Vessicular Breath Sounds - emphysematous, Wheezes, Respiratory Distress, Use of Accessory Muscles Heart Rate and Rhythm: Regular Additional Cardiovascular: Yes: Normal Heart Sounds. No: Heart Murmur, Pedal Edema Abdominal Exam: Yes: Soft, Bowel Sounds Present. No: Distention, Abdominal Mass , Abdominal Tenderness Results - Results Lab Results: Laboratory Results - last 24 hr 07/20/18 07/20/18 07/20/18 09:46 09:46 11:50 WBC RBC Hgb Hct MCV MCH MCHC RDW Plt Count MPV Neut % (Auto) Lymph % (Auto) Castro % (Auto) Eos % (Auto) Baso % (Auto) Absolute Neuts (auto) Absolute Lymphs (auto) Absolute Monos (auto) Absolute Eos (auto) Absolute Basos (auto) Absolute Nucleated RBC Nucleated RBC % Sodium Potassium Chloride Carbon Dioxide Anion Gap BUN Creatinine Est GFR ( Amer) Est GFR (Non-Af Amer) BUN/Creatinine Ratio Glucose POC Glucose (mg/dL) 160 H Glucose Meter Confirm Calcium Troponin I 0.08 H* C-Reactive Protein Vitamin B12 > 1450 H TSH 1.01 Free T4 1.35 H Total T3 28 L 07/20/18 07/20/18 07/20/18 17:27 21:18 21:28 WBC RBC Hgb Hct MCV MCH MCHC RDW Plt Count MPV Neut % (Auto) Lymph % (Auto) Castro % (Auto) Eos % (Auto) Baso % (Auto) Absolute Neuts (auto) Absolute Lymphs (auto) Absolute Monos (auto) Absolute Eos (auto) Absolute Basos (auto) Absolute Nucleated RBC Nucleated RBC % Sodium Potassium Chloride Carbon Dioxide Anion Gap BUN Creatinine Est GFR ( Amer) Est GFR (Non-Af Amer) BUN/Creatinine Ratio Glucose POC Glucose (mg/dL) 147 H > 444 H* Glucose Meter Confirm 551 H* Calcium Troponin I C-Reactive Protein Vitamin B12 TSH Free T4 Total T3 07/21/18 07/21/18 07/21/18 06:12 06:12 08:13 WBC 4.4 RBC 4.18 Hgb 13.0 Hct 39 MCV 94 MCH 31 MCHC 33 RDW 14 Plt Count 153 MPV 9.8 Neut % (Auto) 40.7 Lymph % (Auto) 46.0 Castro % (Auto) 10.8 Eos % (Auto) 1.8 Baso % (Auto) 0.7 Absolute Neuts (auto) 1.8 Absolute Lymphs (auto) 2.0 Absolute Monos (auto) 0.5 Absolute Eos (auto) 0.1 Absolute Basos (auto) 0 Absolute Nucleated RBC 0 Nucleated RBC % 0.1 Sodium 141 Potassium 3.0 L Chloride 115 H Carbon Dioxide 21 L Anion Gap 5 BUN 13 Creatinine 0.59 Est GFR ( Amer) 118.4 Est GFR (Non-Af Amer) 97.8 BUN/Creatinine Ratio 22.0 H Glucose 237 H POC Glucose (mg/dL) 220 H Glucose Meter Confirm Calcium 8.0 L Troponin I C-Reactive Protein 11.05 H Vitamin B12 TSH Free T4 Total T3 Radiology Results: Patient Name: MARIAJOSE MAURICIO Medical Record#: [id number] Ordering Physician: Toni Bates MD Acct.#: [id number] : 1935 Age: 83 Sex: F Location: [address] [place] [address] - MEDICAL Exam Date: 07/20/18905 ADM Status: ADM IN Order Information: ABDOMEN (COMPLETE) 2 [facility] Accession Number: [id number] CPT: 18652 HISTORY: constipation COMPARISONS: None VIEWS: Supine and left lateral decubitus views of the abdomen. FINDINGS: BOWEL: There is gaseous distention of the stomach. There is large amount of stool throughout the colon. CALCULI: Calcific uterine fibroids are noted. BONES AND SOFT TISSUES: Degenerative changes are noted. There is diffuse osteopenia. The patient is status post internal fixation of the left femur with right hip hemiarthroplasty. OTHER FINDINGS: There are fibrotic changes of the lung bases bilaterally. There is no subphrenic gas. IMPRESSION: GASEOUS DISTENTION OF THE STOMACH. LARGE AMOUNT STOOL THROUGHOUT THE COLON. <Electronically signed by Jasper Joseph MD in [place]> 07/20/18 1014 Dictated By: Jasper Joseph MD Dictated Date/Time: 07/20/18 1014 Transcribed Date/Time: 07/20/18 1013 Copy to: CC:Toni Bates MD; Lupe Hubbard MD Imaging - [facility] - [place] [facility] [address] [address] ph ([phone]) ph ([phone]) ph ([phone]) Other Results/Reports: Conclusions The left ventricular chamber size is decreased. The estimated ejection fraction is 60-65%. D shaped septum c/w RV overload. The right ventricle is mildly dilated. The right ventricular global systolic function is mildly to moderately reduced. There is trace to mild aortic regurgitation. There is trace to mild mitral regurgitation. There is moderate tricuspid regurgitation. There is evidence of severe pulmonary hypertension estimated at 70 mmHg. Compared with prior echo of 01/26/17, no longer see LVH, EF is stable, Assessment - Problem List Assessment: Patient Problems Hyperglycemia (Acute) Ketoacidosis (Acute) Semi-starvation (Acute) Troponin I above reference range (Acute 09/15/14) Weight loss (Acute) Breast cancer, left (Chronic) Chronic obstructive lung disease (Chronic) DVT prophylaxis (Chronic 09/15/14) Essential hypertension (Chronic) Fibrosis of lung (Chronic) Fracture of femoral neck, right (Chronic 09/15/14) Full code status (Chronic 09/15/14) History of fracture of left hip (Chronic) History of right hip hemiarthroplasty (Chronic) Hypercholesteremia (Chronic) Migraine (Chronic) Osteoporosis (Chronic) Rheumatoid arthritis (Chronic) Type 1 diabetes mellitus, uncontrolled (Chronic) Plan: Type 1 diabetes mellitus, uncontrolled (Chronic)Hyperglycemia (Acute) Ketoacidosis (Acute)Semi-starvation (Acute) Her bicarbonate is risking back towards the reference range. She is now eating again. It will likely take another day to to clear her ketones. I am stopping her IVF Troponin I above reference range (Acute 09/15/14) I think this was secondary to DKA. The transthoracic echocardiogram showed no evidence of any regional wall motion abnormalities Weight loss (Acute) We will obtain an accurate weight today Breast cancer, left (Chronic) secondary diagnosis Chronic obstructive lung disease (Chronic)Fibrosis of lung (Chronic) emphysema - stable DVT prophylaxis (Chronic 09/15/14) Essential hypertension (Chronic) stable Secondary diagnoses Fracture of femoral neck, right (Chronic 09/15/14) Full code status (Chronic 09/15/14) History of fracture of left hip (Chronic) History of right hip hemiarthroplasty (Chronic) Hypercholesteremia (Chronic) Migraine (Chronic) Osteoporosis (Chronic) Rheumatoid arthritis (Chronic) I spoke to Mariajose Mauricio and called her sister Janet and son Lino. I think her mental state has improved - I think she had a mild encephalopathy.
[2018-07-21] MEDS ORDERED: Dextrose 50% Syringe 50 ML* 25 GM/50 ML SYRINGE IV PUSH PRN (09:00)
[2018-07-21] MEDS ORDERED: Insulin LISPRO* 1 UNITS UNIT SUBCUT ONE (17:35)
[2018-07-22] MEDS: Heparin VIAL(*) 5000 UNITS/ML VIAL (FIVE THOUSAND) SUBCUT SCH ×3 (05:12→20:15)
[2018-07-22 07:50] LABS: BUN/Creatinine Ratio 15.8 (8-20); EGFR African American 123.2 (>60); EGFR Non-African American 101.8 (>60); Potassium 2.8 mmol/L (3.5-5.0)
[2018-07-22] MEDS: Insulin LISPRO* 1 UNITS UNIT SUBCUT SCH ×7 (08:11→20:17)
--- NOTE | 2018-07-22 08:48 | PN ---
Subjective - Subjective Reason for Note: Progress Note Active Problems: Active Problems Hyperglycemia (Acute) R73.9 Ketoacidosis (Acute) E87.2 Semi-starvation (Acute) T73.0XXA Troponin I above reference range (Acute 09/15/14) R79.89 Weight loss (Acute) Breast cancer, left (Chronic) C50.912 Chronic obstructive lung disease (Chronic) J44.9 DVT prophylaxis (Chronic 09/15/14) [id number] Essential hypertension (Chronic) I10 Fibrosis of lung (Chronic) J84.10 Fracture of femoral neck, right (Chronic 09/15/14) S72.001A Full code status (Chronic 09/15/14) Z78.9 History of fracture of left hip (Chronic) Z87.81 History of right hip hemiarthroplasty (Chronic) Z96.641 Hypercholesteremia (Chronic) E78.0 Migraine (Chronic) G43.909 Osteoporosis (Chronic) M81.0 Rheumatoid arthritis (Chronic) M06.9 Type 1 diabetes mellitus, uncontrolled (Chronic) E10.65 Current Medications: Current Medications Acetaminophen/Butalbital/Caffeine (Fioricet Tab*) 1 tab PO Q4HR PRN PRN Reason: MIGRAINE HEADACHE Last Admin: 07/21/18 08:22 Dose: 1 tab Dextrose (D50w Syringe 50 Ml*) 12.5 gm IV PUSH .FOR FS < 60 - SS PRN PRN Reason: FS < 60 Dextrose (D50w Syringe 50 Ml*) 12.5 gm IV PUSH .FOR FS < 60 - SS PRN PRN Reason: FS < 60 Docusate Sodium (Colace Cap*) 100 mg PO BID [facility] Last Admin: 07/21/18 20:42 Dose: 100 mg Heparin Sodium (Porcine) (Heparin Vial(*)) 5,000 units SUBCUT Q8HR [facility] Last Admin: 07/22/18 05:12 Dose: 5,000 units Insulin Glargine (Lantus(*)) 12 units SUBCUT Q24H [facility] Last Admin: 07/21/18 08:21 Dose: 12 units Insulin Human Lispro (Humalog*) 0 units SUBCUT ACHS [facility]; Protocol Last Admin: 07/22/18 08:11 Dose: Not Given Insulin Human Lispro (Humalog*) 1 units SUBCUT AC [facility]; Protocol Last Admin: 07/21/18 18:00 Dose: 1 unit Lorazepam (Ativan Tab(*)) 0.5 mg PO Q6H PRN PRN Reason: ANXIETY Last Admin: 07/21/18 20:42 Dose: 0.5 mg Magnesium Hydroxide (Milk Of Magnesia Liq*) 30 ml PO Q4H PRN PRN Reason: CONSTIPATION Magnesium Hydroxide (Milk Of Magnesia Liq*) 30 ml PO Q2H PRN PRN Reason: CONSTIPATION Mirtazapine (Remeron Tab*) 15 mg PO DAILY [facility] Last Admin: 07/21/18 08:22 Dose: 15 mg Naproxen (Naprosyn Tab*) 500 mg PO BID PRN PRN Reason: PAIN Oxybutynin Chloride (Ditropan Xl Tab*) 5 mg PO DAILY [facility] Last Admin: 07/21/18 08:22 Dose: Not Given Prednisone (Deltasone Tab*) 5 mg PO DAILY [facility] Last Admin: 07/21/18 08:22 Dose: 5 mg Propranolol HCl (Inderal Tab*) 20 mg PO BID [facility] Last Admin: 07/21/18 20:48 Dose: 20 mg Senna (Senokot Tab*) 1 tab PO BID [facility] Last Admin: 07/21/18 20:42 Dose: 1 tab Tiotropium [place] (Spiriva Cap.Inh*) 1 cap INH DAILY [facility] Last Admin: 07/21/18 08:28 Dose: 1 cap Home Medications: Home Medications Medication Instructions Recorded Confirmed Type Propranolol TAB* [Inderal TAB*] 20 mg PO BID 09/26/12 07/19/18 History Oxybutynin XL TAB* [Ditropan Xl 5 mg PO DAILY 01/25/17 07/19/18 History TAB*] Alendronate (NF) [Fosamax (NF)] 70 mg PO WEEKLY 07/19/18 07/19/18 History Butalb/Acetamin/Caff TAB* 1 tab PO Q4HR PRN 07/19/18 07/19/18 History [Fioricet TAB*] Calcium Carbonate [[id number]] 500 mg PO DAILY 07/19/18 07/19/18 History Cholecalciferol (Vitamin D3) 1,000 unit PO DAILY 07/19/18 07/19/18 History [Vitamin D3] Glucagon* [Glucagen*] 1 mg IM ONCE PRN 07/19/18 07/19/18 History Insulin ASPART (NF) [Novolog (NF)] 2 unit SUBCUT AC MDD 30 unit 07/19/18 History Insulin GLARGINE(*) [Lantus(*)] 6 units SUBCUT BID MDD 30 units 07/19/18 History Insulin LISPRO* [HumaLOG*] 2 - 12 units SUBCUT AC 07/19/18 07/19/18 History LORazepam TAB(*) [Ativan 0.5 MG 0.5 mg PO Q6H PRN 07/19/18 07/19/18 History TAB (*)] Mirtazapine TAB* [Remeron TAB*] 15 mg PO DAILY 07/19/18 07/19/18 History Naproxen TAB* [Naprosyn 250 mg 500 mg PO BID PRN 07/19/18 07/19/18 History TAB*] Tiotropium CAP.INH* [Spiriva 1 cap.inh INH DAILY 07/19/18 07/19/18 History CAP.INH*] amLODIPine TAB* [Norvasc 5 mg TAB*] 5 mg PO DAILY 07/19/18 07/19/18 History predniSONE TAB* [Deltasone TAB*] 5 mg PO DAILY 07/19/18 07/19/18 History Allergies: Allergies Allergy/AdvReac Type Severity Reaction Status Date / Time amitriptyline Allergy Unknown Verified 07/19/18 13:39 Reaction Details aspirin Allergy Bleeding Verified 07/19/18 13:39 hydroxychloroquine Allergy Rash Verified 07/19/18 13:39 latex Allergy Rash Verified 07/19/18 13:39 Penicillins Allergy Unknown Verified 07/19/18 13:39 Reaction Details Objective - Vital Signs Vital Signs: Vital Signs 07/21/18 07/21/18 07/21/18 09:15 11:32 16:17 Temperature 98.3 F 97.3 F Pulse Rate 84 100 Respiratory 18 20 24 Rate Blood Pressure 121/77 135/85 (mmHg) O2 Sat by Pulse 99 93 Oximetry 07/21/18 07/21/18 07/21/18 16:26 19:47 20:00 Temperature 97.6 F Pulse Rate 88 91 Respiratory 20 20 16 Rate Blood Pressure 158/98 (mmHg) O2 Sat by Pulse 98 Oximetry 07/21/18 07/21/18 07/21/18 20:42 23:06 23:36 Temperature 99.7 F Pulse Rate 81 Respiratory 18 20 16 Rate Blood Pressure 153/91 (mmHg) O2 Sat by Pulse 95 Oximetry 07/22/18 07/22/18 03:10 06:38 Temperature 98.1 F 97.5 F Pulse Rate 75 85 Respiratory 20 20 Rate Blood Pressure 155/97 139/103 (mmHg) O2 Sat by Pulse 98 100 Oximetry - Intake and Output Intake and Output: Intake & Output 07/19/18 07/20/18 07/21/18 07/22/18 11:59 11:59 11:59 11:59 Intake Total 2915 2706 650 Balance 2915 2706 650 Weight 100 lb 8 oz 100 lb 8 oz 102 lb 11.2 oz Intake: IV Fluids 2555 1411 NS (0.9%) 555 1411 Oral 360 1295 650 Other: Estimated Void Medium Medium Large Date of Last Bowel 07/20/2018 Movement # Bowel Movements 0 0 Estimated Stool Amount Large Large # Voids 1 1 1 ADLs: Meal Record Start: 07/19/18 20: 48 Freq: DAILY@0900,1400,1800 Status: Active Protocol: Created 07/19/18 20:48 System (Rec: 07/19/18 20:48 System MED-C11) Document 07/20/18 09:00 [id number] (Rec: 07/20/18 12:59 [id number] MED-C11) Document 07/20/18 14:00 [id number] (Rec: 07/20/18 14:09 [id number] MED-C09) Document 07/20/18 18:00 [id number] (Rec: 07/20/18 19:53 [id number] MED-C05) Document 07/21/18 09:00 [id number] (Rec: 07/21/18 10:56 [id number] MED-C11) Document 07/21/18 14:00 [id number] (Rec: 07/21/18 15:39 [id number] MED-M16) Document 07/21/18 18:00 [id number] (Rec: 07/21/18 20:49 [id number] MED-C02) Intake and Output Start: 07/19/18 12: 44 Freq: Status: Active Protocol: Created 01/22/19 12:44 System (Rec: 07/19/18 12:44 System ED-C26) Intake and Output Start: 07/19/18 20: 48 Freq: DAILY@0600,1400,2200 Status: Active Protocol: Created 07/19/18 20:48 System (Rec: 07/19/18 20:48 System MED-C11) Document 07/19/18 22:00 [id number] (Rec: 07/19/18 22:13 [id number] MED-C13) Document 07/20/18 05:23 [id number] (Rec: 07/20/18 05:24 [id number] MED-C13) Document 07/20/18 14:00 [id number] (Rec: 07/20/18 14:09 [id number] MED-C09) Document 07/20/18 22:00 [id number] (Rec: 07/20/18 22:59 [id number] MED-C09) Document 07/21/18 06:00 [id number] (Rec: 07/21/18 06:03 [id number] MED-C11) Document 07/21/18 14:00 [id number] (Rec: 07/21/18 14:07 [id number] MED-C11) Document 07/21/18 21:38 [id number] (Rec: 07/21/18 21:39 [id number] MED-C11) Document 07/22/18 05:50 [id number] (Rec: 07/22/18 05:50 [id number] MED-C11) Results - Results Lab Results: Laboratory Results - last 24 hr 07/21/18 07/21/18 07/21/18 11:16 16:28 16:47 Sodium Potassium Chloride Carbon Dioxide Anion Gap BUN Creatinine Est GFR ( Amer) Est GFR (Non-Af Amer) BUN/Creatinine Ratio Glucose POC Glucose (mg/dL) 268 H > 444 H* Glucose Meter Confirm 513 H* Calcium 07/21/18 07/22/18 07/22/18 20:18 07:09 07:50 Sodium 147 H Potassium 2.8 L Chloride 118 H Carbon Dioxide 22 Anion Gap 7 BUN 9 Creatinine 0.57 Est GFR ( Amer) 123.2 Est GFR (Non-Af Amer) 101.8 BUN/Creatinine Ratio 15.8 Glucose 116 H POC Glucose (mg/dL) 350 H 61 L Glucose Meter Confirm Calcium 8.0 L Assessment - Problem List Assessment: Patient Problems Hyperglycemia (Acute) Ketoacidosis (Acute) Semi-starvation (Acute) Troponin I above reference range (Acute 09/15/14) Weight loss (Acute) Breast cancer, left (Chronic) Chronic obstructive lung disease (Chronic) DVT prophylaxis (Chronic 09/15/14) Essential hypertension (Chronic) Fibrosis of lung (Chronic) Fracture of femoral neck, right (Chronic 09/15/14) Full code status (Chronic 09/15/14) History of fracture of left hip (Chronic) History of right hip hemiarthroplasty (Chronic) Hypercholesteremia (Chronic) Migraine (Chronic) Osteoporosis (Chronic) Rheumatoid arthritis (Chronic) Type 1 diabetes mellitus, uncontrolled (Chronic)
--- NOTE | 2018-07-22 09:03 | PN ---
Subjective - Subjective Reason for Note: Discharge Note History: Contingent discharge summary She was hyperglycemic yesterday (>500) and I gave her 5 units of lispro insulin (the previous day 3 units had been insufficient). This morning she had a FS of 61 mg/dl, this corrected to 167 mg/dl with apple juice. 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 She was able to answer questions, drink water, and follow commands. However, she wasn't fully conversant. She declined PT yesterday. 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 She has no focal symptoms this morning. She would like to go home and is not interested in skilled rehab. Active Problems: Active Problems Hyperglycemia (Acute) R73.9 Ketoacidosis (Acute) E87.2 Semi-starvation (Acute) T73.0XXA Troponin I above reference range (Acute 09/15/14) R79.89 Weight loss (Acute) Breast cancer, left (Chronic) C50.912 Chronic obstructive lung disease (Chronic) J44.9 DVT prophylaxis (Chronic 09/15/14) [id number] Essential hypertension (Chronic) I10 Fibrosis of lung (Chronic) J84.10 Fracture of femoral neck, right (Chronic 09/15/14) S72.001A Full code status (Chronic 09/15/14) Z78.9 History of fracture of left hip (Chronic) Z87.81 History of right hip hemiarthroplasty (Chronic) Z96.641 Hypercholesteremia (Chronic) E78.0 Migraine (Chronic) G43.909 Osteoporosis (Chronic) M81.0 Rheumatoid arthritis (Chronic) M06.9 Type 1 diabetes mellitus, uncontrolled (Chronic) E10.65 Current Medications: Current Medications Acetaminophen/Butalbital/Caffeine (Fioricet Tab*) 1 tab PO Q4HR PRN PRN Reason: MIGRAINE HEADACHE Last Admin: 07/21/18 08:22 Dose: 1 tab Dextrose (D50w Syringe 50 Ml*) 12.5 gm IV PUSH .FOR FS < 60 - SS PRN PRN Reason: FS < 60 Dextrose (D50w Syringe 50 Ml*) 12.5 gm IV PUSH .FOR FS < 60 - SS PRN PRN Reason: FS < 60 Docusate Sodium (Colace Cap*) 100 mg PO BID [facility] Last Admin: 07/21/18 20:42 Dose: 100 mg Heparin Sodium (Porcine) (Heparin Vial(*)) 5,000 units SUBCUT Q8HR [facility] Last Admin: 07/22/18 05:12 Dose: 5,000 units Insulin Glargine (Lantus(*)) 9 units SUBCUT Q24H [facility] Insulin Human Lispro (Humalog*) 0 units SUBCUT ACHS [facility]; Protocol Last Admin: 07/22/18 08:11 Dose: Not Given Insulin Human Lispro (Humalog*) 1 units SUBCUT AC [facility]; Protocol Last Admin: 07/21/18 18:00 Dose: 1 unit Lorazepam (Ativan Tab(*)) 0.5 mg PO Q6H PRN PRN Reason: ANXIETY Last Admin: 07/21/18 20:42 Dose: 0.5 mg Magnesium Hydroxide (Milk Of Magnesia Liq*) 30 ml PO Q4H PRN PRN Reason: CONSTIPATION Magnesium Hydroxide (Milk Of Magnesia Liq*) 30 ml PO Q2H PRN PRN Reason: CONSTIPATION Mirtazapine (Remeron Tab*) 15 mg PO DAILY [facility] Last Admin: 07/21/18 08:22 Dose: 15 mg Naproxen (Naprosyn Tab*) 500 mg PO BID PRN PRN Reason: PAIN Oxybutynin Chloride (Ditropan Xl Tab*) 5 mg PO DAILY [facility] Last Admin: 07/21/18 08:22 Dose: Not Given Potassium Chloride (Klor Con Er Tab*) 20 meq PO BID [facility] Prednisone (Deltasone Tab*) 5 mg PO DAILY [facility] Last Admin: 07/21/18 08:22 Dose: 5 mg Propranolol HCl (Inderal Tab*) 20 mg PO BID [facility] Last Admin: 07/21/18 20:48 Dose: 20 mg Senna (Senokot Tab*) 1 tab PO BID [facility] Last Admin: 07/21/18 20:42 Dose: 1 tab Tiotropium [place] (Spiriva Cap.Inh*) 1 cap INH DAILY [facility] Last Admin: 07/21/18 08:28 Dose: 1 cap - Review of Systems Constitutional Symptoms: Yes: Fatigue, Fever Pulmonary: Negative: Cough, Sputum, Respiratory Distress Cardiology: Positive: Swelling of Ankles Negative: Chest Pain, Palpitations Gastroenterology: Negative: Abdominal Pain, Nausea, Vomiting, Constipation, Diarrhea Neurology: Negative: Headache Home Medications: Home Medications Medication Instructions Recorded Confirmed Type Propranolol TAB* [Inderal TAB*] 20 mg PO BID 09/26/12 07/19/18 History Oxybutynin XL TAB* [Ditropan Xl 5 mg PO DAILY 01/25/17 07/19/18 History TAB*] Alendronate (NF) [Fosamax (NF)] 70 mg PO WEEKLY 07/19/18 07/19/18 History Butalb/Acetamin/Caff TAB* 1 tab PO Q4HR PRN 07/19/18 07/19/18 History [Fioricet TAB*] Calcium Carbonate [[id number]-528] 500 mg PO DAILY 07/19/18 07/19/18 History Cholecalciferol (Vitamin D3) 1,000 unit PO DAILY 07/19/18 07/19/18 History [Vitamin D3] Glucagon* [Glucagen*] 1 mg IM ONCE PRN 07/19/18 07/19/18 History Insulin ASPART (NF) [Novolog (NF)] 2 unit SUBCUT AC MDD 30 unit 07/19/18 History Insulin GLARGINE(*) [Lantus(*)] 6 units SUBCUT BID [facility] 30 units 07/19/18 History Insulin LISPRO* [HumaLOG*] 2 - 12 units SUBCUT AC 07/19/18 07/19/18 History LORazepam TAB(*) [Ativan 0.5 MG 0.5 mg PO Q6H PRN 07/19/18 07/19/18 History TAB (*)] Mirtazapine TAB* [Remeron TAB*] 15 mg PO DAILY 07/19/18 07/19/18 History Naproxen TAB* [Naprosyn 250 mg 500 mg PO BID PRN 07/19/18 07/19/18 History TAB*] Tiotropium CAP.INH* [Spiriva 1 cap.inh INH DAILY 07/19/18 07/19/18 History CAP.INH*] amLODIPine TAB* [Norvasc 5 mg TAB*] 5 mg PO DAILY 07/19/18 07/19/18 History predniSONE TAB* [Deltasone TAB*] 5 mg PO DAILY 07/19/18 07/19/18 History Potassium Chlor TAB* [Klor Con ER 20 meq PO BID #14 tab.er 07/22/18 Rx TAB*] Allergies: Allergies Allergy/AdvReac Type Severity Reaction Status Date / Time amitriptyline Allergy Unknown Verified 07/19/18 13:39 Reaction Details aspirin Allergy Bleeding Verified 07/19/18 13:39 hydroxychloroquine Allergy Rash Verified 07/19/18 13:39 latex Allergy Rash Verified 07/19/18 13:39 Penicillins Allergy Unknown Verified 07/19/18 13:39 Reaction Details Objective - Vital Signs Vital Signs: Vital Signs 07/21/18 07/21/18 07/21/18 09:15 11:32 16:17 Temperature 98.3 F 97.3 F Pulse Rate 84 100 Respiratory 18 20 24 Rate Blood Pressure 121/77 135/85 (mmHg) O2 Sat by Pulse 99 93 Oximetry 07/21/18 07/21/18 07/21/18 16:26 19:47 20:00 Temperature 97.6 F Pulse Rate 88 91 Respiratory 20 20 16 Rate Blood Pressure 158/98 (mmHg) O2 Sat by Pulse 98 Oximetry 07/21/18 07/21/18 07/21/18 20:42 23:06 23:36 Temperature 99.7 F Pulse Rate 81 Respiratory 18 20 16 Rate Blood Pressure 153/91 (mmHg) O2 Sat by Pulse 95 Oximetry 07/22/18 07/22/18 03:10 06:38 Temperature 98.1 F 97.5 F Pulse Rate 75 85 Respiratory 20 20 Rate Blood Pressure 155/97 139/103 (mmHg) O2 Sat by Pulse 98 100 Oximetry - Intake and Output Intake and Output: Intake & Output 07/19/18 07/20/18 07/21/18 07/22/18 11:59 11:59 11:59 11:59 Intake Total 2915 2706 650 Balance 2915 2706 650 Weight 100 lb 8 oz 100 lb 8 oz 102 lb 11.2 oz Intake: IV Fluids 2555 1411 NS (0.9%) 555 1411 Oral 360 1295 650 Other: Estimated Void Medium Medium Large Date of Last Bowel 07/20/2018 Movement # Bowel Movements 0 0 Estimated Stool Amount Large Large # Voids 1 1 1 ADLs: Meal Record Start: 07/19/18 20: 48 Freq: DAILY@0900,1400,1800 Status: Active Protocol: Created 07/19/18 20:48 System (Rec: 07/19/18 20:48 System MED-C11) Document 07/20/18 09:00 [id number] (Rec: 07/20/18 12:59 [id number] MED-C11) Document 07/20/18 14:00 [id number] (Rec: 07/20/18 14:09 [id number] MED-C09) Document 07/20/18 18:00 [id number] (Rec: 07/20/18 19:53 [id number] MED-C05) Document 07/21/18 09:00 [id number] (Rec: 07/21/18 10:56 [id number] MED-C11) Document 07/21/18 14:00 [id number] (Rec: 07/21/18 15:39 [id number] MED-M16) Document 07/21/18 18:00 [id number] (Rec: 07/21/18 20:49 [id number] MED-C02) Intake and Output Start: 07/19/18 12: 44 Freq: Status: Active Protocol: Created 07/19/18 12:44 System (Rec: 07/19/18 12:44 System ED-C26) Intake and Output Start: 07/19/18 20: 48 Freq: DAILY@0600,1400,2200 Status: Active Protocol: Created 07/19/18 20:48 System (Rec: 07/19/18 20:48 System MED-C11) Document 07/19/18 22:00 [id number] (Rec: 07/19/18 22:13 [id number] MED-C13) Document 07/20/18 05:23 [id number] (Rec: 07/20/18 05:24 [id number] MED-C13) Document 07/20/18 14:00 [id number] (Rec: 07/20/18 14:09 [id number] MED-C09) Document 07/20/18 22:00 [id number] (Rec: 07/20/18 22:59 [id number] MED-C09) Document 07/21/18 06:00 [id number] (Rec: 07/21/18 06:03 [id number] MED-C11) Document 07/21/18 14:00 [id number] (Rec: 07/21/18 14:07 [id number] MED-C11) Document 07/21/18 21:38 [id number] (Rec: 07/21/18 21:39 [id number] MED-C11) Document 07/22/18 05:50 [id number] (Rec: 07/22/18 05:50 [id number] MED-C11) - Physical Exam General Physical Exam Comment: Her speech is normal, but she is not especially conversational. She moves all limbs to command and her cranial nerves are intact General: No Cyanosis, No Anemia, No Jaundice, No Clubbing Lungs and Chest: Yes: Chest Expansion Full, Chest Expansion Symetrica, Percussion Note Resonant - hyperresonant, Crackles. No: Vessicular Breath Sounds, Wheezes, Respiratory Distress, Use of Accessory Muscles Heart Rate and Rhythm: Regular Additional Cardiovascular: Yes: Normal Heart Sounds. No: Heart Murmur, Pedal Edema Abdominal Exam: Yes: Soft, Bowel Sounds Present. No: Distention, Abdominal Mass , Abdominal Tenderness Results - Results Lab Results: Laboratory Results - last 24 hr 07/21/18 07/21/18 07/21/18 11:16 16:28 16:47 Sodium Potassium Chloride Carbon Dioxide Anion Gap BUN Creatinine Est GFR ( Amer) Est GFR (Non-Af Amer) BUN/Creatinine Ratio Glucose POC Glucose (mg/dL) 268 H > 444 H* Glucose Meter Confirm 513 H* Calcium 07/21/18 07/22/18 07/22/18 20:18 07:09 07:50 Sodium 147 H Potassium 2.8 L Chloride 118 H Carbon Dioxide 22 Anion Gap 7 BUN 9 Creatinine 0.57 Est GFR ( Amer) 123.2 Est GFR (Non-Af Amer) 101.8 BUN/Creatinine Ratio 15.8 Glucose 116 H POC Glucose (mg/dL) 350 H 61 L Glucose Meter Confirm Calcium 8.0 L 07/22/18 08:31 Sodium Potassium Chloride Carbon Dioxide Anion Gap BUN Creatinine Est GFR ( Amer) Est GFR (Non-Af Amer) BUN/Creatinine Ratio Glucose POC Glucose (mg/dL) 167 H Glucose Meter Confirm Calcium Assessment - Problem List Assessment: Patient Problems Hyperglycemia (Acute) Ketoacidosis (Acute) Semi-starvation (Acute) Troponin I above reference range (Acute 09/15/14) Weight loss (Acute) Breast cancer, left (Chronic) Chronic obstructive lung disease (Chronic) DVT prophylaxis (Chronic 09/15/14) Essential hypertension (Chronic) Fibrosis of lung (Chronic) Fracture of femoral neck, right (Chronic 09/15/14) Full code status (Chronic 09/15/14) History of fracture of left hip (Chronic) History of right hip hemiarthroplasty (Chronic) Hypercholesteremia (Chronic) Migraine (Chronic) Osteoporosis (Chronic) Rheumatoid arthritis (Chronic) Type 1 diabetes mellitus, uncontrolled (Chronic) Plan: Hyperglycemia (Acute)Ketoacidosis (Acute) Semi-starvation (Acute) Type 1 diabetes mellitus, uncontrolled (Chronic) This resolved once her constipation was sorted out. She has been hyperglycemic 2 successive afternoons, despite carb counting. She remains sensitive to insulin. I note that she is no longer acidotic and she is well hydrated. She is eating and drinking. She felt thirsty this morning. She is requiring no medical therapy today. I note she is hypokalemic and I am treating this Troponin I above reference range (Acute 09/15/14) This was secondary to DKA Weight loss (Acute) Her weight is stable secondary diagnoses: Breast cancer, left (Chronic) Chronic obstructive lung disease (Chronic) DVT prophylaxis (Chronic 09/15/14) Essential hypertension (Chronic) Fibrosis of lung (Chronic) Fracture of femoral neck, right (Chronic 09/15/14) Full code status (Chronic 09/15/14) History of fracture of left hip (Chronic) History of right hip hemiarthroplasty (Chronic) Hypercholesteremia (Chronic) Migraine (Chronic) Osteoporosis (Chronic) Rheumatoid arthritis (Chronic) I discussed her care with both her son Lino and sister Janet. I suspect she had mild hypoglycemia this morning and that she will be more focused after breakfast. If she is able to transfer/walk today with a walker, she can go home. Her son Lino is staying with her. He understands her glycemic control in great detail. However, if she is not safe for discharge, we may have to give her another 24 hours in the hospital for some more PT/OT.
[2018-07-22] MEDS: Tiotropium CAP.INH* CAP.INH/18 MCG (USE ORDER SET !) INH SCH (09:29)
[2018-07-22] MEDS: Propranolol TAB* 20 MG PO SCH ×2 (10:11→20:15)
[2018-07-22] MEDS: Mirtazapine TAB* 15 MG PO SCH (10:12)
[2018-07-22] MEDS: predniSONE TAB* 5 MG PO SCH (10:12)
[2018-07-22] MEDS: Oxybutynin XL TAB* 5 MG PO SCH (10:12)
[2018-07-22] MEDS: Insulin GLARGINE(*) 1 UNITS UNIT SUBCUT SCH (10:13)
[2018-07-22] MEDS: Potassium Chloride LIQUID* 20 MEQ PACKET PO SCH ×2 (10:14→20:15)
[2018-07-22] MEDS: Senna TAB PO SCH ×2 (10:21→20:15)
[2018-07-22] MEDS: Docusate CAP* 100 MG PO SCH ×2 (10:21→20:15)
[2018-07-22] MEDS: Butalb/Acetamin/Caff TAB* 1 TAB PO PRN (14:18)
[2018-07-23] MEDS: Heparin VIAL(*) 5000 UNITS/ML VIAL (FIVE THOUSAND) SUBCUT SCH ×3 (05:07→20:04)
[2018-07-23] MEDS: Tiotropium CAP.INH* CAP.INH/18 MCG (USE ORDER SET !) INH SCH (07:57)
[2018-07-23] MEDS: Insulin GLARGINE(*) 1 UNITS UNIT SUBCUT SCH (08:04)
[2018-07-23] MEDS: Propranolol TAB* 20 MG PO SCH ×2 (08:05→20:03)
[2018-07-23] MEDS: Oxybutynin XL TAB* 5 MG PO SCH (08:05)
[2018-07-23] MEDS: Potassium Chloride LIQUID* 20 MEQ PACKET PO SCH ×2 (08:05→20:02)
[2018-07-23] MEDS: Insulin LISPRO* 1 UNITS UNIT SUBCUT SCH ×8 (08:05→20:02)
[2018-07-23] MEDS: predniSONE TAB* 5 MG PO SCH (08:06)
[2018-07-23] MEDS: Mirtazapine TAB* 15 MG PO SCH (08:06)
[2018-07-23] MEDS: Senna TAB PO SCH ×2 (08:07→20:03)
[2018-07-23] MEDS: Docusate CAP* 100 MG PO SCH ×2 (08:07→20:03)
[2018-07-24] MEDS: Heparin VIAL(*) 5000 UNITS/ML VIAL (FIVE THOUSAND) SUBCUT SCH ×3 (05:01→20:10)
[2018-07-24 06:10] LABS: Hematocrit 39 % (35-47); Mean Corpuscular HGB Conc 33 g/dl (31-36); Mean Corpuscular Hemoglobin 32 pg (27-31); Mean Corpuscular Volume 95 fL (80-97); Mean Platelet Volume 10.4 fL (7.4-10.4); Platelet Count 130 10^3/ul (150-450); Red Blood Count 4.14 10^6/ul (4.00-5.40); Red Cell Distribution Width 14 % (10.5-15); White Blood Count 4.7 10^3/ul (3.5-10.8)
[2018-07-24 06:30] LABS: Albumin 2.5 g/dL (3.2-5.2); Albumin/Globulin Ratio 0.8 (1-3); BUN/Creatinine Ratio 21.7 (8-20); Calcium 8.2 mg/dL (8.6-10.3); EGFR African American 116.1 (>60); EGFR Non-African American 95.9 (>60); Globulin 3.1 g/dL (2-4); Magnesium 1.6 mg/dL (1.9-2.7); Phosphorus 2.1 mg/dL (2.5-5.0); Potassium 3.8 mmol/L (3.5-5.0); Total Bilirubin 0.5 mg/dL (0.2-1.0); Total Protein 5.6 g/dL (6.4-8.9)
[2018-07-24] MEDS: Tiotropium CAP.INH* CAP.INH/18 MCG (USE ORDER SET !) INH SCH (07:45)
[2018-07-24] MEDS: Mirtazapine TAB* 15 MG PO SCH (09:50)
[2018-07-24] MEDS: Docusate CAP* 100 MG PO SCH ×3 (09:50→20:11)
[2018-07-24] MEDS: Senna TAB PO SCH ×3 (09:50→20:12)
[2018-07-24] MEDS: Propranolol TAB* 20 MG PO SCH ×2 (09:50→20:10)
[2018-07-24] MEDS: Potassium Chloride LIQUID* 20 MEQ PACKET PO SCH ×2 (09:50→20:09)
[2018-07-24] MEDS: predniSONE TAB* 5 MG PO SCH (09:50)
[2018-07-24] MEDS: Oxybutynin XL TAB* 5 MG PO SCH (09:50)
[2018-07-24] MEDS: Insulin GLARGINE(*) 1 UNITS UNIT SUBCUT SCH (09:51)
[2018-07-24] MEDS: Insulin LISPRO* 1 UNITS UNIT SUBCUT SCH ×7 (09:51→20:08)
[2018-07-24] MEDS: Butalb/Acetamin/Caff TAB* 1 TAB PO PRN (12:34)
[2018-07-24] MEDS: amLODIPine TAB* 5 MG PO SCH (12:35)
[2018-07-24] MEDS ORDERED: Magnesium Sulfate 2 GM IV* 2 GM/50 ML BAG IVPB ONE (21:57)
--- NOTE | 2018-07-25 00:21 | PN ---
PROGRESS NOTE: DATE OF VISIT: 07/24/18 HISTORY: The patient has been having diarrhea. The nurses' request a test for C. diff. She has no other complaints. She has not been out of bed to walk. The nurses note that she seems confused at times. She continues to wear oxygen. PHYSICAL EXAMINATION: Vital Signs: Blood pressure since yesterday has been in the 130-176/80-101 range. Chest shows bibasilar rales. Heart: Normal S1, S2. Grade 1/6 systolic and diastolic murmurs. Abdomen is soft and nontender. There are no masses or organomegaly. Extremities are without edema. She continues to have weak hip flexion, raising of the legs off of bed. LABORATORY DATA: CBC: WBC 4.7, H and H 13/39, MCV 95, PLT 130K. Chemistry: Sodium 140, potassium 3.8, chloride 109, CO2 25, BUN/creatinine 13/0.6, glucose 288. Rest of her comprehensive metabolic panel shows a phosphorus slightly low at 2.1, magnesium slightly low at 1.6, AST 54. Fingerstick blood sugars since yesterday have been in the 80 to 336. IMPRESSION: 1. Type 1 diabetes mellitus. Her blood sugars continued to be quite labile. 2. Hypertension. She was not started on amlodipine when she came into the hospital. This is something she takes at home. I will restart it. 3. Diarrhea. I will order stool for Clostridium difficile. 4. Weakness. I wrote orders for the nurses to walk her 3 times a day. 5. Mild hypomagnesemia. I will replete her magnesium with IV magnesium. I am concerned that oral magnesium would give her more diarrhea. [id number]/[facility] #: [id number] [facility]
[2018-07-25] MEDS ORDERED: Insulin LISPRO* 1 UNITS UNIT SUBCUT ONE ×2 (04:26→04:34)
[2018-07-25] MEDS: Heparin VIAL(*) 5000 UNITS/ML VIAL (FIVE THOUSAND) SUBCUT SCH ×3 (04:39→20:56)
[2018-07-25] MEDS: Tiotropium CAP.INH* CAP.INH/18 MCG (USE ORDER SET !) INH SCH (07:52)
--- NOTE | 2018-07-25 08:23 | PN ---
Subjective - Subjective Reason for Note: Progress Note History: She is too weak to go home owing to weakness - couldn't do ADLS and secondly her O2 was desaturating. She would like to go home. Today she has no new pain and is not in any acute distress. Her glucose levels remain labile and mostly high. PT/OT thus far recommend a period of acute rehab at a SNF - this is not a popular idea with the patient. She had some diarrhea - she doesn't remember this overnight. She denies any focal pain. Active Problems: Active Problems Hyperglycemia (Acute) R73.9 Troponin I above reference range (Acute 09/15/14) R79.89 Weakness generalized (Acute) R53.1 Weight loss (Acute) Breast cancer, left (Chronic) C50.912 Chronic obstructive lung disease (Chronic) J44.9 DVT prophylaxis (Chronic 09/15/14) [id number] Essential hypertension (Chronic) I10 Fibrosis of lung (Chronic) J84.10 Fracture of femoral neck, right (Chronic 09/15/14) S72.001A Full code status (Chronic 09/15/14) Z78.9 History of fracture of left hip (Chronic) Z87.81 History of right hip hemiarthroplasty (Chronic) Z96.641 Hypercholesteremia (Chronic) E78.0 Migraine (Chronic) G43.909 Osteoporosis (Chronic) M81.0 Rheumatoid arthritis (Chronic) M06.9 Semi-starvation (Chronic) T73.0XXA Type 1 diabetes mellitus, uncontrolled (Chronic) E10.65 Current Medications: Current Medications Acetaminophen/Butalbital/Caffeine (Fioricet Tab*) 1 tab PO Q4HR PRN PRN Reason: MIGRAINE HEADACHE Last Admin: 07/24/18 12:34 Dose: 1 tab Amlodipine Besylate (Norvasc Tab*) 5 mg PO DAILY [facility] Last Admin: 07/24/18 12:35 Dose: 5 mg Dextrose (D50w Syringe 50 Ml*) 12.5 gm IV PUSH .FOR FS < 60 - SS PRN PRN Reason: FS < 60 Dextrose (D50w Syringe 50 Ml*) 12.5 gm IV PUSH .FOR FS < 60 - SS PRN PRN Reason: FS < 60 Docusate Sodium (Colace Cap*) 100 mg PO BID [facility] Last Admin: 07/24/18 20:11 Dose: Not Given Heparin Sodium (Porcine) (Heparin Vial(*)) 5,000 units SUBCUT Q8HR [facility] Last Admin: 07/25/18 04:39 Dose: 5,000 units Insulin Glargine (Lantus(*)) 15 units SUBCUT Q24H [facility] Insulin Human Lispro (Humalog*) 0 units SUBCUT ACHS [facility]; Protocol Last Admin: 07/24/18 20:08 Dose: 4 unit Insulin Human Lispro (Humalog*) 1 units SUBCUT AC [facility]; Protocol Last Admin: 07/24/18 18:45 Dose: 2 unit Lorazepam (Ativan Tab(*)) 0.5 mg PO Q6H PRN PRN Reason: ANXIETY Last Admin: 07/21/18 20:42 Dose: 0.5 mg Magnesium Hydroxide (Milk Of Magnesia Liq*) 30 ml PO Q4H PRN PRN Reason: CONSTIPATION Magnesium Hydroxide (Milk Of Magnesia Liq*) 30 ml PO Q2H PRN PRN Reason: CONSTIPATION Mirtazapine (Remeron Tab*) 15 mg PO DAILY [facility] Last Admin: 07/24/18 09:50 Dose: 15 mg Naproxen (Naprosyn Tab*) 500 mg PO BID PRN PRN Reason: PAIN Oxybutynin Chloride (Ditropan Xl Tab*) 5 mg PO DAILY [facility] Last Admin: 07/24/18 09:50 Dose: 5 mg Potassium Chloride (Klor-Con Liquid*) 20 meq PO BID [facility] Last Admin: 07/24/18 20:09 Dose: 20 meq Prednisone (Deltasone Tab*) 5 mg PO DAILY [facility] Last Admin: 07/24/18 09:50 Dose: 5 mg Propranolol HCl (Inderal Tab*) 20 mg PO BID [facility] Last Admin: 07/24/18 20:10 Dose: 20 mg Senna (Senokot Tab*) 1 tab PO BID [facility] Last Admin: 07/24/18 20:12 Dose: Not Given Tiotropium [place] (Spiriva Cap.Inh*) 1 cap INH DAILY [facility] Last Admin: 07/25/18 07:52 Dose: 1 cap Home Medications: Home Medications Medication Instructions Recorded Confirmed Type Propranolol TAB* [Inderal TAB*] 20 mg PO BID 09/26/12 07/19/18 History Oxybutynin XL TAB* [Ditropan Xl 5 mg PO DAILY 01/25/17 07/19/18 History TAB*] Alendronate (NF) [Fosamax (NF)] 70 mg PO WEEKLY 07/19/18 07/19/18 History Butalb/Acetamin/Caff TAB* 1 tab PO Q4HR PRN 07/19/18 07/19/18 History [Fioricet TAB*] Calcium Carbonate [[id number]] 500 mg PO DAILY 07/19/18 07/19/18 History Cholecalciferol (Vitamin D3) 1,000 unit PO DAILY 07/19/18 07/19/18 History [Vitamin D3] Glucagon* [Glucagen*] 1 mg IM ONCE PRN 07/19/18 07/19/18 History Insulin ASPART (NF) [Novolog (NF)] 2 unit SUBCUT AC MDD 30 unit 07/19/18 History Insulin GLARGINE(*) [Lantus(*)] 6 units SUBCUT BID MDD 30 units 07/19/18 History Insulin LISPRO* [HumaLOG*] 2 - 12 units SUBCUT AC 07/19/18 07/19/18 History LORazepam TAB(*) [Ativan 0.5 MG 0.5 mg PO Q6H PRN 07/19/18 07/19/18 History TAB (*)] Mirtazapine TAB* [Remeron TAB*] 15 mg PO DAILY 07/19/18 07/19/18 History Naproxen TAB* [Naprosyn 250 mg 500 mg PO BID PRN 07/19/18 07/19/18 History TAB*] Tiotropium CAP.INH* [Spiriva 1 cap.inh INH DAILY 07/19/18 07/19/18 History CAP.INH*] amLODIPine TAB* [Norvasc 5 mg TAB*] 5 mg PO DAILY 07/19/18 07/19/18 History predniSONE TAB* [Deltasone TAB*] 5 mg PO DAILY 07/19/18 07/19/18 History Potassium Chlor TAB* [Klor Con ER 20 meq PO BID #14 tab.er 07/22/18 Rx TAB*] Allergies: Allergies Allergy/AdvReac Type Severity Reaction Status Date / Time amitriptyline Allergy Unknown Verified 07/19/18 13:39 Reaction Details aspirin Allergy Bleeding Verified 07/19/18 13:39 hydroxychloroquine Allergy Rash Verified 07/19/18 13:39 latex Allergy Rash Verified 07/19/18 13:39 Penicillins Allergy Unknown Verified 07/19/18 13:39 Reaction Details Objective - Vital Signs Vital Signs: Vital Signs 07/24/18 07/24/18 07/24/18 11:19 12:34 14:32 Temperature 98.9 F Pulse Rate 78 Respiratory 24 18 18 Rate Blood Pressure 157/91 (mmHg) O2 Sat by Pulse 98 Oximetry 07/24/18 07/24/18 07/24/18 15:23 20:00 20:05 Temperature 98.7 F 100.7 F Pulse Rate 87 103 Respiratory 22 18 18 Rate Blood Pressure 120/73 133/93 (mmHg) O2 Sat by Pulse 100 96 Oximetry 07/25/18 07/25/18 07/25/18 00:09 03:55 07:53 Temperature 98.0 F 98.8 F Pulse Rate 80 86 105 Respiratory 16 16 14 Rate Blood Pressure 137/76 158/85 (mmHg) O2 Sat by Pulse 92 91 96 Oximetry 07/25/18 07:55 Temperature 97.4 F Pulse Rate 109 Respiratory 20 Rate Blood Pressure 118/80 (mmHg) O2 Sat by Pulse 96 Oximetry - Intake and Output Intake and Output: Intake & Output 07/22/18 07/23/18 07/24/18 07/25/18 11:59 11:59 11:59 11:59 Intake Total 700 1240 990 290 Balance 700 1240 990 290 Weight 102 lb 11.2 oz 105 lb 102 lb 8 oz Intake: IV Fluids 55 NS (0.9%) 55 IVPB 55 magnesium 55 Oral 700 1240 990 180 Other: Estimated Void Large Large Medium Small Date of Last Bowel [id number] 07/23/18 Movement # Bowel Movements 0 0 3 1 Estimated Stool Amount Large Medium Medium Small # Voids 1 1 1 1 ADLs: Meal Record Start: 07/19/18 20: 48 Freq: DAILY@0900,1400,1800 Status: Active Protocol: Created 07/19/18 20:48 System (Rec: 07/19/18 20:48 System MED-C11) Document 07/20/18 09:00 [email or web address] (Rec: 07/20/18 12:59 [email or web address] MED-C11) Document 07/20/18 14:00 [id number] (Rec: 07/20/18 14:09 [id number] MED-C09) Document 07/20/18 18:00 [id number] (Rec: 07/20/18 19:53 [id number] MED-C05) Document 07/21/18 09:00 [id number] (Rec: 07/21/18 10:56 [id number] MED-C11) Document 07/21/18 14:00 [id number] (Rec: 07/21/18 15:39 [id number] MED-M16) Document 07/21/18 18:00 [id number] (Rec: 07/21/18 20:49 [id number] MED-C02) Document 07/22/18 09:00 [id number] (Rec: 07/22/18 11:14 [id number] MED-C09) Document 07/22/18 14:00 [id number] (Rec: 07/22/18 14:45 [id number] MED-C09) Document 07/22/18 18:00 [id number] (Rec: 07/22/18 18:40 [id number] MED-C09) Document 07/23/18 09:00 [id number] (Rec: 07/23/18 12:15 [id number] MED-C11) Document 07/23/18 14:00 [id number] (Rec: 07/23/18 14:10 [id number] MED-C11) Document 07/23/18 18:00 [id number] (Rec: 07/23/18 18:26 [id number] MED-M19) Document 07/24/18 09:00 [id number] (Rec: 07/24/18 10:31 [id number] MED-C11) Document 07/24/18 14:00 DHF9025 (Rec: 07/24/18 14:13 [id number] MED-C07) Document 07/24/18 18:00 [id number] (Rec: 07/24/18 18:32 [id number] MED-C16) Intake and Output Start: 07/19/18 12: 44 Freq: Status: Active Protocol: Created 07/19/18 12:44 System (Rec: 07/19/18 12:44 System ED-C26) Intake and Output Start: 07/19/18 20: 48 Freq: DAILY@0600,1400,2200 Status: Active Protocol: Created 07/19/18 20:48 System (Rec: 07/19/18 20:48 System MED-C11) Document 07/19/18 22:00 [id number] (Rec: 07/19/18 22:13 [id number] MED-C13) Document 07/20/18 05:23 [id number] (Rec: 07/20/18 05:24 [id number] MED-C13) Document 07/20/18 14:00 RBL5095 (Rec: 07/20/18 14:09 [id number] MED-C09) Document 07/20/18 22:00 HAK0450 (Rec: 07/20/18 22:59 [id number] MED-C09) Document 07/21/18 06:00 [id number] (Rec: 07/21/18 06:03 [id number] MED-C11) Document 07/21/18 14:00 [id number] (Rec: 07/21/18 14:07 [id number] MED-C11) Document 07/21/18 21:38 [id number] (Rec: 07/21/18 21:39 IGH0354 MED-C11) Document 07/22/18 05:50 [id number] (Rec: 07/22/18 05:50 [id number] MED-C11) Document 07/22/18 14:00 IHU8854 (Rec: 07/22/18 14:45 [id number] MED-C09) Document 07/22/18 22:00 [id number] (Rec: 07/23/18 00:21 [id number] MED-C09) Document 07/23/18 04:47 YCL2624 (Rec: 07/23/18 04:48 [id number] MED-C09) Document 07/23/18 14:00 [id number] (Rec: 07/23/18 14:10 [id number] MED-C11) Document 07/23/18 22:00 [id number] (Rec: 07/24/18 00:39 [id number] MED-C04) Document 07/24/18 03:50 [id number] (Rec: 07/24/18 03:51 [id number] MED-C04) Document 07/24/18 14:00 [id number] (Rec: 07/24/18 14:13 [id number] MED-C07) Document 07/24/18 22:00 [id number] (Rec: 07/24/18 22:45 [id number] [facility]-C09) Document 07/25/18 06:00 [id number] (Rec: 07/25/18 06:23 [id number] [facility]-C09) - Physical Exam General Physical Exam Comment: She remains generally weak. She is conversational, but doesn't have a full grasp of her situation - her weakness and dependency. General: No Cyanosis, No Anemia, No Jaundice, No Clubbing Lungs and Chest: Yes: Chest Expansion Full, Chest Expansion Symetrica, Percussion Note Resonant - hyperresonant, Crackles - bibasilar dry crackles. No : Vessicular Breath Sounds - emphysematous, Wheezes, Respiratory Distress, Use of Accessory Muscles Heart Rate and Rhythm: Tachycardia Additional Cardiovascular: Yes: Normal Heart Sounds. No: Kathryn Beat not Displaced - displaced and hyperdynamic, Heart Murmur, Pedal Edema Abdominal Exam: Yes: Soft, Bowel Sounds Present. No: Distention, Abdominal Tenderness Results - Results Lab Results: Laboratory Results - last 24 hr 07/24/18 07/24/18 07/24/18 11:47 16:38 19:51 POC Glucose (mg/dL) 313 H 249 H 335 H Glucose Meter Confirm 07/25/18 07/25/18 07/25/18 03:34 03:45 07:19 POC Glucose (mg/dL) 431 H* 278 H Glucose Meter Confirm 429 H Assessment - Problem List Assessment: Patient Problems Hyperglycemia (Acute) Troponin I above reference range (Acute 09/15/14) Weakness generalized (Acute) Weight loss (Acute) Breast cancer, left (Chronic) Chronic obstructive lung disease (Chronic) DVT prophylaxis (Chronic 09/15/14) Essential hypertension (Chronic) Fibrosis of lung (Chronic) Fracture of femoral neck, right (Chronic 09/15/14) Full code status (Chronic 09/15/14) History of fracture of left hip (Chronic) History of right hip hemiarthroplasty (Chronic) Hypercholesteremia (Chronic) Migraine (Chronic) Osteoporosis (Chronic) Rheumatoid arthritis (Chronic) Semi-starvation (Chronic) Type 1 diabetes mellitus, uncontrolled (Chronic) Plan: Type 1 diabetes mellitus, uncontrolled (Chronic)Hyperglycemia (Acute) She remains labile, but mostly hyperglycemic. I will increase the glargine insulin Weakness generalized (Acute)Semi-starvation (Chronic) This is the barrier for a safe discharge home. She was able to walk with a single assist - but this was a trained PT. This is multifactorial: * poor nutrition * prolonged recumbency with episode of constipation/DKA * rheumatoid arthritis * mental state - some depression/also not as focused as usual * COPD/pulmonary fibrosis with desaturation. Her son Lino states she was walking the day before she came into the hospital. It is possible she may have had a small stroke, though there are no focal findings. I spoke to her son and with the community development planner. We will attempt OT/PT again today. Lino and her sister Janet are coming in again today. We will make a clear choice for a discharge plan - either SNF for rehab or home with PT/ VNS Weight loss (Acute) She is eating/drinking secondary diagnosies: Breast cancer, left (Chronic) Chronic obstructive lung disease (Chronic) DVT prophylaxis (Chronic 09/15/14) Essential hypertension (Chronic) Fibrosis of lung (Chronic) Fracture of femoral neck, right (Chronic 09/15/14) Full code status (Chronic 09/15/14) History of fracture of left hip (Chronic) History of right hip hemiarthroplasty (Chronic) Hypercholesteremia (Chronic) Migraine (Chronic) Osteoporosis (Chronic) Rheumatoid arthritis (Chronic) I discussed the above with the patient.
[2018-07-25] MEDS ORDERED: Insulin GLARGINE(*) 1 UNITS UNIT SUBCUT SCH ×2 (09:00)
[2018-07-25] MEDS: Oxybutynin XL TAB* 5 MG PO SCH (10:15)
[2018-07-25] MEDS: Docusate CAP* 100 MG PO SCH ×2 (10:15→20:57)
[2018-07-25] MEDS: Propranolol TAB* 20 MG PO SCH ×2 (10:15→20:57)
[2018-07-25] MEDS: Mirtazapine TAB* 15 MG PO SCH (10:15)
[2018-07-25] MEDS: amLODIPine TAB* 5 MG PO SCH (10:16)
[2018-07-25] MEDS: predniSONE TAB* 10 MG PO SCH (10:16)
[2018-07-25] MEDS: Senna TAB PO SCH ×2 (10:16→20:57)
[2018-07-25] MEDS: Insulin LISPRO* 1 UNITS UNIT SUBCUT SCH ×7 (10:20→20:57)
[2018-07-25] MEDS: Potassium Chloride LIQUID* 20 MEQ PACKET PO SCH ×2 (10:25→20:57)
[2018-07-26] MEDS: Heparin VIAL(*) 5000 UNITS/ML VIAL (FIVE THOUSAND) SUBCUT SCH ×3 (05:31→22:07)
--- NOTE | 2018-07-26 08:31 | PN ---
Subjective - Subjective Reason for Note: Progress Note History: She had another hypoglycemic episode this morning. She is recovering from this. I reviewed PT visit from yesterday. She denies any pain or focal symptoms. Active Problems: Active Problems Labile blood glucose (Acute) R73.09 Weakness generalized (Acute) R53.1 Weight loss (Acute) Breast cancer, left (Chronic) C50.912 Chronic obstructive lung disease (Chronic) J44.9 DVT prophylaxis (Chronic 09/15/14) [id number] Essential hypertension (Chronic) I10 Fibrosis of lung (Chronic) J84.10 Fracture of femoral neck, right (Chronic 09/15/14) S72.001A Full code status (Chronic 09/15/14) Z78.9 History of fracture of left hip (Chronic) Z87.81 History of right hip hemiarthroplasty (Chronic) Z96.641 Hypercholesteremia (Chronic) E78.0 Migraine (Chronic) G43.909 Osteoporosis (Chronic) M81.0 Rheumatoid arthritis (Chronic) M06.9 Semi-starvation (Chronic) T73.0XXA Type 1 diabetes mellitus, uncontrolled (Chronic) E10.65 Current Medications: Current Medications Acetaminophen/Butalbital/Caffeine (Fioricet Tab*) 1 tab PO Q4HR PRN PRN Reason: MIGRAINE HEADACHE Last Admin: 07/24/18 12:34 Dose: 1 tab Amlodipine Besylate (Norvasc Tab*) 5 mg PO DAILY [facility] Last Admin: 07/25/18 10:16 Dose: 5 mg Dextrose (D50w Syringe 50 Ml*) 12.5 gm IV PUSH .FOR FS < 60 - SS PRN PRN Reason: FS < 60 Dextrose (D50w Syringe 50 Ml*) 12.5 gm IV PUSH .FOR FS < 60 - SS PRN PRN Reason: FS < 60 Docusate Sodium (Colace Cap*) 100 mg PO BID [facility] Last Admin: 07/25/18 20:57 Dose: 100 mg Heparin Sodium (Porcine) (Heparin Vial(*)) 5,000 units SUBCUT Q8HR [facility] Last Admin: 07/26/18 05:31 Dose: 5,000 units Insulin Glargine (Lantus(*)) 17 units SUBCUT Q24H [facility] Last Admin: 07/25/18 10:21 Dose: 17 unit Insulin Human Lispro (Humalog*) 0 units SUBCUT ACHS [facility]; Protocol Last Admin: 07/25/18 20:57 Dose: 1 unit Insulin Human Lispro (Humalog*) 1 units SUBCUT AC [facility]; Protocol Last Admin: 07/25/18 18:46 Dose: 2 unit Lorazepam (Ativan Tab(*)) 0.5 mg PO Q6H PRN PRN Reason: ANXIETY Last Admin: 07/21/18 20:42 Dose: 0.5 mg Magnesium Hydroxide (Milk Of Magnesia Liq*) 30 ml PO Q4H PRN PRN Reason: CONSTIPATION Magnesium Hydroxide (Milk Of Magnesia Liq*) 30 ml PO Q2H PRN PRN Reason: CONSTIPATION Mirtazapine (Remeron Tab*) 15 mg PO DAILY [facility] Last Admin: 07/25/18 10:15 Dose: 15 mg Naproxen (Naprosyn Tab*) 500 mg PO BID PRN PRN Reason: PAIN Oxybutynin Chloride (Ditropan Xl Tab*) 5 mg PO DAILY [facility] Last Admin: 07/25/18 10:15 Dose: 5 mg Potassium Chloride (Klor-Con Liquid*) 20 meq PO BID [facility] Last Admin: 07/25/18 20:57 Dose: 20 meq Prednisone (Deltasone Tab*) 10 mg PO DAILY [facility] Last Admin: 07/25/18 10:16 Dose: 10 mg Propranolol HCl (Inderal Tab*) 20 mg PO BID [facility] Last Admin: 07/25/18 20:57 Dose: 20 mg Senna (Senokot Tab*) 1 tab PO BID [facility] Last Admin: 07/25/18 20:57 Dose: 1 tab Tiotropium Estell[place] (Spiriva Cap.Inh*) 1 cap INH DAILY [facility] Last Admin: 07/25/18 07:52 Dose: 1 cap Home Medications: Home Medications Medication Instructions Recorded Confirmed Type Propranolol TAB* [Inderal TAB*] 20 mg PO BID 09/26/12 07/19/18 History Oxybutynin XL TAB* [Ditropan Xl 5 mg PO DAILY 01/25/17 07/19/18 History TAB*] Alendronate (NF) [Fosamax (NF)] 70 mg PO WEEKLY 07/19/18 07/19/18 History Butalb/Acetamin/Caff TAB* 1 tab PO Q4HR PRN 07/19/18 07/19/18 History [Fioricet TAB*] Calcium Carbonate [Rfqc-Ook-315] 500 mg PO DAILY 07/19/18 07/19/18 History Cholecalciferol (Vitamin D3) 1,000 unit PO DAILY 07/19/18 07/19/18 History [Vitamin D3] Glucagon* [Glucagen*] 1 mg IM ONCE PRN 07/19/18 07/19/18 History Insulin ASPART (NF) [Novolog (NF)] 2 unit SUBCUT AC MDD 30 unit 07/19/18 History Insulin GLARGINE(*) [Lantus(*)] 6 units SUBCUT BID MDD 30 units 07/19/18 History Insulin LISPRO* [HumaLOG*] 2 - 12 units SUBCUT AC 07/19/18 07/19/18 History LORazepam TAB(*) [Ativan 0.5 MG 0.5 mg PO Q6H PRN 07/19/18 07/19/18 History TAB (*)] Mirtazapine TAB* [Remeron TAB*] 15 mg PO DAILY 07/19/18 07/19/18 History Naproxen TAB* [Naprosyn 250 mg 500 mg PO BID PRN 07/19/18 07/19/18 History TAB*] Tiotropium CAP.INH* [Spiriva 1 cap.inh INH DAILY 07/19/18 07/19/18 History CAP.INH*] amLODIPine TAB* [Norvasc 5 mg TAB*] 5 mg PO DAILY 07/19/18 07/19/18 History predniSONE TAB* [Deltasone TAB*] 5 mg PO DAILY 07/19/18 07/19/18 History Potassium Chlor TAB* [Klor Con ER 20 meq PO BID #14 tab.er 07/22/18 Rx TAB*] Allergies: Allergies Allergy/AdvReac Type Severity Reaction Status Date / Time amitriptyline Allergy Unknown Verified 07/19/18 13:39 Reaction Details aspirin Allergy Bleeding Verified 07/19/18 13:39 hydroxychloroquine Allergy Rash Verified 07/19/18 13:39 latex Allergy Rash Verified 07/19/18 13:39 Penicillins Allergy Unknown Verified 07/19/18 13:39 Reaction Details Objective - Vital Signs Vital Signs: Vital Signs 07/25/18 07/25/18 07/25/18 11:11 15:33 19:26 Temperature 98.5 F 97.1 F 97.2 F Pulse Rate 88 100 100 Respiratory 22 16 16 Rate Blood Pressure 146/88 114/83 133/86 (mmHg) O2 Sat by Pulse 96 92 95 Oximetry 07/25/18 07/25/18 07/26/18 20:00 23:39 02:33 Temperature 98.2 F Pulse Rate 72 75 Respiratory 16 16 16 Rate Blood Pressure 140/83 133/79 (mmHg) O2 Sat by Pulse 100 100 Oximetry - Intake and Output Intake and Output: Intake & Output 07/23/18 07/24/18 07/25/18 07/26/18 11:59 11:59 11:59 11:59 Intake Total 1240 990 350 300 Balance 1240 990 350 300 Weight 105 lb 102 lb 8 oz Intake: IV Fluids 55 NS (0.9%) 55 IVPB 55 magnesium 55 Oral 1240 990 240 300 Other: Estimated Void Large Medium Small Large Date of Last Bowel 810255 07/23/18 Movement # Bowel Movements 0 3 1 2 Estimated Stool Amount Medium Medium Small Large # Voids 1 1 1 1 ADLs: Meal Record Start: 07/19/18 20: 48 Freq: DAILY@0900,1400,1800 Status: Active Protocol: Created 07/19/18 20:48 System (Rec: 07/19/18 20:48 System MED-C11) Document 07/20/18 09:00 [id number] (Rec: 07/20/18 12:59 [id number] MED-C11) Document 07/20/18 14:00 [id number] (Rec: 07/20/18 14:09 [id number] MED-C09) Document 07/20/18 18:00 [id number] (Rec: 07/20/18 19:53 [id number] MED-C05) Document 07/21/18 09:00 [id number] (Rec: 07/21/18 10:56 [id number] MED-C11) Document 07/21/18 14:00 [id number] (Rec: 07/21/18 15:39 [id number] MED-M16) Document 07/21/18 18:00 [id number] (Rec: 07/21/18 20:49 [id number] MED-C02) Document 07/22/18 09:00 [id number] (Rec: 07/22/18 11:14 [id number] MED-C09) Document 07/22/18 14:00 [id number] (Rec: 07/22/18 14:45 [id number] MED-C09) Document 07/22/18 18:00 DMB2298 (Rec: 07/22/18 18:40 [id number] MED-C09) Document 07/23/18 09:00 [id number] (Rec: 07/23/18 12:15 [id number] MED-C11) Document 07/23/18 14:00 [id number] (Rec: 07/23/18 14:10 [id number] MED-C11) Document 07/23/18 18:00 HCL0481 (Rec: 07/23/18 18:26 [id number] MED-M19) Document 07/24/18 09:00 CFS9545 (Rec: 07/24/18 10:31 [id number] MED-C11) Document 07/24/18 14:00 OUK2470 (Rec: 07/24/18 14:13 [id number] MED-C07) Document 07/24/18 18:00 YXY3732 (Rec: 07/24/18 18:32 [id number] MED-C16) Document 07/25/18 09:00 XQE2011 (Rec: 07/25/18 12:21 GIA7210 MED-C11) Document 07/25/18 14:00 MCZ5301 (Rec: 07/25/18 15:07 [id number] MED-C11) Document 07/25/18 18:00 YBT5349 (Rec: 07/25/18 18:54 [id number] MED-C09) Intake and Output Start: 07/19/18 12: 44 Freq: Status: Active Protocol: Created 07/19/18 12:44 System (Rec: 07/19/18 12:44 System ED-C26) Intake and Output Start: 07/19/18 20: 48 Freq: DAILY@0600,1400,2200 Status: Active Protocol: Created 07/19/18 20:48 System (Rec: 07/19/18 20:48 System MED-C11) Document 07/19/18 22:00 [id number] (Rec: 07/19/18 22:13 [id number] MED-C13) Document 07/20/18 05:23 [id number] (Rec: 07/20/18 05:24 [id number] MED-C13) Document 07/20/18 14:00 EXO5954 (Rec: 07/20/18 14:09 [id number] MED-C09) Document 07/20/18 22:00 [id number] (Rec: 07/20/18 22:59 [id number] MED-C09) Document 07/21/18 06:00 [id number] (Rec: 07/21/18 06:03 [id number] MED-C11) Document 07/21/18 14:00 [id number] (Rec: 07/21/18 14:07 [id number] MED-C11) Document 07/21/18 21:38 [id number] (Rec: 07/21/18 21:39 [id number] MED-C11) Document 07/22/18 05:50 [id number] (Rec: 07/22/18 05:50 [id number] MED-C11) Document 07/22/18 14:00 QRK5715 (Rec: 07/22/18 14:45 [id number] MED-C09) Document 07/22/18 22:00 [id number] (Rec: 07/23/18 00:21 ORI1795 MED-C09) Document 07/23/18 04:47 [id number] (Rec: 07/23/18 04:48 [id number] MED-C09) Document 07/23/18 14:00 QAJ3044 (Rec: 07/23/18 14:10 ISS0742 MED-C11) Document 07/23/18 22:00 [id number] (Rec: 07/24/18 00:39 [id number] MED-C04) Document 07/24/18 03:50 FGQ0298 (Rec: 07/24/18 03:51 [id number] MED-C04) Document 07/24/18 14:00 TPB6170 (Rec: 07/24/18 14:13 [id number] MED-C07) Document 07/24/18 22:00 [id number] (Rec: 07/24/18 22:45 [id number] MED-C09) Document 07/25/18 06:00 [id number] (Rec: 07/25/18 06:23 [id number] MED-C09) Document 07/25/18 14:00 KCR2513 (Rec: 07/25/18 15:07 [id number] MED-C11) Document 07/25/18 22:00 BSZ8995 (Rec: 07/25/18 22:03 [id number] MED-C11) Document 07/26/18 03:24 [id number] (Rec: 07/26/18 03:25 [id number] MED-M16) Document 07/26/18 05:49 [id number] (Rec: 07/26/18 05:51 [id number] MED-C09) - Physical Exam General: No Cyanosis, No Anemia, No Jaundice, No Clubbing Lungs and Chest: Yes: Chest Expansion Full, Chest Expansion Symetrica, Crackles. No: Percussion Note Resonant - hyperresonant, Vessicular Breath Sounds, Wheezes, Respiratory Distress Heart Rate and Rhythm: Regular Additional Cardiovascular: Yes: Normal Heart Sounds. No: Heart Murmur, Pedal Edema Breast: Normal - No masses, discharge, axillary adenopathy Abdominal Exam: Yes: Soft, Bowel Sounds Present. No: Distention, Abdominal Tenderness Results - Results Lab Results: Laboratory Results - last 24 hr 07/25/18 07/25/18 07/25/18 12:09 16:27 20:51 POC Glucose (mg/dL) 307 H 340 H 192 H 07/26/18 07/26/18 07/26/18 03:04 07:17 07:41 POC Glucose (mg/dL) 104 H 39 L* 65 L Assessment - Problem List Assessment: Patient Problems Labile blood glucose (Acute) Weakness generalized (Acute) Weight loss (Acute) Breast cancer, left (Chronic) Chronic obstructive lung disease (Chronic) DVT prophylaxis (Chronic 09/15/14) Essential hypertension (Chronic) Fibrosis of lung (Chronic) Fracture of femoral neck, right (Chronic 09/15/14) Full code status (Chronic 09/15/14) History of fracture of left hip (Chronic) History of right hip hemiarthroplasty (Chronic) Hypercholesteremia (Chronic) Migraine (Chronic) Osteoporosis (Chronic) Rheumatoid arthritis (Chronic) Semi-starvation (Chronic) Type 1 diabetes mellitus, uncontrolled (Chronic) Plan: Labile blood glucose (Acute) She had a significant hypoglycemic reaction this morning after persistent hyperglycemia. I have trimmed back her lantus to her usual dose. Unfortunately, this is a pattern she has at home. However, there she has the benefit of a continuous glucose monitor. Weakness generalized (Acute) Ongoing - she achieved more at PT yesterday. A period of rehab was recommended Weight loss (Acute) stable Breast cancer, left (Chronic) I examined her breasts - no recurrence. Chronic obstructive lung disease (Chronic) ongoing secondary diagnoses: DVT prophylaxis (Chronic 09/15/14) Essential hypertension (Chronic) Fibrosis of lung (Chronic) Fracture of femoral neck, right (Chronic 09/15/14) Full code status (Chronic 09/15/14) History of fracture of left hip (Chronic) History of right hip hemiarthroplasty (Chronic) Hypercholesteremia (Chronic) Migraine (Chronic) Osteoporosis (Chronic) Rheumatoid arthritis (Chronic) Semi-starvation (Chronic) Type 1 diabetes mellitus, uncontrolled (Chronic) Discussion with son - concerned about her mental state ? depression. When she is quite, doesn't speak a lot, doesn't pay attention - symptom of an emotional issue. We will obtain a speech/cognitive evaluation. Her son is concerned she wouldn't cope with the PMRU 3 hours per day. Lino's feeling is that [employer] for 1 week may work.
--- NOTE | 2018-07-26 08:49 | PN ---
Subjective - Subjective Active Problems: Active Problems Labile blood glucose (Acute) R73.09 Weakness generalized (Acute) R53.1 Weight loss (Acute) Breast cancer, left (Chronic) C50.912 Chronic obstructive lung disease (Chronic) J44.9 DVT prophylaxis (Chronic 09/15/14) [id number] Essential hypertension (Chronic) I10 Fibrosis of lung (Chronic) J84.10 Fracture of femoral neck, right (Chronic 09/15/14) S72.001A Full code status (Chronic 09/15/14) Z78.9 History of fracture of left hip (Chronic) Z87.81 History of right hip hemiarthroplasty (Chronic) Z96.641 Hypercholesteremia (Chronic) E78.0 Migraine (Chronic) G43.909 Osteoporosis (Chronic) M81.0 Rheumatoid arthritis (Chronic) M06.9 Semi-starvation (Chronic) T73.0XXA Type 1 diabetes mellitus, uncontrolled (Chronic) E10.65 Current Medications: Current Medications Acetaminophen/Butalbital/Caffeine (Fioricet Tab*) 1 tab PO Q4HR PRN PRN Reason: MIGRAINE HEADACHE Last Admin: 07/24/18 12:34 Dose: 1 tab Amlodipine Besylate (Norvasc Tab*) 5 mg PO DAILY [facility] Last Admin: 07/25/18 10:16 Dose: 5 mg Dextrose (D50w Syringe 50 Ml*) 12.5 gm IV PUSH .FOR FS < 60 - SS PRN PRN Reason: FS < 60 Dextrose (D50w Syringe 50 Ml*) 12.5 gm IV PUSH .FOR FS < 60 - SS PRN PRN Reason: FS < 60 Docusate Sodium (Colace Cap*) 100 mg PO BID [facility] Last Admin: 07/25/18 20:57 Dose: 100 mg Heparin Sodium (Porcine) (Heparin Vial(*)) 5,000 units SUBCUT Q8HR [facility] Last Admin: 07/26/18 05:31 Dose: 5,000 units Insulin Glargine (Lantus(*)) 12 units SUBCUT Q24H [facility] Insulin Human Lispro (Humalog*) 0 units SUBCUT ACHS [facility]; Protocol Last Admin: 07/25/18 20:57 Dose: 1 unit Insulin Human Lispro (Humalog*) 1 units SUBCUT AC [facility]; Protocol Last Admin: 07/25/18 18:46 Dose: 2 unit Lorazepam (Ativan Tab(*)) 0.5 mg PO Q6H PRN PRN Reason: ANXIETY Last Admin: 07/21/18 20:42 Dose: 0.5 mg Mirtazapine (Remeron Tab*) 15 mg PO DAILY [facility] Last Admin: 07/25/18 10:15 Dose: 15 mg Naproxen (Naprosyn Tab*) 500 mg PO BID PRN PRN Reason: PAIN Oxybutynin Chloride (Ditropan Xl Tab*) 5 mg PO DAILY [facility] Last Admin: 07/25/18 10:15 Dose: 5 mg Prednisone (Deltasone Tab*) 10 mg PO DAILY [facility] Last Admin: 07/25/18 10:16 Dose: 10 mg Propranolol HCl (Inderal Tab*) 20 mg PO BID [facility] Last Admin: 07/25/18 20:57 Dose: 20 mg Senna (Senokot Tab*) 1 tab PO BID [facility] Last Admin: 07/25/18 20:57 Dose: 1 tab Tiotropium Hasty (Spiriva Cap.Inh*) 1 cap INH DAILY [facility] Last Admin: 07/25/18 07:52 Dose: 1 cap Home Medications: Home Medications Medication Instructions Recorded Confirmed Type Propranolol TAB* [Inderal TAB*] 20 mg PO BID 09/26/12 07/19/18 History Oxybutynin XL TAB* [Ditropan Xl 5 mg PO DAILY 01/25/17 07/19/18 History TAB*] Alendronate (NF) [Fosamax (NF)] 70 mg PO WEEKLY 07/19/18 07/19/18 History Butalb/Acetamin/Caff TAB* 1 tab PO Q4HR PRN 07/19/18 07/19/18 History [Fioricet TAB*] Calcium Carbonate [Vbpw-Apl-484] 500 mg PO DAILY 07/19/18 07/19/18 History Cholecalciferol (Vitamin D3) 1,000 unit PO DAILY 07/19/18 07/19/18 History [Vitamin D3] Glucagon* [Glucagen*] 1 mg IM ONCE PRN 07/19/18 07/19/18 History Insulin ASPART (NF) [Novolog (NF)] 2 unit SUBCUT AC MDD 30 unit 07/19/18 History Insulin GLARGINE(*) [Lantus(*)] 6 units SUBCUT BID MDD 30 units 07/19/18 History Insulin LISPRO* [HumaLOG*] 2 - 12 units SUBCUT AC 07/19/18 07/19/18 History LORazepam TAB(*) [Ativan 0.5 MG 0.5 mg PO Q6H PRN 07/19/18 07/19/18 History TAB (*)] Mirtazapine TAB* [Remeron TAB*] 15 mg PO DAILY 07/19/18 07/19/18 History Naproxen TAB* [Naprosyn 250 mg 500 mg PO BID PRN 07/19/18 07/19/18 History TAB*] Tiotropium CAP.INH* [Spiriva 1 cap.inh INH DAILY 07/19/18 07/19/18 History CAP.INH*] amLODIPine TAB* [Norvasc 5 mg TAB*] 5 mg PO DAILY 07/19/18 07/19/18 History predniSONE TAB* [Deltasone TAB*] 5 mg PO DAILY 07/19/18 07/19/18 History Potassium Chlor TAB* [Klor Con ER 20 meq PO BID #14 tab.er 07/22/18 Rx TAB*] Allergies: Allergies Allergy/AdvReac Type Severity Reaction Status Date / Time amitriptyline Allergy Unknown Verified 07/19/18 13:39 Reaction Details aspirin Allergy Bleeding Verified 07/19/18 13:39 hydroxychloroquine Allergy Rash Verified 07/19/18 13:39 latex Allergy Rash Verified 07/19/18 13:39 Penicillins Allergy Unknown Verified 07/19/18 13:39 Reaction Details Objective - Vital Signs Vital Signs: Vital Signs 07/25/18 07/25/18 07/25/18 11:11 15:33 19:26 Temperature 98.5 F 97.1 F 97.2 F Pulse Rate 88 100 100 Respiratory 22 16 16 Rate Blood Pressure 146/88 114/83 133/86 (mmHg) O2 Sat by Pulse 96 92 95 Oximetry 07/25/18 07/25/18 07/26/18 20:00 23:39 02:33 Temperature 98.2 F Pulse Rate 72 75 Respiratory 16 16 16 Rate Blood Pressure 140/83 133/79 (mmHg) O2 Sat by Pulse 100 100 Oximetry 07/26/18 08:16 Temperature 97.6 F Pulse Rate 73 Respiratory 18 Rate Blood Pressure 137/86 (mmHg) O2 Sat by Pulse 95 Oximetry - Intake and Output Intake and Output: Intake & Output 07/23/18 07/24/18 07/25/18 07/26/18 11:59 11:59 11:59 11:59 Intake Total 1240 990 350 300 Balance 1240 990 350 300 Weight 105 lb 102 lb 8 oz Intake: IV Fluids 55 NS (0.9%) 55 IVPB 55 magnesium 55 Oral 1240 990 240 300 Other: Estimated Void Large Medium Small Large Date of Last Bowel 087802 07/23/18 Movement # Bowel Movements 0 3 1 2 Estimated Stool Amount Medium Medium Small Large # Voids 1 1 1 1 ADLs: Meal Record Start: 07/19/18 20: 48 Freq: DAILY@0900,1400,1800 Status: Active Protocol: Created 07/19/18 20:48 System (Rec: 07/19/18 20:48 System MED-C11) Document 07/20/18 09:00 [id number] (Rec: 07/20/18 12:59 [id number] MED-C11) Document 07/20/18 14:00 [id number] (Rec: 07/20/18 14:09 SUZ1282 MED-C09) Document 07/20/18 18:00 KBG7912 (Rec: 07/20/18 19:53 UOL2003 MED-C05) Document 07/21/18 09:00 UPR5728 (Rec: 07/21/18 10:56 DSR1110 MED-C11) Document 07/21/18 14:00 BXW9670 (Rec: 07/21/18 15:39 [id number] MED-M16) Document 07/21/18 18:00 ELW2110 (Rec: 07/21/18 20:49 UNH0929 MED-C02) Document 07/22/18 09:00 RBL2112 (Rec: 07/22/18 11:14 [id number] MED-C09) Document 07/22/18 14:00 WSE9982 (Rec: 07/22/18 14:45 [id number] MED-C09) Document 07/22/18 18:00 [id number] (Rec: 07/22/18 18:40 [id number] MED-C09) Document 07/23/18 09:00 OCO4825 (Rec: 07/23/18 12:15 [id number] MED-C11) Document 07/23/18 14:00 JNV7588 (Rec: 07/23/18 14:10 [id number] MED-C11) Document 07/23/18 18:00 DPB2533 (Rec: 07/23/18 18:26 [id number] MED-M19) Document 07/24/18 09:00 XDT9226 (Rec: 07/24/18 10:31 OCK0155 MED-C11) Document 07/24/18 14:00 EQY6574 (Rec: 07/24/18 14:13 ERK4762 MED-C07) Document 07/24/18 18:00 JRS9002 (Rec: 07/24/18 18:32 [id number] MED-C16) Document 07/25/18 09:00 BFA6914 (Rec: 07/25/18 12:21 [id number] MED-C11) Document 07/25/18 14:00 QDU3939 (Rec: 07/25/18 15:07 [id number] MED-C11) Document 07/25/18 18:00 TUO4606 (Rec: 07/25/18 18:54 [id number] MED-C09) Intake and Output Start: 07/19/18 12: 44 Freq: Status: Active Protocol: Created 07/19/18 12:44 System (Rec: 07/19/18 12:44 System ED-C26) Intake and Output Start: 07/19/18 20: 48 Freq: DAILY@0600,1400,2200 Status: Active Protocol: Created 07/19/18 20:48 System (Rec: 07/19/18 20:48 System MED-C11) Document 07/19/18 22:00 [id number] (Rec: 07/19/18 22:13 [id number] MED-C13) Document 07/20/18 05:23 DZT2785 (Rec: 07/20/18 05:24 DLZ0472 MED-C13) Document 07/20/18 14:00 MDH3313 (Rec: 07/20/18 14:09 [id number] MED-C09) Document 07/20/18 22:00 IQO0736 (Rec: 07/20/18 22:59 [id number] MED-C09) Document 07/21/18 06:00 ISG2058 (Rec: 07/21/18 06:03 [id number] MED-C11) Document 07/21/18 14:00 EHW4487 (Rec: 07/21/18 14:07 [id number] MED-C11) Document 07/21/18 21:38 EBY0107 (Rec: 07/21/18 21:39 [id number] MED-C11) Document 07/22/18 05:50 [id number] (Rec: 07/22/18 05:50 ECS5252 MED-C11) Document 07/22/18 14:00 SRK6108 (Rec: 07/22/18 14:45 [id number] MED-C09) Document 07/22/18 22:00 CCH9608 (Rec: 07/23/18 00:21 CVZ0466 MED-C09) Document 07/23/18 04:47 [id number] (Rec: 07/23/18 04:48 [id number] MED-C09) Document 07/23/18 14:00 CCO0630 (Rec: 07/23/18 14:10 [id number] MED-C11) Document 07/23/18 22:00 DVF5205 (Rec: 07/24/18 00:39 [id number] MED-C04) Document 07/24/18 03:50 RSI2573 (Rec: 07/24/18 03:51 [id number] MED-C04) Document 07/24/18 14:00 MBJ1044 (Rec: 07/24/18 14:13 VAR1441 MED-C07) Document 07/24/18 22:00 OOJ6165 (Rec: 07/24/18 22:45 [id number] MED-C09) Document 07/25/18 06:00 [id number] (Rec: 07/25/18 06:23 [id number] MED-C09) Document 07/25/18 14:00 [id number] (Rec: 07/25/18 15:07 QSC9079 MED-C11) Document 07/25/18 22:00 SZV3475 (Rec: 07/25/18 22:03 [id number] MED-C11) Document 07/26/18 03:24 [id number] (Rec: 07/26/18 03:25 HEW2767 MED-M16) Document 07/26/18 05:49 [id number] (Rec: 07/26/18 05:51 [id number] MED-C09) Results - Results Lab Results: Laboratory Results - last 24 hr 07/25/18 07/25/18 07/25/18 12:09 16:27 20:51 POC Glucose (mg/dL) 307 H 340 H 192 H 07/26/18 07/26/18 07/26/18 03:04 07:17 07:41 POC Glucose (mg/dL) 104 H 39 L* 65 L Assessment - Problem List Assessment: Patient Problems Labile blood glucose (Acute) Weakness generalized (Acute) Weight loss (Acute) Breast cancer, left (Chronic) Chronic obstructive lung disease (Chronic) DVT prophylaxis (Chronic 09/15/14) Essential hypertension (Chronic) Fibrosis of lung (Chronic) Fracture of femoral neck, right (Chronic 09/15/14) Full code status (Chronic 09/15/14) History of fracture of left hip (Chronic) History of right hip hemiarthroplasty (Chronic) Hypercholesteremia (Chronic) Migraine (Chronic) Osteoporosis (Chronic) Rheumatoid arthritis (Chronic) Semi-starvation (Chronic) Type 1 diabetes mellitus, uncontrolled (Chronic) Plan: Continuous glucose monitor: She has a [employer]EX[employer] G6 that is a continuous glucose monitor. Her son Lino and I think it would be useful in warning us of hypoglycemia. It remains to be seen if she is alert enough to manage this. Also, if it is going low, who would get the alarms. If it goes wrong, who would be responsible. There should be a risk/benefit process between the patient, the nursing staff and her son Lino
[2018-07-26] MEDS: Tiotropium CAP.INH* CAP.INH/18 MCG (USE ORDER SET !) INH SCH (09:32)
[2018-07-26] MEDS: Insulin LISPRO* 1 UNITS UNIT SUBCUT SCH ×7 (09:52→22:07)
[2018-07-26] MEDS: Mirtazapine TAB* 15 MG PO SCH ×2 (10:03→22:06)
[2018-07-26] MEDS: Oxybutynin XL TAB* 5 MG PO SCH (10:04)
[2018-07-26] MEDS: predniSONE TAB* 10 MG PO SCH (10:04)
[2018-07-26] MEDS: amLODIPine TAB* 5 MG PO SCH (10:05)
[2018-07-26] MEDS: Propranolol TAB* 20 MG PO SCH ×2 (10:05→22:06)
[2018-07-26] MEDS: Insulin GLARGINE(*) 1 UNITS UNIT SUBCUT SCH (10:06)
[2018-07-26] MEDS: Docusate CAP* 100 MG PO SCH ×2 (10:08→22:06)
[2018-07-26] MEDS: Butalb/Acetamin/Caff TAB* 1 TAB PO PRN (14:54)
--- NOTE | 2018-07-26 19:56 | CONS ---
CONSULTATION REPORT: DATE OF CONSULT: 07/26/18 ATTENDING PHYSICIAN: Dr. Toni Bates. CONSULTING PHYSICIAN: Dr. Jerry Arevalo. REASON FOR CONSULT: Depression and difficulty sleeping. SUBJECTIVE HISTORY: The patient is an 83-year-old female, recently treated for depression, who is admitted to the medical service secondary to generalized weakness and blood sugars in the 400s. The patient's course of treatment has been complicated by amotivation and difficulty sleeping. The patient is known to this clinician from a previous consultation, and for a recapitulation of her extended history, please refer to my dictated consult from 01/29/17. My understanding is that in the interim period, she has been placed on a trial of mirtazapine 15 mg p.o. daily. It is unclear whether this was a mistake in the medication reconciliation process given the fact that mirtazapine is highly sedating and typically given in the evening. At any rate, the patient is irritable, but otherwise cooperative with my examination. She states "I am diabetic, which is my main concern. They filled me up with all kinds of meds and stuff. I have been overloaded on laxatives. I am telling you it is a pain in the butts of the aides that have to clean me up." The patient goes on to talk about difficult experiences that she had historically as an employee of [employer]. There, she experienced racial discrimination as well as what she considered a lack of concern on the part of the administration for both faculty and students. The patient becomes tearful at one point describing an incident in which she saw a [employer] lance crewmember/[employer] sergeant jump off a bridge in a successful suicide. She states the other [employer] faculty were in the vicinity and may have prevented him, but did nothing to stop him. In terms of neurovegetative symptoms of depression, the patient endorses difficulty sleeping as well as guilt and lack of energy. Interestingly, she denies decreased appetite, but clearly she has been losing weight recently. When asked about this, she states that she is fearful that food may bother her bowels. "Then, I have to ask these nice young girls to clean me up." She currently denies symptoms of anhedonia, concentration loss, psychomotor retardation or suicidal ideations. The patient expresses unawareness that she has been treated with an antidepressant and states her preference to not receive further antidepressant or psychiatric medications. MENTAL STATUS EXAMINATION: The patient is an aging female, who is slender and undernourished. She is sitting upright in a chair, wearing a patient gown, and appears to have fair grooming. The patient is guarded with this clinician, but ultimately cooperative. Speech is fluent with an excellent vocabulary. Mood appears irritable with a constricted affect. Through process is linear, goal directed. Thought content is significant for dissatisfaction with her treatment here in the hospital. She is complaining about receiving an echocardiogram at 4 o'clock in the morning. The patient denies suicidal or homicidal ideation. She denies auditory or visual hallucinations. Insight and judgment are somewhat limited given her reluctance to receive antidepressant therapy. Cognitively, she is awake and alert with what would appear to be a high- average intellect by virtue of her academic and occupational history. DIAGNOSES: Hayward I: Major depressive disorder, single episode, moderate. Hayward II: Deferred. IMPRESSION: The patient is an 83-year-old female, who is diabetic with recent treatment for depression, who is admitted to the medical service for generalized weakness and sugars in the 400s. Psychiatry is asked to evaluate her for depression and difficulty sleeping. One anomaly in her current treatment is that her mirtazapine is being administered in the morning. Given the highly sedating effects of this medication, it would seem appropriate to switch this to bedtime administration, which I will place an order for. The mirtazapine dose could be increased; however, there is a paradoxical effect from this medication in that sedation and appetite stimulation are actually reduced at higher doses. For this reason, I would leave the dose at 15 mg and see how she does with nighttime scheduling. RECOMMENDATIONS TO PRIMARY TEAM: We will change mirtazapine dose to 15 mg p.o. q.h.s. Psychiatry will continue to follow the patient. It may be that there will eventually be a rationale for augmenting her with a second agent; however, the patient is declining this at this time. We will continue to provide psychoeducation as well as support to the patient along with the primary team. Thank you for the interesting consult. [id number]/[facility] #: [id number] FLORINDA
[2018-07-27 05:59] LABS: Hematocrit 41 % (35-47); Hemoglobin 13.5 g/dl (12.0-16.0); Mean Corpuscular HGB Conc 33 g/dl (31-36); Mean Corpuscular Hemoglobin 32 pg (27-31); Mean Corpuscular Volume 95 fL (80-97); Mean Platelet Volume 10.7 fL (7.4-10.4); Platelet Count 162 10^3/ul (150-450); Red Blood Count 4.29 10^6/ul (4.00-5.40); Red Cell Distribution Width 14 % (10.5-15); White Blood Count 3.8 10^3/ul (3.5-10.8)
[2018-07-27] MEDS: Heparin VIAL(*) 5000 UNITS/ML VIAL (FIVE THOUSAND) SUBCUT SCH ×3 (06:13→21:07)
[2018-07-27 06:16] LABS: BUN/Creatinine Ratio 25.8 (8-20); Calcium 8.4 mg/dL (8.6-10.3); Potassium 3.6 mmol/L (3.5-5.0)
[2018-07-27 06:34] LABS: ABS Basophils 0.1 10^3/ul (0-0.2); ABS Eosinophils 0.1 10^3/ul (0-0.6); ABS Lymphocytes 1.8 10^3/ul (1.0-4.8); ABS Monocytes 0.5 10^3/ul (0-0.8); ABS Neutrophils 1.4 10^3/ul (1.5-7.7); ABS Nucleated RBC 0 10^3/ul; Eosinophil % 2.3 %; Large Platelets Present; Lymphocyte % 47.8 %; Nucleated Red Blood Cells % 0.1
[2018-07-27] MEDS: Tiotropium CAP.INH* CAP.INH/18 MCG (USE ORDER SET !) INH SCH (07:27)
[2018-07-27] MEDS: Insulin LISPRO* 1 UNITS UNIT SUBCUT SCH ×7 (08:12→21:06)
--- NOTE | 2018-07-27 08:27 | PN ---
Subjective - Subjective Reason for Note: Progress Note History: She has no new pain/distress. I reviewed Dr. Arevalo and speech therapy reports. She is eating and drinking. She has had no further diarrhea Active Problems: Active Problems Labile blood glucose (Acute) R73.09 Weakness generalized (Acute) R53.1 Weight loss (Acute) Breast cancer, left (Chronic) C50.912 Chronic obstructive lung disease (Chronic) J44.9 DVT prophylaxis (Chronic 09/15/14) [id number] Essential hypertension (Chronic) I10 Fibrosis of lung (Chronic) J84.10 Fracture of femoral neck, right (Chronic 09/15/14) S72.001A Full code status (Chronic 09/15/14) Z78.9 History of fracture of left hip (Chronic) Z87.81 History of right hip hemiarthroplasty (Chronic) Z96.641 Hypercholesteremia (Chronic) E78.0 Migraine (Chronic) G43.909 Osteoporosis (Chronic) M81.0 Rheumatoid arthritis (Chronic) M06.9 Semi-starvation (Chronic) T73.0XXA Type 1 diabetes mellitus, uncontrolled (Chronic) E10.65 Current Medications: Current Medications Acetaminophen/Butalbital/Caffeine (Fioricet Tab*) 1 tab PO Q4HR PRN PRN Reason: MIGRAINE HEADACHE Last Admin: 07/26/18 14:54 Dose: 1 tab Amlodipine Besylate (Norvasc Tab*) 5 mg PO DAILY [facility] Last Admin: 07/26/18 10:05 Dose: 5 mg Dextrose (D50w Syringe 50 Ml*) 12.5 gm IV PUSH .FOR FS < 60 - SS PRN PRN Reason: FS < 60 Dextrose (D50w Syringe 50 Ml*) 12.5 gm IV PUSH .FOR FS < 60 - SS PRN PRN Reason: FS < 60 Docusate Sodium (Colace Cap*) 100 mg PO BID [facility] Last Admin: 07/26/18 22:06 Dose: 100 mg Heparin Sodium (Porcine) (Heparin Vial(*)) 5,000 units SUBCUT Q8HR [facility] Last Admin: 07/27/18 06:13 Dose: 5,000 units Insulin Glargine (Lantus(*)) 12 units SUBCUT Q24H [facility] Last Admin: 07/26/18 10:06 Dose: 12 unit Insulin Human Lispro (Humalog*) 0 units SUBCUT ACHS [facility]; Protocol Last Admin: 07/27/18 08:12 Dose: Not Given Insulin Human Lispro (Humalog*) 1 units SUBCUT AC [facility]; Protocol Last Admin: 07/26/18 19:49 Dose: 3 unit Mirtazapine (Remeron Tab*) 15 mg PO BEDTIME [facility] Last Admin: 07/26/18 22:06 Dose: 15 mg Naproxen (Naprosyn Tab*) 500 mg PO BID PRN PRN Reason: PAIN Oxybutynin Chloride (Ditropan Xl Tab*) 5 mg PO DAILY [facility] Last Admin: 07/26/18 10:04 Dose: 5 mg Prednisone (Deltasone Tab*) 10 mg PO DAILY [facility] Last Admin: 07/26/18 10:04 Dose: 10 mg Propranolol HCl (Inderal Tab*) 20 mg PO BID [facility] Last Admin: 07/26/18 22:06 Dose: 20 mg Tiotropium [place] (Spiriva Cap.Inh*) 1 cap INH DAILY [facility] Last Admin: 07/27/18 07:27 Dose: 1 cap Home Medications: Home Medications Medication Instructions Recorded Confirmed Type Propranolol TAB* [Inderal TAB*] 20 mg PO BID 09/26/12 07/19/18 History Oxybutynin XL TAB* [Ditropan Xl 5 mg PO DAILY 01/25/17 07/19/18 History TAB*] Alendronate (NF) [Fosamax (NF)] 70 mg PO WEEKLY 07/19/18 07/19/18 History Butalb/Acetamin/Caff TAB* 1 tab PO Q4HR PRN 07/19/18 07/19/18 History [Fioricet TAB*] Calcium Carbonate [Ymva-Szp-232] 500 mg PO DAILY 07/19/18 07/19/18 History Cholecalciferol (Vitamin D3) 1,000 unit PO DAILY 07/19/18 07/19/18 History [Vitamin D3] Glucagon* [Glucagen*] 1 mg IM ONCE PRN 07/19/18 07/19/18 History Insulin ASPART (NF) [Novolog (NF)] 2 unit SUBCUT AC MDD 30 unit 07/19/18 History Insulin GLARGINE(*) [Lantus(*)] 6 units SUBCUT BID MDD 30 units 07/19/18 History Insulin LISPRO* [HumaLOG*] 2 - 12 units SUBCUT AC 07/19/18 07/19/18 History LORazepam TAB(*) [Ativan 0.5 MG 0.5 mg PO Q6H PRN 07/19/18 07/19/18 History TAB (*)] Mirtazapine TAB* [Remeron TAB*] 15 mg PO DAILY 07/19/18 07/19/18 History Naproxen TAB* [Naprosyn 250 mg 500 mg PO BID PRN 07/19/18 07/19/18 History TAB*] Tiotropium CAP.INH* [Spiriva 1 cap.inh INH DAILY 07/19/18 07/19/18 History CAP.INH*] amLODIPine TAB* [Norvasc 5 mg TAB*] 5 mg PO DAILY 07/19/18 07/19/18 History predniSONE TAB* [Deltasone TAB*] 5 mg PO DAILY 07/19/18 07/19/18 History Potassium Chlor TAB* [Klor Con ER 20 meq PO BID #14 tab.er 07/22/18 Rx TAB*] Allergies: Allergies Allergy/AdvReac Type Severity Reaction Status Date / Time amitriptyline Allergy Unknown Verified 07/19/18 13:39 Reaction Details aspirin Allergy Bleeding Verified 07/19/18 13:39 hydroxychloroquine Allergy Rash Verified 07/19/18 13:39 latex Allergy Rash Verified 07/19/18 13:39 Penicillins Allergy Unknown Verified 07/19/18 13:39 Reaction Details Objective - Vital Signs Vital Signs: Vital Signs 07/26/18 07/26/18 07/26/18 09:33 11:44 14:54 Temperature 98.8 F Pulse Rate 72 78 Respiratory 16 16 22 Rate Blood Pressure 127/84 (mmHg) O2 Sat by Pulse 99 95 Oximetry 07/26/18 07/26/18 07/26/18 15:34 16:50 20:00 Temperature 99.7 F Pulse Rate 100 Respiratory 26 20 22 Rate Blood Pressure 105/77 (mmHg) O2 Sat by Pulse 94 Oximetry 07/26/18 07/26/18 07/27/18 20:11 23:14 03:26 Temperature 97.5 F 97.9 F 98.4 F Pulse Rate 95 89 80 Respiratory 22 18 15 Rate Blood Pressure 122/76 129/80 138/85 (mmHg) O2 Sat by Pulse 82 100 100 Oximetry 07/27/18 07:29 Temperature Pulse Rate 68 Respiratory 16 Rate Blood Pressure (mmHg) O2 Sat by Pulse 98 Oximetry - Intake and Output Intake and Output: Intake & Output 07/24/18 07/25/18 07/26/18 07/27/18 11:59 11:59 11:59 11:59 Intake Total 990 350 300 590 Balance 990 350 300 590 Weight 105 lb 102 lb 8 oz 100 lb 11.2 oz Intake: IV Fluids 55 NS (0.9%) 55 IVPB 55 magnesium 55 Oral 990 240 300 590 Other: Estimated Void Medium Small Large Date of Last Bowel 07/23/18 Movement # Bowel Movements 3 1 2 3 Estimated Stool Amount Medium Small Large Medium # Voids 1 1 1 ADLs: Meal Record Start: 07/19/18 20: 48 Freq: DAILY@0900,1400,1800 Status: Active Protocol: Created 07/19/18 20:48 System (Rec: 07/19/18 20:48 System MED-C11) Document 07/20/18 09:00 [id number] (Rec: 07/20/18 12:59 [id number] MED-C11) Document 07/20/18 14:00 [id number] (Rec: 07/20/18 14:09 [id number] MED-C09) Document 07/20/18 18:00 IRT0330 (Rec: 07/20/18 19:53 [id number] MED-C05) Document 07/21/18 09:00 [id number] (Rec: 07/21/18 10:56 [id number] MED-C11) Document 07/21/18 14:00 [id number] (Rec: 07/21/18 15:39 [id number] MED-M16) Document 07/21/18 18:00 DVM2389 (Rec: 07/21/18 20:49 [id number] MED-C02) Document 07/22/18 09:00 GWN9632 (Rec: 07/22/18 11:14 [id number] MED-C09) Document 07/22/18 14:00 WHT5771 (Rec: 07/22/18 14:45 KKS7544 MED-C09) Document 07/22/18 18:00 ILW4009 (Rec: 07/22/18 18:40 [id number] MED-C09) Document 07/23/18 09:00 [id number] (Rec: 07/23/18 12:15 [id number] MED-C11) Document 07/23/18 14:00 WKY6026 (Rec: 07/23/18 14:10 [id number] MED-C11) Document 07/23/18 18:00 WON9102 (Rec: 07/23/18 18:26 [id number] MED-M19) Document 07/24/18 09:00 [id number] (Rec: 07/24/18 10:31 [id number] MED-C11) Document 07/24/18 14:00 JOP4519 (Rec: 07/24/18 14:13 [id number] MED-C07) Document 07/24/18 18:00 [id number] (Rec: 07/24/18 18:32 [id number] MED-C16) Document 07/25/18 09:00 GSN7330 (Rec: 07/25/18 12:21 [id number] MED-C11) Document 07/25/18 14:00 WPD6900 (Rec: 07/25/18 15:07 [id number] MED-C11) Document 07/25/18 18:00 COG6757 (Rec: 07/25/18 18:54 [id number] MED-C09) Document 07/26/18 13:59 [id number] (Rec: 07/26/18 13:59 [id number] MED-C09) Document 07/26/18 18:00 [id number] (Rec: 07/26/18 22:01 [id number] MED-C11) Intake and Output Start: 07/19/18 12: 44 Freq: Status: Active Protocol: Created 07/19/18 12:44 System (Rec: 07/19/18 12:44 System ED-C26) Intake and Output Start: 07/19/18 20: 48 Freq: DAILY@0600,1400,2200 Status: Active Protocol: Created 07/19/18 20:48 System (Rec: 07/19/18 20:48 System MED-C11) Document 07/19/18 22:00 [id number] (Rec: 07/19/18 22:13 [id number] MED-C13) Document 01/23/19 05:23 GSA9317 (Rec: 07/20/18 05:24 [id number] MED-C13) Document 07/20/18 14:00 XKL0758 (Rec: 07/20/18 14:09 [id number] MED-C09) Document 07/20/18 22:00 [id number] (Rec: 07/20/18 22:59 [id number] MED-C09) Document 07/21/18 06:00 GPE9388 (Rec: 07/21/18 06:03 [id number] MED-C11) Document 07/21/18 14:00 UXK0654 (Rec: 07/21/18 14:07 [id number] MED-C11) Document 07/21/18 21:38 [id number] (Rec: 07/21/18 21:39 [id number] MED-C11) Document 07/22/18 05:50 [id number] (Rec: 07/22/18 05:50 [id number] MED-C11) Document 07/22/18 14:00 PVT0460 (Rec: 07/22/18 14:45 [id number] MED-C09) Document 07/22/18 22:00 [id number] (Rec: 07/23/18 00:21 [id number] MED-C09) Document 07/23/18 04:47 [id number] (Rec: 07/23/18 04:48 [id number] MED-C09) Document 07/23/18 14:00 GCG2633 (Rec: 07/23/18 14:10 [id number] MED-C11) Document 07/23/18 22:00 OEZ9007 (Rec: 07/24/18 00:39 [id number] MED-C04) Document 07/24/18 03:50 [id number] (Rec: 07/24/18 03:51 WYP1185 MED-C04) Document 07/24/18 14:00 UHM4595 (Rec: 07/24/18 14:13 [id number] MED-C07) Document 07/24/18 22:00 [id number] (Rec: 07/24/18 22:45 [id number] MED-C09) Document 07/25/18 06:00 JLA9525 (Rec: 07/25/18 06:23 [id number] MED-C09) Document 07/25/18 14:00 UTN1405 (Rec: 07/25/18 15:07 [id number] MED-C11) Document 07/25/18 22:00 FLH1673 (Rec: 07/25/18 22:03 [id number] MED-C11) Document 07/26/18 03:24 [id number] (Rec: 07/26/18 03:25 QFT2212 MED-M16) Document 07/26/18 05:49 [id number] (Rec: 07/26/18 05:51 [id number] MED-C09) Document 07/26/18 22:00 [id number] (Rec: 07/26/18 23:24 [id number] MED-C09) Document 07/27/18 05:58 [id number] (Rec: 07/27/18 05:59 [id number] MED-C09) - Physical Exam General: No Cyanosis, No Anemia, No Jaundice, No Clubbing Skin: Normal: Rash Lungs and Chest: Yes: Chest Expansion Full, Chest Expansion Symetrica, Crackles - fibrotic crackles at bases. No: Percussion Note Resonant - hyper-resonant, Vessicular Breath Sounds - emphysematous, Wheezes, Respiratory Distress, Use of Accessory Muscles Heart Rate and Rhythm: Regular Additional Cardiovascular: Yes: Normal Heart Sounds, Heart Murmur. No: Pedal Edema Abdominal Exam: Yes: Soft, Bowel Sounds Present. No: Distention, Abdominal Tenderness - Extremities Cranial Nerves II-XII Intact: Yes Limbs: Abnormal Power - generally, but not focally weak - Neuro Orientation: A/O x3 Psychiatric: Depressed Speech: Normal Results - Results Lab Results: Laboratory Results - last 24 hr 07/26/18 07/26/18 07/26/18 09:02 11:36 17:35 WBC RBC Hgb Hct MCV MCH MCHC RDW Plt Count MPV Neut % (Auto) Lymph % (Auto) [place] % (Auto) Eos % (Auto) Baso % (Auto) Absolute Neuts (auto) Absolute Lymphs (auto) Absolute Monos (auto) Absolute Eos (auto) Absolute Basos (auto) Absolute Nucleated RBC Nucleated RBC % Large Platelets Sodium Potassium Chloride Carbon Dioxide Anion Gap BUN Creatinine Est GFR ( Amer) Est GFR (Non-Af Amer) BUN/Creatinine Ratio Glucose POC Glucose (mg/dL) 127 H 218 H 246 H Calcium 07/26/18 07/27/18 07/27/18 21:01 03:06 05:50 WBC 3.8 RBC 4.29 Hgb 13.5 Hct 41 MCV 95 MCH 32 H MCHC 33 RDW 14 Plt Count 162 MPV 10.7 H Neut % (Auto) 35.8 Lymph % (Auto) 47.8 Treasure % (Auto) 12.7 Eos % (Auto) 2.3 Baso % (Auto) 1.4 Absolute Neuts (auto) 1.4 L Absolute Lymphs (auto) 1.8 Absolute Monos (auto) 0.5 Absolute Eos (auto) 0.1 Absolute Basos (auto) 0.1 Absolute Nucleated RBC 0 Nucleated RBC % 0.1 Large Platelets Present Sodium Potassium Chloride Carbon Dioxide Anion Gap BUN Creatinine Est GFR ( Amer) Est GFR (Non-Af Amer) BUN/Creatinine Ratio Glucose POC Glucose (mg/dL) 367 H 107 H Calcium 07/27/18 05:50 WBC RBC Hgb Hct MCV MCH MCHC RDW Plt Count MPV Neut % (Auto) Lymph % (Auto) [place] % (Auto) Eos % (Auto) Baso % (Auto) Absolute Neuts (auto) Absolute Lymphs (auto) Absolute Monos (auto) Absolute Eos (auto) Absolute Basos (auto) Absolute Nucleated RBC Nucleated RBC % Large Platelets Sodium 142 Potassium 3.6 Chloride 109 Carbon Dioxide 27 Anion Gap 6 BUN 17 Creatinine 0.66 Est GFR ( Amer) 104.0 Est GFR (Non-Af Amer) 86.0 BUN/Creatinine Ratio 25.8 H Glucose 173 H POC Glucose (mg/dL) Calcium 8.4 L Assessment - Problem List Assessment: Patient Problems Labile blood glucose (Acute) Weakness generalized (Acute) Weight loss (Acute) Breast cancer, left (Chronic) Chronic obstructive lung disease (Chronic) DVT prophylaxis (Chronic 09/15/14) Essential hypertension (Chronic) Fibrosis of lung (Chronic) Fracture of femoral neck, right (Chronic 09/15/14) Full code status (Chronic 09/15/14) History of fracture of left hip (Chronic) History of right hip hemiarthroplasty (Chronic) Hypercholesteremia (Chronic) Migraine (Chronic) Osteoporosis (Chronic) Rheumatoid arthritis (Chronic) Semi-starvation (Chronic) Type 1 diabetes mellitus, uncontrolled (Chronic) Plan: She is medically stable and ready for discharge. I discussed this with Mariajose Palacios. She agrees to a period of subacute rehabilitation at [facility].
[2018-07-27] MEDS: Oxybutynin XL TAB* 5 MG PO SCH (10:03)
[2018-07-27] MEDS: Insulin GLARGINE(*) 1 UNITS UNIT SUBCUT SCH (10:03)
[2018-07-27] MEDS: predniSONE TAB* 10 MG PO SCH (10:03)
[2018-07-27] MEDS: Propranolol TAB* 20 MG PO SCH ×2 (10:04→21:04)
[2018-07-27] MEDS: amLODIPine TAB* 5 MG PO SCH (10:04)
[2018-07-27] MEDS: Docusate CAP* 100 MG PO SCH ×2 (10:04→21:05)
[2018-07-27] MEDS: Butalb/Acetamin/Caff TAB* 1 TAB PO PRN (10:11)
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
[2018-07-27] MEDS: Mirtazapine TAB* 15 MG PO SCH (21:03)
[2018-07-28] MEDS: Heparin VIAL(*) 5000 UNITS/ML VIAL (FIVE THOUSAND) SUBCUT SCH ×2 (06:50→13:45)
--- NOTE | 2018-07-28 08:05 | PN ---
Subjective - Subjective Reason for Note: Discharge Note History: Discharge summary addendum She is awaiting insurance approval to discharge to a subacute rehab bed at [facility]. She has no new symptoms today - she has no pain and is no distress. Active Problems: Active Problems Labile blood glucose (Acute) R73.09 Weakness generalized (Acute) R53.1 Weight loss (Acute) Breast cancer, left (Chronic) C50.912 Chronic obstructive lung disease (Chronic) J44.9 DVT prophylaxis (Chronic 09/15/14) [id number] Essential hypertension (Chronic) I10 Fibrosis of lung (Chronic) J84.10 Fracture of femoral neck, right (Chronic 09/15/14) S72.001A Full code status (Chronic 09/15/14) Z78.9 History of fracture of left hip (Chronic) Z87.81 History of right hip hemiarthroplasty (Chronic) Z96.641 Hypercholesteremia (Chronic) E78.0 Migraine (Chronic) G43.909 Osteoporosis (Chronic) M81.0 Rheumatoid arthritis (Chronic) M06.9 Semi-starvation (Chronic) T73.0XXA Type 1 diabetes mellitus, uncontrolled (Chronic) E10.65 Current Medications: Current Medications Acetaminophen/Butalbital/Caffeine (Fioricet Tab*) 1 tab PO Q4HR PRN PRN Reason: MIGRAINE HEADACHE Last Admin: 07/27/18 10:11 Dose: 1 tab Amlodipine Besylate (Norvasc Tab*) 5 mg PO DAILY [facility] Last Admin: 07/27/18 10:04 Dose: 5 mg Dextrose (D50w Syringe 50 Ml*) 12.5 gm IV PUSH .FOR FS < 60 - SS PRN PRN Reason: FS < 60 Dextrose (D50w Syringe 50 Ml*) 12.5 gm IV PUSH .FOR FS < 60 - SS PRN PRN Reason: FS < 60 Docusate Sodium (Colace Cap*) 100 mg PO BID [facility] Last Admin: 07/27/18 21:05 Dose: Not Given Heparin Sodium (Porcine) (Heparin Vial(*)) 5,000 units SUBCUT Q8HR [facility] Last Admin: 07/28/18 06:50 Dose: 5,000 units Insulin Glargine (Lantus(*)) 12 units SUBCUT Q24H [facility] Last Admin: 07/27/18 10:03 Dose: 12 unit Insulin Human Lispro (Humalog*) 0 units SUBCUT ACHS [facility]; Protocol Last Admin: 07/27/18 21:06 Dose: 4 unit Insulin Human Lispro (Humalog*) 1 units SUBCUT AC [facility]; Protocol Last Admin: 07/27/18 19:06 Dose: 1 unit Mirtazapine (Remeron Tab*) 15 mg PO BEDTIME [facility] Last Admin: 07/27/18 21:03 Dose: 15 mg Naproxen (Naprosyn Tab*) 500 mg PO BID PRN PRN Reason: PAIN Oxybutynin Chloride (Ditropan Xl Tab*) 5 mg PO DAILY [facility] Last Admin: 07/27/18 10:03 Dose: 5 mg Prednisone (Deltasone Tab*) 10 mg PO DAILY [facility] Last Admin: 07/27/18 10:03 Dose: 10 mg Propranolol HCl (Inderal Tab*) 20 mg PO BID [facility] Last Admin: 07/27/18 21:04 Dose: 20 mg Tiotropium [place] (Spiriva Cap.Inh*) 1 cap INH DAILY [facility] Last Admin: 07/27/18 07:27 Dose: 1 cap Home Medications: Home Medications Medication Instructions Recorded Confirmed Type Propranolol TAB* [Inderal TAB*] 20 mg PO BID 09/26/12 07/19/18 History Oxybutynin XL TAB* [Ditropan Xl 5 mg PO DAILY 01/25/17 07/19/18 History TAB*] Alendronate (NF) [Fosamax (NF)] 70 mg PO WEEKLY 07/19/18 07/19/18 History Butalb/Acetamin/Caff TAB* 1 tab PO Q4HR PRN 07/19/18 07/19/18 History [Fioricet TAB*] Calcium Carbonate [Hvot-Eqm-469] 500 mg PO DAILY 07/19/18 07/19/18 History Cholecalciferol (Vitamin D3) 1,000 unit PO DAILY 07/19/18 07/19/18 History [Vitamin D3] Glucagon* [Glucagen*] 1 mg IM ONCE PRN 07/19/18 07/19/18 History Insulin ASPART (NF) [Novolog (NF)] 2 unit SUBCUT AC MDD 30 unit 07/19/18 History Insulin GLARGINE(*) [Lantus(*)] 6 units SUBCUT BID MDD 30 units 07/19/18 History Insulin LISPRO* [HumaLOG*] 2 - 12 units SUBCUT AC 07/19/18 07/19/18 History LORazepam TAB(*) [Ativan 0.5 MG 0.5 mg PO Q6H PRN 07/19/18 07/19/18 History TAB (*)] Naproxen TAB* [Naprosyn 250 mg 500 mg PO BID PRN 07/19/18 07/19/18 History TAB*] Tiotropium CAP.INH* [Spiriva 1 cap.inh INH DAILY 07/19/18 07/19/18 History CAP.INH*] amLODIPine TAB* [Norvasc 5 mg TAB*] 5 mg PO DAILY 07/19/18 07/19/18 History predniSONE TAB* [Deltasone TAB*] 5 mg PO DAILY 07/19/18 07/19/18 History Potassium Chlor TAB* [Klor Con ER 20 meq PO BID #14 tab.er 07/22/18 Rx TAB*] Mirtazapine TAB* [Remeron TAB*] 15 mg PO BEDTIME #0 07/27/18 07/19/18 Rx Allergies: Allergies Allergy/AdvReac Type Severity Reaction Status Date / Time amitriptyline Allergy Unknown Verified 07/19/18 13:39 Reaction Details aspirin Allergy Bleeding Verified 07/19/18 13:39 hydroxychloroquine Allergy Rash Verified 07/19/18 13:39 latex Allergy Rash Verified 07/19/18 13:39 Penicillins Allergy Unknown Verified 07/19/18 13:39 Reaction Details Objective - Vital Signs Vital Signs: Vital Signs 07/27/18 07/27/18 07/27/18 10:11 11:34 15:53 Temperature 98.5 F 98.4 F Pulse Rate 80 82 Respiratory 20 16 20 Rate Blood Pressure 126/88 131/86 (mmHg) O2 Sat by Pulse 97 100 Oximetry 07/27/18 07/27/18 07/27/18 17:51 19:56 21:07 Temperature 99.2 F Pulse Rate 56 Respiratory 16 24 22 Rate Blood Pressure 120/88 (mmHg) O2 Sat by Pulse 87 Oximetry 07/28/18 07/28/18 00:26 03:23 Temperature 98.7 F 98.3 F Pulse Rate 67 66 Respiratory 16 20 Rate Blood Pressure 150/87 149/87 (mmHg) O2 Sat by Pulse 100 98 Oximetry - Intake and Output Intake and Output: Intake & Output 07/25/18 07/26/18 07/27/18 07/28/18 11:59 11:59 11:59 11:59 Intake Total 350 300 810 480 Balance 350 300 810 480 Weight 102 lb 8 oz 100 lb 11.2 oz 100 lb 8 oz Intake: IV Fluids 55 NS (0.9%) 55 IVPB 55 magnesium 55 Oral 240 300 810 480 Other: Estimated Void Small Large Medium # Bowel Movements 1 2 3 0 Estimated Stool Amount Small Large Medium # Voids 1 1 1 ADLs: Meal Record Start: 07/19/18 20: 48 Freq: DAILY@0900,1400,1800 Status: Active Protocol: Created 07/19/18 20:48 System (Rec: 07/19/18 20:48 System MED-C11) Document 07/20/18 09:00 [id number] (Rec: 07/20/18 12:59 [id number] MED-C11) Document 07/20/18 14:00 [id number] (Rec: 07/20/18 14:09 [id number] MED-C09) Document 07/20/18 18:00 [id number] (Rec: 07/20/18 19:53 [id number] MED-C05) Document 07/21/18 09:00 [id number] (Rec: 07/21/18 10:56 [id number] MED-C11) Document 07/21/18 14:00 [id number] (Rec: 07/21/18 15:39 OFQ1307 MED-M16) Document 07/21/18 18:00 [id number] (Rec: 07/21/18 20:49 [id number] MED-C02) Document 07/22/18 09:00 [id number] (Rec: 07/22/18 11:14 [id number] MED-C09) Document 07/22/18 14:00 UKH9042 (Rec: 07/22/18 14:45 ZHD0701 MED-C09) Document 07/22/18 18:00 [id number] (Rec: 07/22/18 18:40 [id number] MED-C09) Document 07/23/18 09:00 [id number] (Rec: 07/23/18 12:15 [id number] MED-C11) Document 07/23/18 14:00 DDD1589 (Rec: 07/23/18 14:10 [id number] MED-C11) Document 07/23/18 18:00 UOT1946 (Rec: 07/23/18 18:26 [id number] MED-M19) Document 07/24/18 09:00 [id number] (Rec: 07/24/18 10:31 [id number] MED-C11) Document 07/24/18 14:00 [id number] (Rec: 07/24/18 14:13 UCZ1122 MED-C07) Document 07/24/18 18:00 KPR9894 (Rec: 07/24/18 18:32 [id number] MED-C16) Document 07/25/18 09:00 [id number] (Rec: 07/25/18 12:21 [id number] MED-C11) Document 07/25/18 14:00 [id number] (Rec: 07/25/18 15:07 [id number] MED-C11) Document 07/25/18 18:00 VLS2225 (Rec: 07/25/18 18:54 MKZ5129 MED-C09) Document 07/26/18 13:59 [id number] (Rec: 07/26/18 13:59 POT3087 MED-C09) Document 07/26/18 18:00 MAM1360 (Rec: 07/26/18 22:01 [id number] MED-C11) Document 07/27/18 09:00 EWK1942 (Rec: 07/27/18 12:00 [id number] MED-C02) Document 07/27/18 14:00 PKN7122 (Rec: 07/27/18 16:30 YTX0766 MED-C11) Document 07/27/18 18:00 [id number] (Rec: 07/27/18 22:49 [id number] MED-C09) Intake and Output Start: 07/19/18 12: 44 Freq: Status: Active Protocol: Created 07/19/18 12:44 System (Rec: 07/19/18 12:44 System ED-C26) Intake and Output Start: 07/19/18 20: 48 Freq: DAILY@0600,1400,2200 Status: Active Protocol: Created 01/22/19 20:48 System (Rec: 07/19/18 20:48 System MED-C11) Document 07/19/18 22:00 [id number] (Rec: 07/19/18 22:13 [id number] MED-C13) Document 07/20/18 05:23 [id number] (Rec: 07/20/18 05:24 [id number] MED-C13) Document 07/20/18 14:00 [id number] (Rec: 07/20/18 14:09 [id number] MED-C09) Document 07/20/18 22:00 HRQ6899 (Rec: 07/20/18 22:59 [id number] MED-C09) Document 07/21/18 06:00 IXZ1284 (Rec: 07/21/18 06:03 CKQ6321 MED-C11) Document 07/21/18 14:00 KNE0836 (Rec: 07/21/18 14:07 [id number] MED-C11) Document 07/21/18 21:38 [id number] (Rec: 07/21/18 21:39 [id number] MED-C11) Document 07/22/18 05:50 [id number] (Rec: 07/22/18 05:50 [id number] MED-C11) Document 07/22/18 14:00 YMD6983 (Rec: 07/22/18 14:45 [id number] MED-C09) Document 07/22/18 22:00 [id number] (Rec: 07/23/18 00:21 [id number] MED-C09) Document 07/23/18 04:47 HRJ0996 (Rec: 07/23/18 04:48 [id number] MED-C09) Document 07/23/18 14:00 PJT3126 (Rec: 07/23/18 14:10 UKP1067 MED-C11) Document 07/23/18 22:00 AFK8934 (Rec: 07/24/18 00:39 [id number] MED-C04) Document 07/24/18 03:50 [id number] (Rec: 07/24/18 03:51 RCS8167 MED-C04) Document 07/24/18 14:00 [id number] (Rec: 07/24/18 14:13 [id number] MED-C07) Document 07/24/18 22:00 [id number] (Rec: 07/24/18 22:45 EGO2350 MED-C09) Document 07/25/18 06:00 HMS9755 (Rec: 07/25/18 06:23 [id number] MED-C09) Document 07/25/18 14:00 [id number] (Rec: 07/25/18 15:07 [id number] MED-C11) Document 07/25/18 22:00 SFC6543 (Rec: 07/25/18 22:03 PFK8910 MED-C11) Document 07/26/18 03:24 [id number] (Rec: 07/26/18 03:25 [id number] MED-M16) Document 07/26/18 05:49 KZE6221 (Rec: 07/26/18 05:51 MLW1050 MED-C09) Document 07/26/18 22:00 HMS0841 (Rec: 07/26/18 23:24 [id number] MED-C09) Document 07/27/18 05:58 [id number] (Rec: 07/27/18 05:59 UPT2539 MED-C09) Document 07/27/18 14:00 [id number] (Rec: 07/27/18 15:11 [id number] MED-C11) Document 07/27/18 22:00 [id number] (Rec: 07/27/18 22:52 [id number] MED-C09) Document 07/28/18 05:59 [id number] (Rec: 07/28/18 06:01 [id number] MED-C04) - Physical Exam General: No Cyanosis, Yes Anemia, No Jaundice, No Clubbing Lungs and Chest: Yes: Chest Expansion Full, Chest Expansion Symetrica. No: Percussion Note Resonant - Hyperresonant, Vessicular Breath Sounds - emphysematous, Wheezes, Respiratory Distress, Use of Accessory Muscles Heart Rate and Rhythm: Regular Additional Cardiovascular: Yes: Normal Heart Sounds. No: Heart Murmur, Pedal Edema Abdominal Exam: Yes: Soft. No: Distention, Abdominal Tenderness - Neuro Orientation: A/O x3 Speech: Normal Results - Results Lab Results: Laboratory Results - last 24 hr 07/27/18 07/27/18 07/27/18 08:11 11:48 17:36 POC Glucose (mg/dL) 124 H 304 H 159 H 01/30/19 01/31/19 20:48 07:32 POC Glucose (mg/dL) 333 H 80 Assessment - Problem List Assessment: Patient Problems Labile blood glucose (Acute) Weakness generalized (Acute) Weight loss (Acute) Breast cancer, left (Chronic) Chronic obstructive lung disease (Chronic) DVT prophylaxis (Chronic 09/15/14) Essential hypertension (Chronic) Fibrosis of lung (Chronic) Fracture of femoral neck, right (Chronic 09/15/14) Full code status (Chronic 09/15/14) History of fracture of left hip (Chronic) History of right hip hemiarthroplasty (Chronic) Hypercholesteremia (Chronic) Migraine (Chronic) Osteoporosis (Chronic) Rheumatoid arthritis (Chronic) Semi-starvation (Chronic) Type 1 diabetes mellitus, uncontrolled (Chronic) Plan: She is stable and ready for discharge to [facility].
[2018-07-28] MEDS: Tiotropium CAP.INH* CAP.INH/18 MCG (USE ORDER SET !) INH SCH (08:09)
[2018-07-28] MEDS: Insulin LISPRO* 1 UNITS UNIT SUBCUT SCH ×4 (08:19→13:11)
[2018-07-28] MEDS: Insulin GLARGINE(*) 1 UNITS UNIT SUBCUT SCH (10:10)
[2018-07-28] MEDS: Docusate CAP* 100 MG PO SCH (10:11)
[2018-07-28] MEDS: Propranolol TAB* 20 MG PO SCH (10:11)
[2018-07-28] MEDS: predniSONE TAB* 10 MG PO SCH (10:11)
[2018-07-28] MEDS: amLODIPine TAB* 5 MG PO SCH (10:11)
[2018-07-28] MEDS: Oxybutynin XL TAB* 5 MG PO SCH (10:11)
[2018-07-28] MEDS: Butalb/Acetamin/Caff TAB* 1 TAB PO PRN (10:23)
[2018-07-28 12:31] VITALS: BP 132/86
== END 2018-07-28 13:20 | DRG 638 ==
LOC: ED 12:38 → MED 16:36
PROVIDERS: ADMIT Internal Medicine; ATTEND Internal Medicine
DX: E10.10 Type 1 diabetes mellitus with ketoacidosis without coma (principal); Z68.1 Body mass index [BMI] 19.9 or less, adult; J96.11 Chronic respiratory failure with hypoxia; F32.1 Major depressive disorder, single episode, moderate; E46 Unspecified protein-calorie malnutrition; Z96.642 Presence of left artificial hip joint; I10 Essential (primary) hypertension; G40.909 Epilepsy, unspecified, not intractable, without status epilepticus; M81.0 Age-related osteoporosis without current pathological fracture; M06.842 Other specified rheumatoid arthritis, left hand; K59.00 Constipation, unspecified; R74.8 Abnormal levels of other serum enzymes; C50.912 Malignant neoplasm of unspecified site of left female breast; M06.841 Other specified rheumatoid arthritis, right hand; E78.00 Pure hypercholesterolemia, unspecified; E86.0 Dehydration; J84.112 Idiopathic pulmonary fibrosis; R62.7 Adult failure to thrive; J43.9 Emphysema, unspecified; D15.1 Benign neoplasm of heart; I08.3 Combined rheumatic disorders of mitral, aortic and tricuspid valves; R53.1 Weakness; I27.20 Pulmonary hypertension, unspecified; R19.7 Diarrhea, unspecified; E10.649 Type 1 diabetes mellitus with hypoglycemia without coma; E83.42 Hypomagnesemia; Z98.42 Cataract extraction status, left eye; Z88.0 Allergy status to penicillin; Z88.8 Allergy status to other drugs, medicaments and biological substances; Z91.040 Latex allergy status; Z87.891 Personal history of nicotine dependence; Z98.41 Cataract extraction status, right eye; Z80.0 Family history of malignant neoplasm of digestive organs; Z79.4 Long term (current) use of insulin; Z79.52 Long term (current) use of systemic steroids
CPT/HCPCS: 36415; 71045; 74019; 80048; 80053; 81003; 82550; 82607; 82803; 82947; 83605; 83735; 83880; 84100; 84439; 84443; 84479; 84484; 85025; 85027; 85610; 86140; 87040; 93005; 93306; 94640; 97530; 99284; A9270-GY; G8978-GP-CL; G8979-GP-CI; G8987-GO-CK; G8988-GO-CI; J0360; J1644; J3475; J7512